=== PATIENT | female | born 1940 | race Caucasian/White ===

== ENCOUNTER → 2016-09-27 | Outpatient (CLI) | payer MEDICARE, OTHER ==
--- NOTE | 2016-09-27 15:42 | MAM ---
History: Well woman exam. Date of exam: 09/27/2016 Services provided: Bilateral full field digital screening mammography. CAD, the images were reviewed with R2 computer aided detection. FINDINGS: Glandular tissue is scattered glandular contour with nodularity and increased mammographic density. Comparison with 2014 study. Stable glandular distribution. No dominant mass, architectural distortion or clustered microcalcification. Vascular and benign-appearing calcifications bilaterally. IMPRESSION: Benign exam Recommendation: Routine annual mammography BIRAD CATEGORY: 2 BENIGN Electronically signed by: Mere Fountain MD 09/27/2016 3:42 PM CDT
== END | disposition home or self-care (01) ==
LOC: MAMMO 14:59
PROVIDERS: ATTEND Family Medicine
DX: Z12.31 Encounter for screening mammogram for malignant neoplasm of breast (principal)

== ENCOUNTER → 2016-10-26 | Outpatient (CLI) | payer MEDICARE, OTHER ==
--- NOTE | 2016-10-26 14:37 | RAD ---
EXAM DESCRIPTION: UGI CLINICAL HISTORY: OTHER DYSPHAGIA COMPARISON: None TECHNIQUE: Preliminary AP general ophthalmologist radiograph. The patient swallowed gas-producing granules, water, and heavy-density barium under fluoroscopic visualization. Patient also drank medium-density barium through a straw, prone position. The images were obtained with the patient upright and horizontal. 22 fluoroscopic images taken. Fluoroscopy time was 3.8 minutes. Cumulative dose: 173.55 mGy. 34.79 Gy-cm2. FINDINGS: On the preliminary general ophthalmologist film, a gas-filled structure is visible in the midline overlying the lower mediastinum above the diaphragms. No significant abnormalities in the pharyngeal phase of swallowing. No aspiration. Primary peristaltic wave is limited in the mid and distal esophagus. Secondary and tertiary contractions are noted. Large, gas-filled hiatal hernia containing almost 50% of the stomach volume. Moderate gastroesophageal reflux from the hernia above the level of the tracheal jessica, almost to the level of the thoracic inlet. Stomach was well distended with contrast material and gas. No significant intrinsic lesions. No mass effect. Duodenal bulb and sweep well-distended with contrast material and gas. Duodenal bulb grossly normal. Large diverticulum in the superior aspect of the third segment of the duodenum. Smaller diverticulum in the proximal jejunum. No Obstruction. IMPRESSION: 1. No aspiration at the larynx. No mass effect on the mid and distal esophagus. Diminished primary peristaltic wave with secondary and tertiary contractions. 2. Large hiatal hernia involving almost half of the stomach volume. Marked gastroesophageal reflux above the level of the tracheal jessica. 3. Large diverticulum in the third segment of the duodenum. Small diverticulum in the proximal jejunum. Electronically signed by: Fahad Farley MD 10/26/2016 2:36 PM CDT Workstation: [id number]
== END | disposition home or self-care (01) ==
LOC: RAD 09:55
PROVIDERS: ATTEND Family Medicine
DX: R13.19 Other dysphagia (principal); K44.9 Diaphragmatic hernia without obstruction or gangrene

== ENCOUNTER → 2017-01-04 | Outpatient (CLI) | payer MEDICARE, OTHER ==
--- NOTE | 2017-01-05 13:32 | US ---
EXAM DESCRIPTION: Thyroid CLINICAL HISTORY: 76 years Female, NODULE COMPARISON: None. FINDINGS: Both lobes of the thyroid are heterogeneous with multiple nodules. The right lobe is 4.6 x 1.9 x 2.1 cm and the left lobe is 4.7 x 2.0 x 2.1 cm with the isthmus 5 mm in thickness. Multiple nodules in each lobe in at least one nodule in the isthmus is identified. On the right, there is a wider than tall densely calcified 1.6 x 1.1 x 0.7 cm nodule in the upper pole within additional wider than tall hypoechoic slightly heterogeneous nodule 1.6 x 1.2 x 0.8 cm in the lower pole. A third small 0.9 x 0.7 x 0.8 cm nodule in the lower pole laterally is also noted. The isthmus demonstrates a hyperechoic wider than tall 1.4 x 1.2 x 0.9 cm nodule just to the right of midline. On the left a wider than tall upper pole mixed hypoechoic and hyperechoic 1.2 x 1.1 x 0.9 cm nodule is noted. An additional isoechoic nodule posteriorly in the mid left lobe that is wider than tall and measures 1.3 x 0.8 x 0.9 cm is present. In the lower pole, a heterogeneous wider than tall hypoechoic partially calcified nodule measures 1.6 x 1.7 x 1.3 cm. IMPRESSION: Mild thyromegaly with multinodular goiter with multiple nodules ranging from subcentimeter to approximately 1.7 cm in maximal diameter bilaterally. An additional thyroid isthmus 1.4 cm nodule is noted. Follow-up sonographic evaluation with repeat imaging in 6-9 months to reevaluate stability of these nodules is recommended. Electronically signed by: German Worthy MD 01/05/2017 1:31 PM CDT
== END ==
LOC: US 14:45
PROVIDERS: ATTEND Family Medicine
DX: E04.1 Nontoxic single thyroid nodule (principal)

== ENCOUNTER → 2017-02-08 | Outpatient (CLI) | payer MEDICARE, OTHER | END | disposition home or self-care (01) | LOC: GMAJ 16:35 | PROVIDERS: ATTEND Family Medicine | DX: I10 Essential (primary) hypertension (principal) ==

== ENCOUNTER 2017-03-30 16:02 | Emergency (ER) | payer MEDICARE, OTHER ==
[2017-03-30 16:21] VITALS: TEMP 98.4
--- NOTE | 2017-03-30 16:43 | RAD ---
EXAM DESCRIPTION: Chest,2 Views CLINICAL HISTORY: cough, sob COMPARISON: October 21, 2013 TECHNIQUE: PA/lateral FINDINGS: Mild cardiomegaly is present with vascularity within the limits of normal. I suspect the patient has a modest retrocardiac hiatal hernia. The lungs are adequately expanded and essentially clear with slightly coarsened basilar markings. Overt edema or dense consolidation or mass is not apparent. Kyphosis of the dorsal spine is noted. IMPRESSION: Cardiomegaly without congestive failure with tortuous calcified aorta and probable moderately large hiatal hernia. Electronically signed by: German Worthy MD 03/30/2017 4:42 PM CDT
[2017-03-30] MEDS ORDERED: SODIUM BICARBONATE VIAL 100 MEQ in SODIUM CHLORIDE 0.9% 1000ML 1,000 ML IVS PRN (16:44)
[2017-03-30] MEDS ORDERED: IPRATROPIUM/ALBUTEROL 3 ML VIAL NEB ONE ×2 (17:05→17:12)
[2017-03-30 17:20] VITALS: O2SAT 94
[2017-03-30] MEDS ORDERED: LEVALBUTEROL NEBS 1.25 MG/3 ML VIAL NEB ONE (18:40)
[2017-03-30] MEDS ORDERED: methylPREDNISolone SODIUM SUC 125 MG/2 ML VIAL IV ONE (18:40)
--- NOTE | 2017-03-30 18:52 | ED.PDOC ---
History of Present Illness - General Chief Complaint: Respiratory Problem Stated Complaint: cough,shortness of breath Time Seen by Provider: 03/30/17 18:33 Source: patient Exam Limitations: no limitations - History of Present Illness Initial Comments: Jenn Vera 76 y/o female stated that she had long standing history of bronchial asthma and had worsening cough and shortness of breath for the last 3 days.No fever ,no chest pains ,no nausea vomiting.Has home Oxygen. Timing/Duration: getting worse, other - 3-4 days ago forgot her LABA and Xopenex at home presently lives with daughter Possible Cause: allergen exposure Improving Factors: nothing Worsening Factors: nothing Associated Symptoms: other - see hpi Allergies/Adverse Reactions: Allergies NSAIDs Allergy (Verified 08/09/13 08:47) Home Medications: Ambulatory Orders Albuterol 2 mg/5 ml [Proventil] 1 unit INH QID 10/21/13 Anastrozole [Arimidex] 1 mg PO AM 10/21/13 Bifidobacterium Infantis [Align] 4 mg PO DAILY 10/21/13 Calcium Carbonate 600 mg PO BID 10/21/13 Fexofenadine HCl [Yvonne Allergy] 180 mg PO AM 10/21/13 Fluticasone/Salmeterol 250/50 [Advair 250/50 Diskus] 2 puff INH BID 10/21/13 Hyoscyamine Sulfate [Symax-Sl] 0.125 mg SL BID 10/21/13 Magnesium Oxide (mg Supplement [Magnesium Oxide] 400 mg PO BID 10/21/13 Pantoprazole Suspension [Protonix Suspension] 40 mg PO AM 10/21/13 Paroxetine HCl [Paxil] 20 mg PO AM 10/21/13 Prednisolone [Millipred] 5 mg PO DAILY 10/21/13 Simvastatin [Zocor] 40 mg PO HS 10/21/13 Benzonatate Perles [Tessalon Perles] 200 mg PO BID #30 cap 03/30/17 Methylprednisolone [Medrol Dose Leland] 1 pack PO BID #1 pack 03/30/17 Review of Systems - Review of Systems Constitutional: States: no symptoms reported EENTM: States: nose congestion Respiratory: States: see HPI Cardiology: States: no symptoms reported Gastrointestinal/Abdominal: States: no symptoms reported Genitourinary: States: no symptoms reported Past Medical History (General) - Patient Medical History Hx Seizures: No Hx Stroke: No Hx Asthma: Yes Hx of COPD: No Hx Cardiac Disorders: Yes Hx Congestive Heart Failure: Yes - diastolic Hx Pacemaker: No Hx Hypertension: Yes Hx Diabetes: No Hx Cancer: Yes - Breast Hx MRSA: No Hx Other PMH: Yes - crohns disease Surgical History: appendectomy, cholecystectomy, tonsillectomy, other - mastectomy left,hysterectomy,urinary bladder susp.,cataract bilateral - Vaccination History Hx Influenza Vaccination: No Hx Pneumococcal Vaccination: Yes - Social History Hx Tobacco Use: No Hx Alcohol Use: No Hx Substance Use: No Hx Physical Abuse: No Hx Emotional Abuse: No Hx Suspected Abuse: No - Activities of Daily Living Patient Lives Alone: No - daughter Grooming Ability: Independent Eating (Feeding) Ability: Independent Toileting Ability: Independent Family Medical History - Family History Mother Family History: Unknown Hx Family Asthma: Yes - parents Hx Family Cancer: Yes - breast-mom Physical Exam - Physical Exam General Appearance: Alert, No apparent distress Eye Exam: bilateral normal ENT Exam: normal ENT inspection, hearing grossly normal, pharynx normal, nasal congestion Neck: non-tender, supple, trachea midline Respiratory: no respiratory distress, decreased breath sounds, wheezing, other - speaks in full sentences Cardiovascular/Chest: normal peripheral pulses, regular rate, rhythm, no murmur Gastrointestinal/Abdominal: non tender, soft, no organomegaly Extremity: no pedal edema, no calf tenderness Neurologic: alert, normal mood/affect, oriented x 3 Skin Exam: normal color, warm/dry Lymphatic: no adenopathy Progress - Progress Progress: 03/30/17 18:57 Vital Signs - 8 hr 03/30/17 03/30/17 03/30/17 16:16 17:13 17:14 Temperature 98.4 F Pulse Rate 60 Pulse Rate [ 61 Right Brachial] Respiratory 20 24 18 Rate Blood Pressure 104/52 [Right Arm] O2 Sat by Pulse 93 L 96 Oximetry 03/30/17 03/30/17 17:20 18:54 Temperature Pulse Rate 87 Pulse Rate [ 58 L Right Brachial] Respiratory 20 18 Rate Blood Pressure 105/49 [Right Arm] O2 Sat by Pulse 94 L 94 L Oximetry 03/30/17 16:23 BLOOD CULTURE Stat 03/31/17 09:00 [facility] Daily Laboratory Results - last 24 hr 03/30/17 03/30/17 16:23 16:46 WBC 8.7 RBC 4.48 Hgb 13.3 Hct 39.4 MCV 88.1 MCH 29.8 MCHC 33.8 RDW 13.4 Plt Count 240 MPV 9.0 Absolute Neuts (auto) 7.00 H Absolute Lymphs (auto) 0.70 L Absolute Monos (auto) 0.60 Absolute Eos (auto) 0.40 Absolute Basos (auto) 0.10 Neutrophils % 80.2 H Lymphocytes % 7.8 L Monocytes % 6.5 Eosinophils % 4.7 Basophils % 0.8 Sodium 138 Potassium 3.9 Chloride 98 L Carbon Dioxide 28 Anion Gap 15.9 BUN 19 H Creatinine 1.10 BUN/Creatinine Ratio 17.3 Random Glucose 94 Serum Osmolality 277.7 Calcium 10.6 H Total Bilirubin 0.7 AST 18 ALT 12 Alkaline Phosphatase 65 Serum Total Protein 6.9 Albumin 4.0 Globulin 2.9 Albumin/Globulin Ratio 1.4 - EKG/XRAY/CT XRAY: chest - cardiomegaly no failure Departure - Departure Clinical Impression: Asthma with acute exacerbation in adult Qualifiers: Asthma severity: unspecified severity Qualified Code(s): J45.901 - Unspecified asthma with (acute) exacerbation Time of Disposition: 20:07 Disposition: Discharge to Home or Self Care Departure Forms: ED Discharge - Pt. Copy, Patient Portal Self Enrollment Instructions: Tips for Controlling Your Asthma, Asthma -- Adult, DI for Asthma -- Adult Referrals: Socrates Mclain MD [Primary Care Provider] - 1-2 Weeks Prescriptions: Benzonatate Perles [Tessalon Perles] 200 mg PO BID #30 cap Methylprednisolone [Medrol Dose Leland] 1 pack PO BID #1 pack Home Medications: Ambulatory Orders Albuterol 2 mg/5 ml [Proventil] 1 unit INH QID 10/21/13 Anastrozole [Arimidex] 1 mg PO AM 10/21/13 Bifidobacterium Infantis [Align] 4 mg PO DAILY 10/21/13 Calcium Carbonate 600 mg PO BID 10/21/13 Fexofenadine HCl [Yvonne Allergy] 180 mg PO AM 10/21/13 Fluticasone/Salmeterol 250/50 [Advair 250/50 Diskus] 2 puff INH BID 10/21/13 Hyoscyamine Sulfate [Symax-Sl] 0.125 mg SL BID 10/21/13 Magnesium Oxide (mg Supplement [Magnesium Oxide] 400 mg PO BID 10/21/13 Pantoprazole Suspension [Protonix Suspension] 40 mg PO AM 10/21/13 Paroxetine HCl [Paxil] 20 mg PO AM 10/21/13 Prednisolone [Millipred] 5 mg PO DAILY 10/21/13 Simvastatin [Zocor] 40 mg PO HS 10/21/13 Benzonatate Perles [Tessalon Perles] 200 mg PO BID #30 cap 03/30/17 Methylprednisolone [Medrol Dose Leland] 1 pack PO BID #1 pack 03/30/17 Additional Instructions: Continue with all home medications and home oxygen;Follow up with primary md call for appointment
[2017-03-30] MEDS ORDERED: BENZONATATE PERLES 100 MG CAP PO ONE (20:12)
[2017-03-30 20:29] VITALS: BP 130/57
== END 2017-03-30 20:29 | disposition home or self-care (01) ==
LOC: ER 16:02
DX: J45.901 Unspecified asthma with (acute) exacerbation (principal); I51.7 Cardiomegaly; I11.0 Hypertensive heart disease with heart failure; I50.30 Unspecified diastolic (congestive) heart failure; Z85.3 Personal history of malignant neoplasm of breast; Z87.891 Personal history of nicotine dependence; Z88.6 Allergy status to analgesic agent
CPT/HCPCS: 71020; 80053; 85025; 94640; J2930; J7614; J7620

== ENCOUNTER 2017-04-13 18:13 | Inpatient (IN) | payer MEDICARE, OTHER ==
[2017-04-13] MEDS ORDERED: ACETAMINOPHEN 325 MG TAB PO ONE (18:40)
[2017-04-13] MEDS ORDERED: IPRATROPIUM/ALBUTEROL 3 ML VIAL NEB ONE ×3 (18:50→18:51)
[2017-04-13] MEDS ORDERED: methylPREDNISolone SODIUM SUC 125 MG/2 ML VIAL IV ONE (19:10)
[2017-04-13] MEDS ORDERED: AZITHROMYCIN IV 500 MG in SODIUM CHLORIDE 0.9% 250ML 250 ML IVPB ONE (19:10)
[2017-04-13] MEDS ORDERED: cefTRIAXone SODIUM 1 GM in SODIUM CHL 0.9% 50ML MIN-BAG+ 50 ML IVPB ONE (19:10)
[2017-04-13] MEDS ORDERED: AZITHROMYCIN IV 500 MG VIAL IVPB ONE (19:23)
[2017-04-13] MEDS ORDERED: cefTRIAXone SODIUM 1 GM VIAL ONE (19:23)
[2017-04-13] MEDS ORDERED: SODIUM CHLORIDE 0.9% 250ML 250 ML ONE (19:24)
[2017-04-13] MEDS ORDERED: SODIUM CHL 0.9% 50ML MIN-BAG+ 50 ML IVPB ONE (19:24)
--- NOTE | 2017-04-13 20:08 | ED.PDOC ---
History of Present Illness - General Time Seen by Provider: 04/13/17 18:15 Source: patient Exam Limitations: no limitations - History of Present Illness Initial Comments: the patient's a 76-year-old female presenting to the emergency room secondary to a COPD exacerbation that apparently started several weeks ago, improved for a period of 5 or 6 days and then has become worse over the last 4- 5 days. The patient did undergo a steroid taper last week. The patient does have a fever here but she did not know that she was having any fevers. She is having a mildly productive cough. She has been doing her nebulizer treatments but only once a day. The patient is feeling weak and somewhat dizzy. Her oxygen saturations were in the high 80s on room air while sitting up. Today. She does get a little more short of breath with lying back. The patient has audible wheezes that can be heard across the room. She has a moderate increased work of breathing with nasal flaring and obvious accessory muscle use. Her oxygen saturations do improved with supplemental oxygen. no chest pains or palpitations. No syncope. The patient was sent over from clinic. Timing/Duration: unsure Severity: moderate Improving Factors: nothing Worsening Factors: nothing Associated Symptoms: cough, fever/chills, malaise, shortness of breath, weakness Allergies/Adverse Reactions: Allergies NSAIDs Allergy (Verified 08/09/13 08:47) Home Medications: Ambulatory Orders Calcium Carbonate 600 mg PO BID 10/21/13 Simvastatin [Zocor] 40 mg PO HS 10/21/13 Amlodipine Besylate 5 mg PO DAILY 04/13/17 Budesonide-Formoterol Fumarate [Symbicort] 1 aer IN BID 04/13/17 Cholecalciferol [Vitamin D] 1,000 unit PO DAILY 04/13/17 Cyanocobalamin Inj [Vitamin B-12 Inj] 1,000 mcg IM MONTHLY 04/13/17 Denosumab [Prolia] 60 mg SC PRN 04/13/17 Dexlansoprazole [Dexilant] 30 mg PO DAILY 04/13/17 Escitalopram Oxalate [Lexapro] 20 mg PO BEDTIME 04/13/17 Ferrous Gluconate [Fergon] 27 mg PO DAILY 04/13/17 Hydrochlorothiazide 12.5 mg PO DAILY 04/13/17 Hyoscyamine Sulfate [Levsin] 0.125 mg PO PRN 04/13/17 Isosorbide Mononitrate [Isosorbide Mononitrate ER] 30 mg PO DAILY 04/13/17 Letrozole 2.5 mg PO DAILY 04/13/17 Levalbuterol Inhaler [Xopenex Hfa 45 Mcg] 2 puff INH PRN 04/13/17 Magnesium 250 mg PO DAILY 04/13/17 Metoprolol Tartrate 25 mg PO BID 04/13/17 Mometasone Furoate Nasal [place] [Nasonex Nasal [place]] 50 mcg NA DAILY 04/13/17 Montelukast [Singulair] 10 mg PO DAILY 04/13/17 Multiple Vitamins W/ Minerals [Multi Complete/Iron] 1 tab PO DAILY 04/13/17 Prednisone 5 mg PO DAILY 04/13/17 Probiotic Product [Probiotic] 1 tab PO DAILY 04/13/17 Quinapril HCl 5 mg PO BID 04/13/17 Tramadol-Acetaminophen [Tramadol Hydrochloride/AC 37.5-325 mg] 1 tab PO BEDTIME 04/13/17 Zolpidem Tartrate [Ambien] 5 mg PO PRN 04/13/17 Review of Systems - Review of Systems Constitutional: States: fever, malaise, weakness EENTM: States: no symptoms reported Respiratory: States: cough, orthopnea, short of breath, wheezing Cardiology: States: no symptoms reported Gastrointestinal/Abdominal: States: no symptoms reported Genitourinary: States: no symptoms reported Musculoskeletal: States: no symptoms reported Skin: States: no symptoms reported Neurological: States: anxiety Endocrine: States: no symptoms reported All other Systems: No Change from Baseline Past Medical History (General) - Patient Medical History Hx Seizures: No Hx Stroke: No Hx Dementia: No Hx Asthma: Yes Hx of COPD: Yes Hx Cardiac Disorders: Yes Hx Congestive Heart Failure: Yes Hx Pacemaker: No Hx Hypertension: Yes Hx Thyroid Disease: Yes - surg 1960 Hx Diabetes: No Hx Gastroesophageal Reflux: Yes Hx Renal Disease: No Hx Cancer: Yes Hx of HIV: No Hx Hepatitis C: No Hx MRSA: No Surgical History: cancer surgery, cholecystectomy, Hysterectomy, other - Vaccination History Hx Tetanus, Diphtheria Vaccination: No Hx Influenza Vaccination: Yes - 2015 Hx Pneumococcal Vaccination: Yes - 2016 Immunizations Up to Date: No - Social History Hx Tobacco Use: No Hx Chewing Tobacco Use: No Hx Alcohol Use: No Hx Substance Use: No Hx Substance Use Treatment: No Hx Depression: Yes Feels Threatened In Home Enviroment: No Feels Threatened In a Relationship: No Hx Physical Abuse: No Hx Emotional Abuse: No Hx Suspected Abuse: No - Female History Patient is a Female of Child Bearing Age (10 -59 yrs old): No Patient : No - Triage Comment ED Triage Comment: HX Overactive Bladder, High Cholesterol, Post Polio Syndrome Family Medical History - Family History Mother Family History: Unknown Living Status: Hx Family Asthma: Yes - parents Hx Family Congestive Heart Failure: Yes Hx Family Hypertension: Yes Hx Family Stroke: Yes - Mother Age of Onset (years of age): 88 Hx Cardiac Disease: Yes - daddy [place] Age of Onset (years of age): 66 Hx Family Diabetes: No Hx Family Cancer: Yes - breast-mom Physical Exam - Physical Exam General Appearance: Alert, Anxious, Obvious distress Eye Exam: bilateral normal Ears, Nose, Throat: hearing grossly normal, normal ENT inspection, normal pharynx Neck: full range of motion, supple, normal inspection Respiratory: chest non-tender, respiratory distress, decreased breath sounds, accessory muscle use, crackles, rhonchi, wheezing Cardiovascular/Chest: normal peripheral pulses, regular rate, rhythm, no edema Peripheral Pulses: radial,right: 2+, radial,left: 2+, dorsalis pedis,right: 2+, dorsalis pedis,left: 2+ Gastrointestinal/Abdominal: non tender, soft Rectal Exam: deferred Back Exam: normal inspection, no CVA tenderness, no vertebral tenderness Extremity: normal range of motion, non-tender, normal inspection, no pedal edema , no calf tenderness, normal capillary refill Neurologic: shot hole shooter II-XII nml as tested, alert, normal mood/affect, oriented x 3 Skin Exam: normal color Comments: Vital Signs - 24 hr 04/13/17 04/13/17 04/13/17 18:16 18:30 19:00 Temperature 101.0 F H Pulse Rate 66 Pulse Rate [ 70 Right Apical] Respiratory 18 22 Rate Blood Pressure 117/52 [Right Arm] O2 Sat by Pulse 89 L 94 L 94 L Oximetry Progress - Progress Progress: 04/13/17 20:11 the patient's a 76-year-old female presenting to the emergency room secondary to what appears to be an acute on chronic COPD exacerbation with probable underlying infection given the fever. She may be having a mild CHF component to this as well. The patient is on supplemental oxygen and has received several breathing treatments. The patient has had a blood culture taken and is receiving a dose of Rocephin and azithromycin. She is also receiving a dose of Solu-Medrol. She has not received any diuretics for the CHF component as it is at this point clinically less an aspect of fluid overload and more probably an aspect of pulmonary hypertension related to his COPD exacerbation. she may yet still require a dose of a diuretic. The patient will be admitted for further management. - Results/Orders Results/Orders: Laboratory Tests 04/13/17 04/13/17 04/13/17 18:55 18:55 18:55 WBC 15.4 H RBC 4.34 Hgb 13.0 Hct 38.7 MCV 89.2 MCH 29.9 MCHC 33.5 RDW 13.6 Plt Count 192 MPV 8.9 Absolute Neuts (auto) 13.60 H Absolute Lymphs (auto) 0.50 L Absolute Monos (auto) 0.90 H Absolute Eos (auto) 0.40 Absolute Basos (auto) 0.10 Neutrophils % 88.2 H Lymphocytes % 2.9 L Monocytes % 6.0 Eosinophils % 2.4 Basophils % 0.5 PT 12.2 INR 1.080 PTT (SP) 29.3 D-Dimer, Quantitative 347 H* Sodium 136 Potassium 4.0 Chloride 98 L Carbon Dioxide 30 Anion Gap 12.0 BUN 18 Creatinine 1.15 BUN/Creatinine Ratio 15.7 Random Glucose 111 H Serum Osmolality 274.6 L Calcium 10.1 Magnesium 1.9 Total Bilirubin 0.7 AST 19 ALT 14 Alkaline Phosphatase 62 Creatine Kinase 38 CK-MB (CK-2) 1.2 CK-MB (CK-2) % Not Reportable Troponin I 0.03 B-Natriuretic Peptide 666.0 H* Serum Total Protein 6.8 Albumin 3.4 Globulin 3.4 Albumin/Globulin Ratio 1.0 L TSH 1.44 chest x-ray does show some mild cardiomegaly. There is possibly a small left lower lobe infiltrate. She does have some air trapping. EKG shows a normal sinus rhythm at 66 bpm. Normal axis. Normal R-wave progression. No acute T-wave changes or ST segment changes concerning for ischemia. Normal corrected QT interval. Departure - Departure Clinical Impression: COPD with acute exacerbation Disposition: Admit Patient Referrals: Socrates Mclain MD [Primary Care Provider] - 1-2 Weeks Home Medications: Ambulatory Orders Calcium Carbonate 600 mg PO BID 10/21/13 Simvastatin [Zocor] 40 mg PO HS 10/21/13 Amlodipine Besylate 5 mg PO DAILY 04/13/17 Budesonide-Formoterol Fumarate [Symbicort] 1 aer IN BID 04/13/17 Cholecalciferol [Vitamin D] 1,000 unit PO DAILY 04/13/17 Cyanocobalamin Inj [Vitamin B-12 Inj] 1,000 mcg IM MONTHLY 04/13/17 Denosumab [Prolia] 60 mg SC PRN 04/13/17 Dexlansoprazole [Dexilant] 30 mg PO DAILY 04/13/17 Escitalopram Oxalate [Lexapro] 20 mg PO BEDTIME 04/13/17 Ferrous Gluconate [Fergon] 27 mg PO DAILY 04/13/17 Hydrochlorothiazide 12.5 mg PO DAILY 04/13/17 Hyoscyamine Sulfate [Levsin] 0.125 mg PO PRN 04/13/17 Isosorbide Mononitrate [Isosorbide Mononitrate ER] 30 mg PO DAILY 04/13/17 Letrozole 2.5 mg PO DAILY 04/13/17 Levalbuterol Inhaler [Xopenex Hfa 45 Mcg] 2 puff INH PRN 04/13/17 Magnesium 250 mg PO DAILY 04/13/17 Metoprolol Tartrate 25 mg PO BID 04/13/17 Mometasone Furoate Nasal [place] [Nasonex Nasal [place]] 50 mcg NA DAILY 04/13/17 Montelukast [Singulair] 10 mg PO DAILY 04/13/17 Multiple Vitamins W/ Minerals [Multi Complete/Iron] 1 tab PO DAILY 04/13/17 Prednisone 5 mg PO DAILY 04/13/17 Probiotic Product [Probiotic] 1 tab PO DAILY 04/13/17 Quinapril HCl 5 mg PO BID 04/13/17 Tramadol-Acetaminophen [Tramadol Hydrochloride/AC 37.5-325 mg] 1 tab PO BEDTIME 04/13/17 Zolpidem Tartrate [Ambien] 5 mg PO PRN 04/13/17 Decision To Admit - Decistion To Admit Decision to Admit Reason: Medical Nature Decision to Admit Date: 04/13/17 Decision to Admit Time: 20:14
--- NOTE | 2017-04-13 20:18 | RAD ---
EXAM: Chest,2 Views CLINICAL INDICATION: 76-year-old female with shortness of breath and cough. TECHNIQUE: Two-view, PA and lateral projections of the chest were obtained. COMPARISON: 03/30/2017. FINDINGS: Stable cardiac and mediastinal silhouette. Heart size is normal. Large hiatal hernia. Lingular opacification of the RIGHT heart border raises the concern for RIGHT middle lobe atelectasis versus patient positioning for which postobstructive atelectasis may be considered in the differential. Lungs are otherwise clear without focal opacity, pneumothorax or pleural effusions. The visualized bones are within normal limits. IMPRESSION: 1. Angular opacification of the RIGHT heart border raises the concern for RIGHT middle lobe atelectasis versus patient positioning for which postobstructive atelectasis or atelectasis secondary to large hiatal hernia may be considered in the differential. Further evaluation with CT may be considered. 2. Large hiatal hernia. Electronically signed by: Jesusita Johnson MD 04/13/2017 8:17 PM [employer] Workstation: [id number]
--- NOTE | 2017-04-13 20:35 | HP ---
SUPERVISING PHYSICIAN: German Marquez MD CHIEF COMPLAINT: Chronic cough and shortness of breath. HISTORY OF PRESENT ILLNESS: This is a 76-year-old female patient who was diagnosed with pneumonia approximately one month ago. She was treated at that time and said although she got better, she has continued to have a chronic cough that has lasted since before she was treated. She does have a history of asthma and chronic obstructive pulmonary and she does take Symbicort, but she rarely takes her short-acting bronchodilators. She saw Fanta Saldaña NP, in clinic a couple of weeks ago and I am uncertain as to what she was treated at that time. She had been treated by Lacie Elias PA-C, at [facility] and was sent to the Emergency Room. She was wheezing at that time although they said her chest x-ray was clear and she was given some breathing treatments at that time and sent home. She was negative for pneumonia at that time. Today, she went to the Urgent Care Clinic at [facility] and saw Fanta Saldaña NP. She was sent to the Emergency Room. In the Emergency Room, her chest x-ray showed a small left lower lobe pneumonia and her O2 sats were in the upper 80s. She was quite tachypneic with her respiratory rate at 22. She received multiple breathing treatments as well as some Solu-Medrol. She was started on Rocephin and azithromycin and I was called for admission for chronic obstructive pulmonary disease exacerbation as well as left lower lobe pneumonia with failed outpatient therapy. PAST MEDICAL HISTORY: 1. Coronary artery disease. 2. Hyperlipidemia. 3. Hypertension. 4. Mild mitral and tricuspid regurgitation as noted on her echocardiogram in August of 2015. 5. Asthma. 6. Crohn's disease on chronic steroids. 7. Peptic ulcer disease. 8. Osteoporosis. 9. Iron deficiency anemia. 10. History of breast cancer in 2014 status post surgical resection. 11. Gastroesophageal reflux disease. PAST SURGICAL HISTORY: 1. Breast surgery. 2. Appendectomy. 3. Tonsillectomy and adenoidectomy. 4. Tubal ligation. 5. Bladder suspension. 6. Cholecystectomy. 7. Hysterectomy. 8. Thyroidectomy. 9. Bilateral cataract removal. 10. Colonoscopy. 11. EGD. OUTPATIENT MEDICATIONS: Per the EMR and awaiting verification. ALLERGIES: NSAIDS WHICH CAUSE BLOODY DIARRHEA. FAMILY HISTORY: Her father of heart disease. Her mother of heart disease, but she also had breast cancer. SOCIAL HISTORY: She denies ever smoking, but she was subjected to secondary smoke for most of her life. She denies any ETOH or illicit drug use. REVIEW OF SYSTEMS: GENERAL: Positive for fatigue. Negative for fever or weight changes. HEENT: Negative for sinus symptoms, ear pain, vision changes or sore throat. RESPIRATORY: As per history of present illness. CARDIAC: Negative for chest pain, wheezing or tachycardia. GASTROINTESTINAL: Negative for nausea, vomiting, diarrhea, constipation or abdominal pain. GENITOURINARY: Negative for hematuria, dysuria or nocturia. MUSCULOSKELETAL: Negative for back pain, arthralgias, myalgias. SKIN: Negative for lesions or rashes. NEUROLOGIC: Negative for headache, weakness or seizures. PHYSICAL EXAMINATION: VITAL SIGNS: Temperature 101. Heart rate 78. Blood pressure 115/51. Respiratory rate 22. O2 saturation 89% on 2 liters nasal cannula, now up to 92% . GENERAL: This is a 76-year-old, obese female who is lying in her hospital bed. She is in no acute distress. HEENT: Normocephalic, atraumatic. Pupils are equal and reactive. Oropharynx is clear. Oral mucous membranes are moist. NECK: Supple without mass. No discernible jugular venous distention. RESPIRATORY: Bilateral rhonchi throughout all lung smith with a few expiratory wheezes in the left mid and lower lung field. She is somewhat diminished at the bases. CARDIOVASCULAR: Regular rate and rhythm. ABDOMEN: Soft, nondistended, nontender. Bowel sounds are positive. EXTREMITIES: No cyanosis, clubbing or edema. NEUROLOGIC: Awake, alert and oriented times three. LABORATORY: White count 15,400 with hemoglobin 13, hematocrit 38.7. Platelet count 192, neutrophils 88.2%. Electrolytes are basically within normal limits with the exception of chloride slightly low at 98. Glucose is slightly high at 111. Serum osmolality is low at 274.6. BNP 656. Cardiac enzymes are negative. TSH is normal at 1.44. All other labs and films have been reviewed via the EMR. ASSESSMENT: 1. Chronic obstructive pulmonary disease with acute exacerbation on Symbicort with a significant history of asthma. 2. Left lower lobe pneumonia with failed outpatient therapy, most likely community acquired. 3. Chronic cough of greater than one month, most likely secondary to #1 and #2. 4. Poor medical compliance with her asthma/chronic obstructive pulmonary disease medications, especially her short-acting beta agonist. 5. History of asthma. 6. Hypertension. 7. Hyperlipidemia. 8. Moderate mitral and tricuspid regurgitation per echocardiogram of August of 2015. 9. Gastroesophageal reflux disease. 10. Coronary artery disease. 11. History of Crohn's on chronic steroids. 12. Osteoporosis. PLAN: We will admit the patient to the hospital. I have started pneumonia protocol and she will continue on azithromycin as well as Rocephin. We will monitor cultures as they become available. I have ordered aggressive pulmonary hygiene including percussion and IPPB as well as scheduled and p.r.n. breathing treatments. I have also ordered her IV steroids and we will taper those down as her condition improves. She will have a chest x-ray in the morning. I have also ordered a urine culture as well as a sputum culture. Blood cultures have been previously ordered. I ordered Protonix for ulcer prophylaxis and Lovenox for DVT prophylaxis. At this point, I will hold off on giving her any extra fluids as there may be a congestive heart failure component involved due to her elevated BNP. Her echocardiogram shows an ejection fraction of 59% from her echocardiogram in 2016. We will continue to monitor the patient closely and follow as needed. Dr. Marquez is the collaborating physician and available for consultation. #[id number] [facility]
[2017-04-13] MEDS ORDERED: ACETAMINOPHEN 325 MG TAB PO PRN (23:00)
[2017-04-13] MEDS ORDERED: LEVALBUTEROL NEBS 1.25 MG/3 ML VIAL INH PRN (23:00)
[2017-04-13] MEDS ORDERED: IV SET AND CAP CHANGE INJ INJ SCH (23:00)
[2017-04-13] MEDS ORDERED: traMADol HCL 50 MG TAB PO PRN (23:09)
--- NOTE | 2017-04-13 23:11 | PCM.CORE ---
Physician DVT/VTE - Prophylaxis Currently: Patient already on anticoagulation therapy - Nurse DVT Assessment & Total Each Risk Factor Represents 3 Points: Age over 75 years, Medical PT with Hx of CT, CHF, Severe infection/sepsis Each Risk Factor Represents 1 Point: Medical PT at Bed Rest Each Risk Factor is 1 Point: Varicose Veins/Edema Legs, Obesity (BMI >25), Serious Lung disease (pnemonia <1month, COPD, emphysema,etc) DVT Assessment Score: 10 - 5 or more Very High Risk Treatments: Early Ambulation *, Sequential Compression Device
[2017-04-13] MEDS: LEVALBUTEROL NEBS 1.25 MG/3 ML VIAL INH SCH (23:19)
[2017-04-13] MEDS ORDERED: HYOSCYAMINE SULFATE 0.125 MG TAB PO PRN (23:30)
[2017-04-13] MEDS ORDERED: ENOXAPARIN SODIUM 40 MG/0.4 ML SYG SUBCU SCH (23:30)
[2017-04-13] MEDS ORDERED: PANTOPRAZOLE SODIUM IV 40 MG VIAL IV SCH (23:30)
[2017-04-13] MEDS ORDERED: methylPREDNISolone SODIUM SUC 125 MG/2 ML VIAL ONE (23:32)
[2017-04-13] MEDS: methylPREDNISolone SODIUM SUC 125 MG/2 ML VIAL IV SCH (23:36)
[2017-04-13] MEDS: guaiFENesin ER TAB 600 MG TAB PO SCH (23:40)
[2017-04-14] MEDS ORDERED: SODIUM CHL 0.9% 50ML MIN-BAG+ 50 ML IVPB ONE ×2 (04:16→14:51)
[2017-04-14] MEDS ORDERED: cefTRIAXone SODIUM 1 GM VIAL ONE ×2 (04:16→14:52)
[2017-04-14] MEDS ORDERED: methylPREDNISolone SODIUM SUC 125 MG/2 ML VIAL ONE (04:16)
[2017-04-14] MEDS: cefTRIAXone SODIUM 1 GM in SODIUM CHL 0.9% 50ML MIN-BAG+ 50 ML IVPB SCH ×2 (04:35→17:11)
[2017-04-14] MEDS: methylPREDNISolone SODIUM SUC 125 MG/2 ML VIAL IV SCH ×3 (05:09→20:22)
--- NOTE | 2017-04-14 07:06 | RAD ---
Procedure: XR CHEST 2 VIEWS Exam Date: 04/14/2017 Ordering Provider: CHRISTIE GE Clinical Indication: Pneumonia Comparison: 04/13/2017 Findings: Cardiomediastinal silhouette is stable. Aortic calcification. Focal lung consolidation: No focal lung consolidation. Pleural effusion: None Pneumothorax: None Bones and soft tissues: No acute osseous abnormalities. Hiatal hernia. Impression: 1. No acute abnormalities in the chest. Electronically signed by: Nico Quiroz MD 04/14/2017 7:05 AM [employer]
[2017-04-14] MEDS: LEVALBUTEROL NEBS 1.25 MG/3 ML VIAL INH SCH ×4 (08:37→20:52)
[2017-04-14] MEDS ORDERED: QUINAPRIL HCL 5 MG PO SCH (09:00)
[2017-04-14] MEDS ORDERED: MOMETASONE FUROATE SCH (09:00)
[2017-04-14] MEDS: hydroCHLOROthiazide 12.5 MG CAP PO SCH (09:55)
[2017-04-14] MEDS: amLODIPine BESYLATE 5 MG TAB PO SCH (09:55)
[2017-04-14] MEDS: predniSONE 5 MG TAB PO SCH (09:55)
[2017-04-14] MEDS: guaiFENesin ER TAB 600 MG TAB PO SCH ×2 (09:55→21:26)
[2017-04-14] MEDS: MONTELUKAST 10 MG TAB PO SCH (09:55)
[2017-04-14] MEDS: FERROUS GLUCONATE 325 MG TAB PO SCH (09:57)
[2017-04-14] MEDS: METOPROLOL TARTRATE 25 MG TAB PO SCH ×2 (09:57→17:10)
[2017-04-14] MEDS: SODIUM CHLORIDE 0.9% (FLUSH) 10 ML SYG IV SCH ×2 (09:58→20:23)
[2017-04-14] MEDS ORDERED: methylPREDNISolone SODIUM SUC 40 MG/ML VIAL IV SCH (10:00)
[2017-04-14] MEDS: ISOSORBIDE MONONITRATE (IMDUR) 30 MG TAB PO SCH (10:01)
[2017-04-14] MEDS: NON-FORMULARY MEDICATION 1 EA MIS (Letrozole [Letrozole] 2.5 MG) PO SCH (10:02)
[2017-04-14] MEDS: BUDESONIDE/FORMOTEROL 160/4.5 60 PUFF/6 GM INH INH SCH ×2 (10:08→20:52)
[2017-04-14] MEDS ORDERED: methylPREDNISolone SODIUM SUC 125 MG/2 ML VIAL IV SCH (14:00)
[2017-04-14] MEDS ORDERED: DEXAMETHASONE INJ 1 MG, SODIUM CHLORIDE 0.9% NEB 3 ML NEB ONE ×2 (14:12)
[2017-04-14] MEDS ORDERED: SODIUM CHLORIDE 0.9% NEB 3 ML VIAL ONE (14:40)
[2017-04-14] MEDS ORDERED: DEXAMETHASONE INJ 4 MG/ML VIAL ONE (14:40)
[2017-04-14] MEDS ORDERED: PANTOPRAZOLE SODIUM TAB 40 MG PO ONE (14:51)
[2017-04-14] MEDS: PANTOPRAZOLE SODIUM TAB 40 MG PO SCH (16:57)
[2017-04-14] MEDS ORDERED: LISINOPRIL 5 MG TAB ONE (19:48)
[2017-04-14] MEDS ORDERED: SODIUM CHLORIDE 0.9% 250ML 250 ML ONE (19:48)
[2017-04-14] MEDS ORDERED: SIMVASTATIN 20 MG TAB ONE (19:48)
[2017-04-14] MEDS ORDERED: ENOXAPARIN SODIUM 40 MG/0.4 ML SYG SUBCU ONE (19:49)
[2017-04-14] MEDS ORDERED: AZITHROMYCIN IV 500 MG VIAL IVPB ONE (19:49)
[2017-04-14] MEDS ORDERED: AZITHROMYCIN IV 500 MG in SODIUM CHLORIDE 0.9% 250ML 250 ML IVPB SCH (20:00)
--- NOTE | 2017-04-14 20:04 | PN ---
DATE: 04/14/17 SUPERVISING PHYSICIAN: German Marquez M.D. SUBJECTIVE: The patient is resting in bed. She does show some mild distress with increased respiratory effort and audible wheezing. She has been afebrile, has not yet produced a good sputum. I discussed with her that we will increase her steroids today as well as try some steroid breathing treatments to see how this will hopefully assist in decreasing her respiratory effort. She does wear oxygen at home and shows low O2 sats when off O2. OBJECTIVE: VITAL SIGNS: Temperature 97.6, pulse 79, blood pressure 103/60, respirations 20, satting 88% on room air and showing 93% on 2 liters nasal cannula at rest. I's and O's were not well monitored as she is voiding. Weight is 98.2 kg which is actually down from admission of 98.4. CHEST: Continues with rhonchi heard throughout with expiratory wheezing which are audible without a stethoscope, severely diminished toward the bases with an extended expiratory phase. HEART: Regular rate and rhythm. ABDOMEN: Soft, obese with positive bowel sounds. EXTREMITIES: No clubbing, cyanosis or edema. NEUROLOGIC: She is alert and oriented times three. LABORATORY: CBC shows white count down to 12,600, hemoglobin 13.4, hematocrit 41.1, platelet count 185,000. Differential continues to show a left shift. Chemistries show normal electrolytes with BUN 23, creatinine is up to 1.45. Liver functions show to be within normal limits. MICROBIOLOGY: Sputum culture is pending. Gram stain is pending. Blood cultures show no growth preliminary. RADIOLOGY: Repeat chest x-ray two view chest per radiology interpretation showed no acute abnormalities in the chest. ASSESSMENT: 1. Chronic obstructive pulmonary disease with acute exacerbation on Symbicort with a significant history of asthma continuing to show persistent wheezing despite aggressive pulmonary hygiene and corticosteroids. 2. Left lower lobe pneumonia having failed outpatient treatment plan, community acquired with sputum cultures pending. 3. Chronic cough for greater than a month most likely secondary to #1 and #2. 4. Poor medical compliance with asthma and chronic obstructive pulmonary disease medications, especially her long acting beta agonist. 5. History of asthma. 6. History of hypertension. 7. Hyperlipidemia. 8. Moderate mitral valve and tricuspid valve regurgitation per echocardiogram on August 2015 with an ejection fraction not available at time of review with the patient having an elevated BNP on admission. Her last echocardiogram showed to be 59%. 9. Gastroesophageal reflux disease. 10. Coronary artery disease. 11. History of Crohn's on chronic steroids. 12. Osteoporosis. PLAN: Will continue with antibiotic therapy today to include Azithromycin and Rocephin. Given that she continues to show exacerbations and distress, will try a Decadron 1 mg nebulizer treatment as well as increase her steroids to 80 mg every 6 hours for 3 doses to reevaluate in the morning. Will await her sputum cultures to further target antibiotic therapy and plan to repeat her laboratory studies and x-ray in the morning. Given that she continues to have some rhonchi given the ejection fraction and steroids, will try some Lasix concerning the steroids may make her fluid status a little excessive. Review of her medication shows that she is only on Hydrochlorothiazide at 12.5. Will continue to monitor closely and again repeat laboratory studies in the morning. Until then, will continue to monitor and treat appropriately. #[id number] [facility]
[2017-04-14] MEDS: ENOXAPARIN SODIUM 40 MG/0.4 ML SYG SUBCU SCH (21:26)
[2017-04-14] MEDS: SIMVASTATIN 20 MG TAB PO SCH (21:26)
[2017-04-14] MEDS: LISINOPRIL 5 MG TAB PO SCH (21:26)
[2017-04-15] MEDS: SODIUM CHLORIDE 0.9% (FLUSH) 10 ML SYG IV PRN ×2 (02:24→05:29)
[2017-04-15] MEDS: methylPREDNISolone SODIUM SUC 125 MG/2 ML VIAL IV SCH ×3 (02:24→21:16)
[2017-04-15] MEDS: ZOLPIDEM TARTRATE 5 MG TAB PO PRN (02:36)
[2017-04-15] MEDS ORDERED: cefTRIAXone SODIUM 1 GM VIAL ONE ×3 (05:22→20:33)
[2017-04-15] MEDS ORDERED: SODIUM CHL 0.9% 50ML MIN-BAG+ 50 ML IVPB ONE ×3 (05:22→20:33)
[2017-04-15] MEDS: cefTRIAXone SODIUM 1 GM in SODIUM CHL 0.9% 50ML MIN-BAG+ 50 ML IVPB SCH ×2 (05:28→17:24)
[2017-04-15] MEDS ORDERED: methylPREDNISolone SODIUM SUC 40 MG/ML VIAL IV SCH (06:00)
[2017-04-15] MEDS: PANTOPRAZOLE SODIUM TAB 40 MG PO SCH (06:11)
[2017-04-15] MEDS: FERROUS GLUCONATE 325 MG TAB PO SCH (08:37)
[2017-04-15] MEDS: METOPROLOL TARTRATE 25 MG TAB PO SCH ×2 (08:37→17:24)
[2017-04-15] MEDS: BUDESONIDE/FORMOTEROL 160/4.5 60 PUFF/6 GM INH INH SCH ×2 (08:56→20:30)
[2017-04-15] MEDS: LEVALBUTEROL NEBS 1.25 MG/3 ML VIAL INH SCH ×4 (08:56→20:30)
[2017-04-15] MEDS: hydroCHLOROthiazide 12.5 MG CAP PO SCH (09:18)
[2017-04-15] MEDS: predniSONE 5 MG TAB PO SCH (09:18)
[2017-04-15] MEDS: amLODIPine BESYLATE 5 MG TAB PO SCH (09:18)
[2017-04-15] MEDS: MONTELUKAST 10 MG TAB PO SCH (09:18)
[2017-04-15] MEDS: SODIUM CHLORIDE 0.9% (FLUSH) 10 ML SYG IV SCH ×2 (09:19→21:15)
[2017-04-15] MEDS: LISINOPRIL 5 MG TAB PO SCH ×2 (09:19→21:15)
[2017-04-15] MEDS: FLUTICASONE PROP 0.05% NASAL 16 GM BTTL BNAS SCH (09:19)
[2017-04-15] MEDS: NON-FORMULARY MEDICATION 1 EA MIS (Letrozole [Letrozole] 2.5 MG) PO SCH (09:19)
[2017-04-15] MEDS: guaiFENesin ER TAB 600 MG TAB PO SCH ×2 (09:19→21:15)
[2017-04-15] MEDS: ISOSORBIDE MONONITRATE (IMDUR) 30 MG TAB PO SCH (09:19)
[2017-04-15] MEDS ORDERED: FUROSEMIDE INJ 40 MG/4 ML VIAL IV ONE (09:23)
[2017-04-15] MEDS ORDERED: SODIUM CHLORIDE 0.9% 500ML 500 ML IVS ONE (09:28)
[2017-04-15] MEDS ORDERED: GLUCAGON INJ 1 MG VIAL SUBCU PRN (10:20)
[2017-04-15] MEDS ORDERED: DEXTROSE 50% 25 GM/50 ML SYG IV PRN (10:20)
[2017-04-15] MEDS ORDERED: FUROSEMIDE INJ 40 MG/4 ML VIAL ONE (10:28)
--- NOTE | 2017-04-15 10:57 | PN ---
SUPERVISING PHYSICIAN: German Marquez MD DATE: 04/15/17 SUBJECTIVE: The patient was sitting on the side of the bed in no apparent distress with an increased respiratory effort. No audible wheezing was heard. The patient is afebrile. We discussed the elevated D-dimer and elevated BNP. We talked about increasing her activity level, adding Lasix for the heart failure and 500 mL of IV fluid, normal saline, to assist with her kidney function. She is wearing oxygen at present and is able to converse freely, however, with ambulation, she does get short of breath. She was a little bit worried about going to the bathroom with the Lasix, but she will wearing her oxygen during that. She will also be supplemented during transportation to and from x-ray for the CT and lab work for tomorrow. OBJECTIVE: VITAL SIGNS: Temperature 97.8. Pulse 75. Blood pressure 131/77. Respiratory rate 16. Oxygen saturation 96% with oxygen today. Her intakes and outputs were approximately equal with 40 cc more in than out. Her weight did increase from 98.29 kg to 98.79 kg overnight. LUNGS: Her respiratory effort was even and unlabored. Breath sounds were clear to auscultation bilaterally, anterior and posterior. CARDIAC: She did have a 2+ systolic murmur that radiated into the carotid arteries. ABDOMEN: Soft. She is obese. Bowel sounds are active in all 4 quadrants. No tenderness to palpation. EXTREMITIES: No clubbing to nails. No cyanosis or edema. NEUROLOGIC: She is alert and oriented times 3. LABORATORY: CBC shows a white blood count of 12,000, hemoglobin 12.7, hematocrit 37.9, platelet count 210. Metabolic panel shows sodium 138, potassium 3.6, chloride 100, CO2 28, BUN 29, creatinine 0.94 which was improved. Glucose 244, increased from yesterday. Her liver functions were normal. Albumin is normal. D-dimer on 04/13/17 was 347, BNP on 04/13/17 was 666. MICROBIOLOGY: Sputum is still pending. RADIOLOGY: No new orders obtained. ASSESSMENT: 1. Chronic obstructive pulmonary disease with acute exacerbation on Symbicort with a significant history of asthma continuing to show persistent wheezing despite aggressive pulmonary hygiene and corticosteroids. 2. Left lower lobe pneumonia having failed outpatient treatment plan, community acquired with sputum cultures pending. 3. Chronic cough for greater than a month most likely secondary to #1 and #2. 4. Poor medical compliance with asthma and chronic obstructive pulmonary disease medications, especially her long acting beta agonist. 5. History of asthma. 6. History of hypertension. 7. Hyperlipidemia. 8. Moderate mitral valve and tricuspid valve regurgitation per echocardiogram on August 2015 with an ejection fraction not available at time of review with the patient having an elevated BNP on admission. Her last echocardiogram showed to be 59%. 9. Gastroesophageal reflux disease. 10. Coronary artery disease. 11. History of Crohn's on chronic steroids. 12. Osteoporosis. PLAN: We will continue with antibiotic therapy including azithromycin and Rocephin. She has improved with the increased steroid from yesterday. However , with her elevated BNP and D-dimer, we will also add some Lasix to improve her fluid overload. We will also obtain a CBC, CMP, BNP in the morning. CTA will be obtained today. She will be placed on sliding scale insulin due to her elevated blood sugars. She does not have a history of diabetes, however, with the steroids and the increased blood sugars, we will add the insulin. She will be given 40 mg of Lasix IV push today and normal saline 500 cc at 75 cc an hour today times one dose of each. She will be reevaluated tomorrow. #[id number] [facility]
--- NOTE | 2017-04-15 11:42 | RAD ---
EXAM DESCRIPTION: Chest,2 Views CLINICAL HISTORY: 76 years Female, COPD COMPARISON: 14 April 2017 TECHNIQUE: PA/lateral FINDINGS: Minimal interstitial infiltrate is observed at the left lung base in the retrocardiac position. The right chest is clear. Mild cardiomegaly is evident. No pleural fluid is seen. Degenerative changes are seen in the thoracic spine. IMPRESSION: Minimal left basilar infiltrate is observed. Electronically signed by: Shai Shea MD 04/15/2017 11:41 AM EDITORIAL MANAGER
--- NOTE | 2017-04-15 11:59 | CT ---
EXAM DESCRIPTION: CTA Chest CLINICAL HISTORY: 76 years Female, elevated DDimer and SOB COMPARISON: Chest x-ray dated 14 April 2017 TECHNIQUE: Transaxial images were obtained during injector administrated intravenous contrast media. Sagittal coronal and multiplanar MPI reconstruction was performed.This exam was performed according to our departmental dose-optimization program, which includes automated exposure control, adjustment of the mA and/or kV according to patient size and/or use of iterative reconstruction technique. FINDINGS: The thyroid is unremarkable. No pathologic axillary adenopathy is observed. No hilar or mediastinal adenopathy is seen. Some coronary artery calcification is noted. A large hiatus hernia is observed. No pleural fluid is seen. No adrenal masses are detected. Minimal basilar subsegmental atelectasis is observed. Mild bullous changes are observed in the right lung apex. Calcific atherosclerotic changes observed in the vascular aorta. No evidence of a pulmonary embolus is seen. Mild degenerative changes are seen in the thoracic spine. IMPRESSION: 1. No evidence of pulmonary most is seen. 2. Minimal bilateral atelectatic type parenchymal changes are observed. Electronically signed by: Shai Shea MD 04/15/2017 11:58 AM MANAGER PIPELINE
[2017-04-15] MEDS: INSULIN LISPRO 100 UNITS/ML PEN SUBCU SCH ×3 (12:06→21:10)
[2017-04-15] MEDS ORDERED: AZITHROMYCIN 250 MG TAB PO SCH (21:00)
[2017-04-15] MEDS: ENOXAPARIN SODIUM 40 MG/0.4 ML SYG SUBCU SCH (21:13)
[2017-04-15] MEDS: SIMVASTATIN 20 MG TAB PO SCH (21:16)
[2017-04-16] MEDS: ZOLPIDEM TARTRATE 5 MG TAB PO PRN (00:06)
[2017-04-16] MEDS ORDERED: METOPROLOL TARTRATE INJ 5 MG/5 ML VIAL IV ONE (04:24)
[2017-04-16] MEDS: cefTRIAXone SODIUM 1 GM in SODIUM CHL 0.9% 50ML MIN-BAG+ 50 ML IVPB SCH (05:27)
[2017-04-16] MEDS: methylPREDNISolone SODIUM SUC 125 MG/2 ML VIAL IV SCH (05:40)
[2017-04-16] MEDS: PANTOPRAZOLE SODIUM TAB 40 MG PO SCH (05:56)
[2017-04-16] MEDS: INSULIN LISPRO 100 UNITS/ML PEN SUBCU SCH ×2 (07:54→11:57)
[2017-04-16] MEDS: METOPROLOL TARTRATE 25 MG TAB PO SCH (07:57)
[2017-04-16] MEDS: FERROUS GLUCONATE 325 MG TAB PO SCH (07:57)
[2017-04-16] MEDS ORDERED: FUROSEMIDE INJ 40 MG/4 ML VIAL IV ONE (08:43)
[2017-04-16] MEDS: LEVALBUTEROL NEBS 1.25 MG/3 ML VIAL INH SCH ×2 (08:44→11:50)
[2017-04-16] MEDS: BUDESONIDE/FORMOTEROL 160/4.5 60 PUFF/6 GM INH INH SCH (08:45)
[2017-04-16] MEDS: predniSONE 5 MG TAB PO SCH (09:38)
[2017-04-16] MEDS: LISINOPRIL 5 MG TAB PO SCH (09:38)
[2017-04-16] MEDS: MONTELUKAST 10 MG TAB PO SCH (09:38)
[2017-04-16] MEDS: ISOSORBIDE MONONITRATE (IMDUR) 30 MG TAB PO SCH (09:38)
[2017-04-16] MEDS: FLUTICASONE PROP 0.05% NASAL 16 GM BTTL BNAS SCH (09:38)
[2017-04-16] MEDS: amLODIPine BESYLATE 5 MG TAB PO SCH (09:38)
[2017-04-16] MEDS: guaiFENesin ER TAB 600 MG TAB PO SCH (09:38)
[2017-04-16] MEDS: hydroCHLOROthiazide 12.5 MG CAP PO SCH (09:38)
[2017-04-16] MEDS: SODIUM CHLORIDE 0.9% (FLUSH) 10 ML SYG IV SCH (09:39)
[2017-04-16 09:44] VITALS: O2SAT 96
[2017-04-16] MEDS: NON-FORMULARY MEDICATION 1 EA MIS (Letrozole [Letrozole] 2.5 MG) PO SCH (09:50)
[2017-04-16 12:09] VITALS: BP 121/69; TEMP 98.8
--- NOTE | 2017-04-16 20:00 | DS ---
SUPERVISING PHYSICIAN: German Marquez M.D. DISCHARGE DIAGNOSIS: 1. Atrial fibrillation with rapid ventricular response and elevated troponin. 2. Congestive heart failure. 3. Chronic obstructive pulmonary disease with acute exacerbation on Symbicort with a significant history of asthma. 4. Left lower lobe pneumonia with failed outpatient therapy, most likely community acquired. 5. Chronic cough of greater than one month, most likely secondary to #1 and #2. 6. Poor medical compliance with her asthma/chronic obstructive pulmonary disease medications, especially her short-acting beta agonist. 7. History of asthma. 8. Hypertension. 9. Hyperlipidemia. 10. Moderate mitral and tricuspid regurgitation per echocardiogram of August of 2015. 11. Gastroesophageal reflux disease. 12. Coronary artery disease. 13. History of Crohn's on chronic steroids. 14. Osteoporosis. HISTORY OF PRESENT ILLNESS: Ms. Castillo is a 76 year-old white female patient who was diagnosed with pneumonia approximately 1 month prior to admission. She was treated at the time and got somewhat better. She continued to have a chronic cough and some shortness of breath due to her history of asthma and chronic obstructive pulmonary disease. She presented to the [facility] and was sent to the Emergency Room for evaluation. She was admitted to the hospital for exacerbation of chronic obstructive pulmonary disease and left lower lobe pneumonia with failed outpatient treatment. HOSPITAL COURSE: After admission, she was placed on a declining dose of steroids, antibiotics and updraft treatments. She continued to improve somewhat from day 1 to day 2. Day 3, it was noted that she had an elevated D- dimer and BNP. She was given 40 of Lasix IV push. A CTA was ordered due to the elevated D-dimer and she was given 500 mL of IV fluids at Radiology request due to kidney function. The CTA was negative and she continued to improve throughout the day, however on the blade operator of 04/16/17, she became short of breath and had some chest pressure and discomfort. Her telemetry indicated she was in atrial fibrillation with a rapid ventricular response. She was given 5 mg of Metoprolol IV push with little improvement of her symptomatology. Cardizem 10 mg was given times 2. Her symptoms improved. By 8:00 AM she was in sinus rhythm with a rate of 70 to 80. She was still somewhat short of breath with ambulation and activity due to the heart failure. She was given another 40 mg of IV Lasix. Her tab builder was called and consulted, Dr. Mathis. The tab builder motor vehicle or caravan salesperson returned the call and was concerned about her atrial fibrillation and slightly elevated troponin, and she was transferred to [facility] for cardiac evaluation and close followup for congestive heart failure and atrial fibrillation with rapid ventricular response and an echocardiogram. Dr. Caal, the hospitalist, accepted this transfer. DISCHARGE PLAN: The patient was transferred to [facility] in stable condition for close cardiac followup and evaluation due to atrial fibrillation with rapid ventricular response and elevated troponin level, and congestive heart failure. She will followup with Dr. Mclain in 2 weeks after discharge from [place]. Her discharge medications are as follows: 1. Simvastatin 40 mg p.o. every h.s. 2. Calcium carbonate 600 mg p.o. b.i.d. 3. Vitamin D3 1,000 units p.o. daily. 4. Symbicort 1 inhalation b.i.d. 5. Quinapril 5 mg 1 p.o. b.i.d. 6. Prednisone 5 mg p.o. daily. 7. Nasonex nasal spray 1 spray to each nare daily. 8. Singulair 10 mg 1 p.o. daily. 9. Metoprolol tartrate 25 mg 1 p.o. b.i.d. 10. Magnesium 250 mg 1 p.o. daily. 11. Escitalopram 20 mg 1 p.o. at h.s. 12. Letrozole 2.5 mg 1 p.o. daily. 13. Isosorbide mononitrate 30 mg p.o. daily. 14. Hyoscyamine sulfate 0.125 mg p.o. as needed. 15. Hydrochlorothiazide 12.5 mg p.o. daily. 16. Ferrous gluconate 27 mg p.o. daily. 17. Dexilant 30 mg p.o. daily. 18. Cyanocobalamin 1,000 mcg per mL injections 1 mL IM monthly. 19. Multivitamin with minerals 1 tab p.o. daily. 20. Probiotic product 1 tab p.o. daily. 21. Amlodipine 5 mg 1 tablet p.o. daily. 22. Tramadol Acetaminophen 37.5/325 on tablet p.o. at bedtime. 23. Zolpidem tartrate 5 mg 1 p.o. p.r.n. at night. 24. Prolia 60 mg per mL. She gets 60 mg 1 mL subcue p.r.n. 25. Xopenex HFA 45 mcg per actuation, 2 puffs every 4 to 6 hours p.r.n. 26. Nitroglycerin Nitrostat 0.4 mg 1 tablet sublingually every 5 minutes p.r.n. chest pain, maximum of 3 doses, then go to the Emergency Room. Dr. Marquez is the collaborating physician available for consultation. #[id number] [facility]
== END 2017-04-16 12:05 | disposition short-term general hospital (02) | DRG 190 ==
LOC: ER 18:13 → MS 20:34 → OBSVTOIN 20:34
PROVIDERS: ADMIT Nurse Practitioner Acute Care; ATTEND Nurse Practitioner Family
PROC: B32TYZZ Computerized Tomography (CT Scan) of Left Pulmonary Artery using Other Contrast (ICD-10-PCS; principal; 2017-04-15)
PROC: B32SYZZ Computerized Tomography (CT Scan) of Right Pulmonary Artery using Other Contrast (ICD-10-PCS; 2017-04-15)
DX: J44.0 Chronic obstructive pulmonary disease with (acute) lower respiratory infection (principal); J18.9 Pneumonia, unspecified organism; K50.90 Crohn's disease, unspecified, without complications; J45.909 Unspecified asthma, uncomplicated; E78.5 Hyperlipidemia, unspecified; K21.9 Gastro-esophageal reflux disease without esophagitis; I25.10 Atherosclerotic heart disease of native coronary artery without angina pectoris; I08.1 Rheumatic disorders of both mitral and tricuspid valves; T50.996A Underdosing of other drugs, medicaments and biological substances, initial encounter; E66.9 Obesity, unspecified; I48.91 Unspecified atrial fibrillation; I11.0 Hypertensive heart disease with heart failure; I50.9 Heart failure, unspecified; M81.0 Age-related osteoporosis without current pathological fracture; Z91.128 Patient's intentional underdosing of medication regimen for other reason; Z79.899 Other long term (current) drug therapy; Y92.009 Unspecified place in unspecified non-institutional (private) residence as the place of occurrence of the external cause; Z79.51 Long term (current) use of inhaled steroids; R79.1 Abnormal coagulation profile; D50.9 Iron deficiency anemia, unspecified

== ENCOUNTER → 2017-07-25 | Outpatient (CLI) | payer MEDICARE, OTHER | LOC: LAB.O 14:13 | PROVIDERS: ATTEND Internal Medicine Gastroenterology | DX: R10.13 Epigastric pain (principal); R11.0 Nausea; K44.9 Diaphragmatic hernia without obstruction or gangrene; K25.0 Acute gastric ulcer with hemorrhage; Z86.010 Personal history of colon polyps ==

== ENCOUNTER → 2017-08-08 | Outpatient (CLI) | payer MEDICARE, OTHER ==
--- NOTE | 2017-08-08 14:40 | US ---
EXAM DESCRIPTION: Bilateral lower extremity arterial Doppler ultrasound CLINICAL HISTORY: Claudication due to peripheral vascular disease COMPARISON: None TECHNIQUE: Grayscale and color Doppler sonographic evaluations of major arteries in both lower extremities. FINDINGS: Major arterial segments of both lower extremities are patent, with triphasic flow waveforms. Peak systolic flow velocities (in cm/sec) as follows: Right lower extremity, Common femoral artery, 118 Superficial femoral artery proximal, 113 Superficial femoral artery mid, 111 Superficial femoral artery distal, 94 Popliteal artery, 55 Posterior tibial artery, 111 Peroneal artery, 86 Dorsalis pedis artery, 46 Left lower extremity, Common femoral artery, 104 Superficial femoral artery proximal, 99 Superficial femoral artery mid, 108 Superficial femoral artery distal, 110 Popliteal artery, 84 Posterior tibial artery, 107 Peroneal artery, 81 Dorsalis pedis artery, 82 IMPRESSION: Major arterial segments in both lower extremities are patent, without flow limiting stenosis based on velocity criteria Electronically signed by: Kenny Baldwin MD 08/08/2017 2:39 PM [employer]
== END ==
LOC: US 14:30
PROVIDERS: ATTEND Family Medicine
DX: I70.213 Atherosclerosis of native arteries of extremities with intermittent claudication, bilateral legs (principal)

== ENCOUNTER 2017-09-05 17:35 | Inpatient (IN) | payer MEDICARE, OTHER ==
--- NOTE | 2017-09-05 17:37 | HP ---
SUPERVISING PHYSICIAN: German Marquez M.D. CHIEF COMPLAINT: Shortness of breath. HISTORY OF PRESENT ILLNESS: Ms. Castillo is a 77 year-old female patient that has had some ongoing shortness of breath that has worsened over the last 5 days. She does have a history of asthma and chronic obstructive pulmonary disease, and was seen by Dr. Mclain in the clinic today. The patient noted that this past Tuesday she started having a little wheezing that progressively worsened. Today in the clinic, it was noted that on room air she was satting in the mid 80s with significant exertional dyspnea. She is on medical therapy for treatment of her underlying asthma and has been utilizing nebulizer treatments with no significant improvement over the last 5 days anywhere from 4 to 6 hours. Given the degree of desaturation an failure of improvement of symptoms over the last 5 days, the patient is now going to be admitted to the Medical/Surgical floor for ongoing treatment of exacerbation of chronic obstructive pulmonary disease and acute bronchitis with further treatment and evaluation. The patient is admitted in stable condition. PAST MEDICAL HISTORY: 1. Coronary artery disease. 2. Hyperlipidemia. 3. Hypertension. 4. Asthma. 5. Chronic obstructive pulmonary disease. 6. Mild mitral and tricuspid regurgitation with last echocardiogram in August 2015. 7. Crohn's disease on chronic steroids. 8. Peptic ulcer disease. 9. Osteoporosis. 10. Iron deficiency anemia. 11. History of breast cancer in 2013 with post surgical resection. 12. Gastroesophageal reflux disease. PAST SURGICAL HISTORY: 1. Breast surgery. 2. Appendectomy. 3. Tonsillectomy and adenoidectomy. 4. Tubal ligation. 5. Bladder suspension. 6. Cholecystectomy. 7. Hysterectomy. 8. Thyroidectomy. 9. Bilateral cataract removal. 10. Colonoscopy. CURRENT MEDICATIONS: 1. Incruse Ellipta 1 inhaled daily. 2. Prolia 60 mg subcue as needed. 3. Vitamin D 1,000 units daily. 4. Vitamin B12 injection 1,000 mcg monthly. 5. Singulair 10 mg daily. 6. Letrozole 2.5 mg daily. 7. Fergon 27 mg daily. 8. Lexapro 20 mg at bedtime. 9. Ambien 1 or 2 at bedtime. 10. Tramadol 1 tablet every 4 hours as needed. 11. Zocor 20 mg h.s. 12. Zofran 4 mg as needed every 8 hours. 13. Nasonex nasal spray 50 mcg each nostril twice daily. 14. Toprol XL 25 mg b.i.d. 15. Namzaric 28-10 mg 1 capsule at bedtime. 16. Magnesium oxide 400 mg b.i.d. 17. Levsin 0.125 mg daily. 18. Hydrochlorothiazide 25 mg daily. 19. Vitamin D3 2,000 units daily. 20. Calcium carbonate 600 mg daily. 21. Symbicort 160-4.5 mcg per actuation, 2 actuators inhaled b.i.d. ALLERGIES: NSAIDs. FAMILY HISTORY: Father from heart disease. Mother had breast cancer and heart disease. SOCIAL HISTORY: The patient has never smoked tobacco but was exposed to secondary smoke from most of her life. She denies any illicit drugs or alcohol usage. She live in [place], [place] and is . REVIEW OF SYSTEMS: CONSTITUTIONAL: She denied any fevers, fatigue or chills. HEENT: No nasal congestion, sore throat, ear aches. RESPIRATORY: As noted in History of Present Illness, worsening shortness of breath with expiratory wheezing. CARDIOVASCULAR: Denies any chest pains, orthopnea, palpitations or pedal edema. GASTROINTESTINAL: Denies any diarrhea, constipation, abdominal pains, nausea or vomiting. GENITOURINARY: Denies any dysuria, hematuria or other urinary symptoms. NEUROLOGIC: Denies any ataxia, dizziness, headaches or seizures. PHYSICAL EXAMINATION: VITAL SIGNS: Temperature on admission was 98.2, pulse 73, blood pressure 165/77 , respirations 20 to 22 with 91% on room air after breathing treatment. At rest prior to admission from the clinic, the patient was showing desaturation into the mid 80s at rest with minimal improvement after breathing treatments. Admission weight 97.2 kg. GENERAL: The patient on admission to the Medical/Surgical floor appeared to be comfortable in no acute distress and alert. HEENT: Tympanic membranes are clear bilaterally. Oropharynx was pink and moist without any lesions. NECK: Supple, non-tender with full range of motion. No jugular venous distention. CHEST: Breath sounds were diminished throughout with inspiratory and expiratory wheezing with a prolonged expiratory phase. No rales or rhonchi were noted. CARDIOVASCULAR: Regular rate and rhythm without appreciable murmurs, gallops, or rubs. ABDOMEN: Obese but soft, non-tender. Positive bowel sounds. EXTREMITIES: There is no clubbing, cyanosis or edema. There was notable petechial rash from her foot up to above the knees that seems to be primarily over the left leg than the right and is more of a pruritic type rash. No ecchymotic areas are noted. NEUROLOGIC: She is alert and oriented times three. LABORATORY: CBC on admission showed white count 7,200, hemoglobin 13.6, hematocrit 40.8, platelet count 180,000. Differential did show to be without a left shift. Chemistry showed normal electrolytes with potassium 3.7, carbon dioxide was elevated at 35 with BUN 12, creatinine 0.88, blood sugar 100, calcium 10.5, magnesium 2.0, lactic acid 1.0. Liver functions all showed to be within normal limits. Troponin was 0.03 with BNP of 517. Urinalysis showed to be within normal limits. MICROBIOLOGY: Blood cultures were pending. RADIOLOGY: Two view chest x-ray per radiology interpretation showed COPD but no lobar consolidations. ASSESSMENT: 1. Acute exacerbation of chronic obstructive pulmonary disease with bronchial asthma failing to respond to outpatient treatment with the patient being on chronic O2 but showing significant desaturations. 2. History of asthma. 3. Hypertension. 4. Hyperlipidemia. 5. History of moderate mitral and tricuspid regurgitation with last echocardiogram noted in charts to be August 2015 awaiting review of report. 6. Gastroesophageal reflux disease. 7. Coronary artery disease. 8. History of Crohn's having previously been on chronic steroids. 9. Osteoporosis. 10. Alzheimer's dementia. 11. Obesity as noted with a body mass index of 31.7. PLAN: The patient is going to be admitted to the Medical/Surgical floor for further treatment and evaluation of exacerbation of her asthma and chronic obstructive pulmonary disease. She will be started on aggressive pulmonary hygiene with q.i.d. DuoNeb treatments and initiation of corticosteroids with Solu-Medrol 125 mg to taper initially to 60 mg every 6 hours for 4 doses. Will start her on parenteral antibiotics to include Rocephin and azithromycin given her degree of COPD and current exacerbation, and await a sputum culture. She will be on DVT prophylaxis as per protocol. Will resume her home medications once they have been updated and verified. Will anticipate length of stay to be at least 2 to 3 days until clinically stable. Once stable, will continue with outpatient therapy treatment in the outpatient setting and close followup with Dr. Mclain. #[id number] [facility]
[2017-09-05] MEDS ORDERED: ACETAMINOPHEN 325 MG TAB PO PRN (17:44)
[2017-09-05] MEDS ORDERED: SODIUM CHLORIDE 0.9% (FLUSH) 10 ML SYG IV PRN (17:44)
[2017-09-05] MEDS ORDERED: ALBUTEROL SULFATE 2.5 MG/3 ML VIAL NEB PRN (17:44)
[2017-09-05] MEDS ORDERED: methylPREDNISolone SODIUM SUC 125 MG/2 ML VIAL IV ONE (17:52)
[2017-09-05] MEDS ORDERED: MAGNESIUM SULFATE PREMIX 2GM 2 GM in PREMIX BAG 1 BAG IVPB ONE ×2 (17:53→19:30)
[2017-09-05] MEDS: IPRATROPIUM/ALBUTEROL 3 ML VIAL INH SCH ×2 (17:57→19:35)
--- NOTE | 2017-09-05 17:58 | PCM.CORE ---
Physician DVT/VTE - Nurse DVT Assessment & Total Each Risk Factor Represents 3 Points: Age over 75 years, Medical PT with Hx of ME, CHF, Severe infection/sepsis Each Risk Factor is 1 Point: Serious Lung disease (pnemonia <1month, COPD, emphysema,etc) DVT Assessment Score: 7 - 5 or more Very High Risk Treatments: Early Ambulation *, Sequential Compression Device Pharmacological: Enoxaparin 40mg SQ Daily
[2017-09-05] MEDS ORDERED: AZITHROMYCIN IV 500 MG in SODIUM CHLORIDE 0.9% 250ML 250 ML IVPB SCH (18:00)
[2017-09-05] MEDS ORDERED: SODIUM CHL 0.9% 50ML MIN-BAG+ 50 ML IVPB ONE ×2 (18:15→19:16)
[2017-09-05] MEDS ORDERED: cefTRIAXone SODIUM 1 GM VIAL ONE ×2 (18:15→19:16)
--- NOTE | 2017-09-05 18:22 | RAD ---
Procedure: XR CHEST 2 VIEWS Exam Date: 09/05/2017 5:49 PM CDT Ordering Provider: Miguel Britt Clinical Indication: copd exacerbation Comparison: April 15, 2017 Findings: The lungs are clear and well-aerated. Lungs are hyperexpanded. No pleural effusion or pneumothorax. Heart size is enlarged. Impression: Cardiomegaly. COPD. No lobar consolidation. Electronically signed by: Eryn Trotter MD 09/05/2017 6:20 PM CDT
[2017-09-05] MEDS: IV SET AND CAP CHANGE INJ INJ SCH (18:25)
[2017-09-05] MEDS: cefTRIAXone SODIUM 1 GM in SODIUM CHL 0.9% 50ML MIN-BAG+ 50 ML IVPB SCH (18:25)
[2017-09-05] MEDS ORDERED: MAGNESIUM SULFATE PREMIX 2GM 50 ML IVPB ONE (19:16)
[2017-09-05] MEDS ORDERED: SODIUM CHLORIDE 0.9% 250ML 250 ML ONE (19:16)
[2017-09-05] MEDS ORDERED: AZITHROMYCIN IV 500 MG VIAL IVPB ONE (19:17)
[2017-09-05] MEDS ORDERED: NON-FORMULARY MEDICATION 1 EA MIS (Denosumab [Prolia] 60 MG) SC SCH (20:30)
[2017-09-05] MEDS: NON-FORMULARY MEDICATION 1 EA MIS (Memantine Hcl-Donepezil Hcl [Namzaric 28-10 Mg] 1 CAP) PO SCH (20:51)
[2017-09-05] MEDS ORDERED: ESCITALOPRAM 10 MG TAB ONE (20:53)
[2017-09-05] MEDS ORDERED: SIMVASTATIN 20 MG TAB ONE (20:53)
[2017-09-05] MEDS: METOPROLOL SUCCINATE XL 25 MG TAB PO SCH (20:54)
[2017-09-05] MEDS: AZITHROMYCIN IV 500 MG in SODIUM CHLORIDE 0.9% 250ML 250 ML IVPB SCH (20:55)
[2017-09-05] MEDS: ENOXAPARIN SODIUM 40 MG/0.4 ML SYG SUBCU SCH (20:55)
[2017-09-05] MEDS: SODIUM CHLORIDE 0.9% (FLUSH) 10 ML SYG IV SCH (20:56)
[2017-09-05] MEDS ORDERED: SIMVASTATIN 20 MG PO SCH (21:00)
[2017-09-05] MEDS ORDERED: NON-FORMULARY MEDICATION 1 EA MIS (Escitalopram Oxalate [Lexapro] 20 MG) PO SCH (21:00)
[2017-09-05] MEDS ORDERED: NON-FORMULARY MEDICATION 1 EA MIS (Budesonide-Formoterol Fumarate [Symbicort 160-4.5 Mcg/A IN SCH (21:00)
[2017-09-05] MEDS ORDERED: PANTOPRAZOLE SODIUM IV 40 MG VIAL IV SCH (21:00)
[2017-09-05] MEDS: methylPREDNISolone SODIUM SUC 125 MG/2 ML VIAL IV SCH (23:39)
[2017-09-06] MEDS: TEMAZEPAM 15 MG CAP PO PRN (00:34)
[2017-09-06] MEDS: methylPREDNISolone SODIUM SUC 125 MG/2 ML VIAL IV SCH ×3 (06:11→17:42)
[2017-09-06] MEDS: cefTRIAXone SODIUM 1 GM in SODIUM CHL 0.9% 50ML MIN-BAG+ 50 ML IVPB SCH ×2 (06:11→17:42)
--- NOTE | 2017-09-06 07:30 | RAD ---
EXAM DESCRIPTION: Chest,2 Views CLINICAL HISTORY: Pneumonia COMPARISON: September 05, 2017 TECHNIQUE: PA/lateral FINDINGS: Two views of the chest demonstrate osteopenia and kyphosis of the dorsal spine with aortic arch calcification and modest stable cardiomegaly. Slightly coarsened markings in the right infrahilar region are now apparent with stranding in the medial left lung base. Bronchitis or minimal atelectasis or minimal developing basilar bronchopneumonia should be considered. The mid and upper lung smith are clear. Vascularity is upper limits of normal without overt failure. IMPRESSION: Slight deterioration of the chest with coarse right infrahilar markings and stranding in the medial left lung base suggesting early basilar bronchopneumonia. Cardiomegaly with upper normal vascularity. Electronically signed by: German Worthy MD 09/06/2017 7:29 AM CDT
[2017-09-06] MEDS: SODIUM CHLORIDE 0.9% (FLUSH) 10 ML SYG IV SCH ×2 (08:21→20:36)
[2017-09-06] MEDS: MONTELUKAST 10 MG TAB PO SCH (08:26)
[2017-09-06] MEDS: hydroCHLOROthiazide 25 MG TAB PO SCH (08:26)
[2017-09-06] MEDS: METOPROLOL SUCCINATE XL 25 MG TAB PO SCH ×2 (08:26→20:36)
[2017-09-06] MEDS: UMECLIDINIUM BROMIDE INH SCH (08:50)
[2017-09-06] MEDS: BUDESONIDE/FORMOTEROL 160/4.5 60 PUFF/6 GM INH INH SCH ×2 (08:51→20:40)
[2017-09-06] MEDS: IPRATROPIUM/ALBUTEROL 3 ML VIAL INH SCH ×4 (08:51→20:39)
[2017-09-06] MEDS: NON-FORMULARY MEDICATION 1 EA MIS (Letrozole [Letrozole] 2.5 MG) PO SCH (08:53)
[2017-09-06] MEDS ORDERED: BUDESONIDE/FORMOTEROL 160/4.5 60 PUFF/6 GM INH INH ONE (09:00)
[2017-09-06] MEDS: guaiFENesin ER TAB 600 MG TAB PO SCH ×2 (09:33→20:35)
--- NOTE | 2017-09-06 15:34 | PN ---
SUPERVISING PHYSICIAN: German Marquez MD DATE: 09/06/17 SUBJECTIVE: The patient sitting on the edge of the bed. She has been afebrile. She notes that her breathing is a little bit easier than when she was admitted , but continues to feel short of breath with any exertional effort. She has had no nausea, vomiting, diarrhea or chest pains. OBJECTIVE: VITAL SIGNS: Temperature 98.1. Pulse 83. Blood pressure 150/28. Respirations 17. Saturation 85% on room air and 95% on nasal cannula at 2 liters at rest. I&Os show negative balance of 135 with 440 in, 575 out. Weight 97.8 kg. CHEST: Lungs are much more aerated throughout the all lung smith, but diminished towards the bases with no prominent wheeze, rhonchi or rales noted today. HEART: Regular rate and rhythm. ABDOMEN: Obese, but soft and nontender. Positive bowel sounds. EXTREMITIES: No cyanosis, clubbing or edema. There still continues to be a petechial looking rash on bilateral lower extremities, not significantly changed since admission. NEUROLOGIC: Alert and oriented times three. LABORATORY: White count down to 3,600, hemoglobin 14.1, hematocrit 42.7, platelet count 178,000. Differential does today show a left shift. Chemistries show normal electrolytes with potassium 4.4, persistent carbon dioxide elevation, but it is to 34 compared to 35 on admission. BUN 14, creatinine 0.2, glucose 166, calcium 10.4. MICROBIOLOGY: Group A strep screen was negative. Blood cultures remain negative. Strep culture is pending. RADIOLOGY: Repeat chest x-ray today per radiologic interpretation of two view chest shows slight deterioration of the chest with coarse right infrahilar markings and stranding in the medial left lung base suggesting an early basilar bronchial pneumonia, cardiomegaly with upper limits of normal vascularity. ASSESSMENT: 1. Acute exacerbation of chronic obstructive pulmonary disease with worsening bronchial asthma and concerns for developing bibasilar bronchial pneumonia , community acquired, with the patient showing persistent hypercapnia and low O2 saturations with slow improvement despite treatment with continued parenteral antibiotics to include Rocephin and azithromycin. 2. History of asthma, with maximized medical management, with exacerbation as noted in #1. 3. Hypertension, stable. 4. Hyperlipidemia. 5. History of moderate mitral and tricuspid regurgitation with last echocardiogram noted to be in August 2015 without current report for review. 6. Gastroesophageal reflux disease. 7. Coronary artery disease. 8. History of Crohn's having previously been on chronic steroids, having stopped within the last 30 days. 9. Osteoporosis. 10. Alzheimer's dementia. 11. Obesity as noted with a body mass index of 31.7. PLAN: Given the patient is showing some changes on x-ray concerning for bronchial pneumonia, we will continue with antibiotic coverage with Rocephin and azithromycin parenterally and continue with aggressive pulmonary hygiene. We will continue with DuoNeb treatments q.i.d. and Solu-Medrol for an additional 24 hours with slow taper. We will await sputum cultures to further target antibiotic therapy as appropriate. Her home medications have been resumed. She continues on DVT prophylaxis. We will plan to repeat laboratory studies in the morning including CBC and BMP. Repeat chest x-ray. We will anticipate at least another 24 to 48 hours of aggressive management. Until clinically stable and able to discharge, we will continue to monitor and treat appropriately. #[id number] [facility]
[2017-09-06] MEDS ORDERED: SODIUM CHL 0.9% 50ML MIN-BAG+ 50 ML IVPB ONE ×2 (16:14→19:07)
[2017-09-06] MEDS ORDERED: cefTRIAXone SODIUM 1 GM VIAL ONE ×2 (16:15→19:08)
[2017-09-06] MEDS: PANTOPRAZOLE SODIUM TAB 40 MG PO SCH (16:37)
[2017-09-06] MEDS ORDERED: SODIUM CHLORIDE 0.9% 250ML 250 ML ONE (19:07)
[2017-09-06] MEDS ORDERED: AZITHROMYCIN IV 500 MG VIAL IVPB ONE (19:08)
[2017-09-06] MEDS ORDERED: METOPROLOL SUCCINATE XL 25 MG TAB PO ONE (19:08)
[2017-09-06] MEDS: ESCITALOPRAM 10 MG TAB PO SCH (20:35)
[2017-09-06] MEDS: ENOXAPARIN SODIUM 40 MG/0.4 ML SYG SUBCU SCH (20:36)
[2017-09-06] MEDS: AZITHROMYCIN IV 500 MG in SODIUM CHLORIDE 0.9% 250ML 250 ML IVPB SCH (20:36)
[2017-09-06] MEDS: NON-FORMULARY MEDICATION 1 EA MIS (Memantine Hcl-Donepezil Hcl [Namzaric 28-10 Mg] 1 CAP) PO SCH (20:37)
[2017-09-06] MEDS: SIMVASTATIN 20 MG TAB PO SCH (20:38)
[2017-09-07] MEDS: TEMAZEPAM 15 MG CAP PO PRN (00:32)
[2017-09-07] MEDS: cefTRIAXone SODIUM 1 GM in SODIUM CHL 0.9% 50ML MIN-BAG+ 50 ML IVPB SCH ×2 (06:02→17:41)
[2017-09-07] MEDS: PANTOPRAZOLE SODIUM TAB 40 MG PO SCH (06:02)
[2017-09-07] MEDS: IPRATROPIUM/ALBUTEROL 3 ML VIAL INH SCH ×4 (07:10→20:11)
[2017-09-07] MEDS: BUDESONIDE/FORMOTEROL 160/4.5 60 PUFF/6 GM INH INH SCH ×2 (07:10→20:11)
[2017-09-07] MEDS: UMECLIDINIUM BROMIDE INH SCH (07:11)
--- NOTE | 2017-09-07 07:28 | RAD ---
EXAM: PA and LATERAL CHEST RADIOGRAPHS CLINICAL INDICATION: Pneumonia. COMPARISON: Yesterday's chest radiographs. FINDINGS: Cardiac size and pulmonary vasculature are normal. Increased right basilar consolidation in the hyperexpanded lungs. No pleural effusions. No pleural effusions or pneumothorax. No free peritoneal gas layering under the hemidiaphragms. No suspicious hilar or mediastinal lymphadenopathy. Unchanged multilevel degenerative disease with upper thoracic kyphosis. Bones appear intact. IMPRESSION: Increasing right lower lobe consolidation suspicious for pneumonia since yesterday's chest radiographs. Electronically signed by: Calin Lopez MD 09/07/2017 7:27 AM CDT
[2017-09-07] MEDS: NON-FORMULARY MEDICATION 1 EA MIS (Letrozole [Letrozole] 2.5 MG) PO SCH (08:49)
[2017-09-07] MEDS: SODIUM CHLORIDE 0.9% (FLUSH) 10 ML SYG IV SCH ×2 (08:59→20:31)
[2017-09-07] MEDS: hydroCHLOROthiazide 25 MG TAB PO SCH (09:01)
[2017-09-07] MEDS: guaiFENesin ER TAB 600 MG TAB PO SCH ×2 (09:01→20:32)
[2017-09-07] MEDS: MONTELUKAST 10 MG TAB PO SCH (09:01)
[2017-09-07] MEDS: METOPROLOL TARTRATE 25 MG TAB PO SCH ×2 (09:01→17:41)
[2017-09-07] MEDS ORDERED: methylPREDNISolone SODIUM SUC 40 MG/ML VIAL IV SCH (09:30)
[2017-09-07] MEDS ORDERED: methylPREDNISolone SODIUM SUC 125 MG/2 ML VIAL IV SCH (11:00)
--- NOTE | 2017-09-07 11:24 | PN ---
SUPERVISING PHYSICIAN: German Marquez MD DATE: 09/07/17 SUBJECTIVE: The patient is lying in bed. He has continued complaints of shortness of breath, coughing and generalized weakness. She does feel some better, but only marginally. OBJECTIVE: VITAL SIGNS: Temperature 98.2. Pulse 76. Blood pressure 137/62. Respiratory rate 20. O2 saturation 92% on 2 liters nasal cannula. RESPIRATORY: Expiratory wheezes throughout all lung smith. There are some scattered rhonchi as well. She does only speak in short sentences as she becomes noticeably short of breath. CARDIAC: Regular rate and rhythm. GASTROINTESTINAL: Abdomen is soft, nondistended, nontender. Bowel sounds are positive. EXTREMITIES: No cyanosis, clubbing or edema. NEUROLOGIC: Awake, alert and oriented times three. LABORATORY: WBCs 8.9, hemoglobin 13.3, hematocrit 40.5, neutrophils 92.4%. Sodium 141, potassium 4.1, chloride 100, carbon dioxide 32, BUN 22, creatinine 0.87, glucose 1.45. Preliminary blood culture show no growth after 24 hours. Preliminary blood cultures show no strep after 24 hours. Chest x-ray shows increasing right lower lobe consolidation suspicious for pneumonia since yesterday's chest radiograph. All other labs and films have been reviewed via the EMR. ASSESSMENT: 1. Acute exacerbation of chronic obstructive pulmonary disease with worsening bronchial asthma and concerns for developing bibasilar bronchial pneumonia , community acquired, with the patient showing persistent hypercapnia and low O2 saturations with slow improvement despite treatment and continued parenteral antibiotics to include Rocephin and azithromycin. 2. History of asthma, with maximized medical management, with exacerbation as noted in #1. 3. Hypertension, stable. 4. Hyperlipidemia. 5. History of moderate mitral and tricuspid regurgitation with last echocardiogram noted to be in August 2015 without current report for review. 6. Gastroesophageal reflux disease. 7. Coronary artery disease. 8. History of Crohn's having previously been on chronic steroids. 9. Osteoporosis. 10. Alzheimer's dementia. 11. Obesity as noted with a body mass index of 31.7. PLAN: We will continue present supportive care. I will hold on ordering any labs or films in the morning and watch how the patient responds clinically. Her steroids have been tapered down very slightly as she continues with expiratory wheezing. I have added some Mucinex. We will also do an ambulation study for safety as well as a physical therapy consult. I encouraged her to get up and move around and continue with good pulmonary hygiene. We will continue to monitor the patient closely and follow as needed. Dr. Marquez is the collaborating physician and available for consultation. #[id number] [facility]
[2017-09-07] MEDS: methylPREDNISolone SODIUM SUC 125 MG/2 ML VIAL IV SCH ×2 (14:43→21:51)
[2017-09-07] MEDS ORDERED: SODIUM CHL 0.9% 50ML MIN-BAG+ 50 ML IVPB ONE ×2 (17:32→19:11)
[2017-09-07] MEDS ORDERED: cefTRIAXone SODIUM 1 GM VIAL ONE ×2 (17:32→19:12)
[2017-09-07] MEDS ORDERED: SODIUM CHLORIDE 0.9% 250ML 250 ML ONE (19:11)
[2017-09-07] MEDS ORDERED: AZITHROMYCIN IV 500 MG VIAL IVPB ONE (19:12)
[2017-09-07] MEDS: NON-FORMULARY MEDICATION 1 EA MIS (Memantine Hcl-Donepezil Hcl [Namzaric 28-10 Mg] 1 CAP) PO SCH (20:31)
[2017-09-07] MEDS: ESCITALOPRAM 10 MG TAB PO SCH (20:31)
[2017-09-07] MEDS: AZITHROMYCIN IV 500 MG in SODIUM CHLORIDE 0.9% 250ML 250 ML IVPB SCH (20:31)
[2017-09-07] MEDS: ENOXAPARIN SODIUM 40 MG/0.4 ML SYG SUBCU SCH (20:32)
[2017-09-07] MEDS: SIMVASTATIN 20 MG TAB PO SCH (20:32)
[2017-09-08] MEDS: methylPREDNISolone SODIUM SUC 125 MG/2 ML VIAL IV SCH ×2 (06:07→17:44)
[2017-09-08] MEDS: cefTRIAXone SODIUM 1 GM in SODIUM CHL 0.9% 50ML MIN-BAG+ 50 ML IVPB SCH ×2 (06:08→17:48)
[2017-09-08] MEDS: PANTOPRAZOLE SODIUM TAB 40 MG PO SCH (06:08)
[2017-09-08] MEDS: METOPROLOL TARTRATE 25 MG TAB PO SCH ×2 (06:31→17:30)
[2017-09-08] MEDS: IPRATROPIUM/ALBUTEROL 3 ML VIAL INH SCH ×4 (07:13→20:38)
[2017-09-08] MEDS: BUDESONIDE/FORMOTEROL 160/4.5 60 PUFF/6 GM INH INH SCH ×2 (07:13→20:38)
[2017-09-08] MEDS: UMECLIDINIUM BROMIDE INH SCH (07:14)
[2017-09-08] MEDS: MONTELUKAST 10 MG TAB PO SCH (08:33)
[2017-09-08] MEDS: hydroCHLOROthiazide 25 MG TAB PO SCH (08:33)
[2017-09-08] MEDS: guaiFENesin ER TAB 600 MG TAB PO SCH ×2 (08:33→21:02)
[2017-09-08] MEDS: SODIUM CHLORIDE 0.9% (FLUSH) 10 ML SYG IV SCH ×2 (08:42→21:02)
[2017-09-08] MEDS: NON-FORMULARY MEDICATION 1 EA MIS (Letrozole [Letrozole] 2.5 MG) PO SCH (09:29)
[2017-09-08] MEDS ORDERED: BENZONATATE PERLES 100 MG CAP PO PRN (10:54)
[2017-09-08] MEDS ORDERED: methylPREDNISolone SODIUM SUC 125 MG/2 ML VIAL IV ONE (13:00)
--- NOTE | 2017-09-08 13:46 | PN ---
SUPERVISING PHYSICIAN: German Marquez MD DATE: 09/08/17 SUBJECTIVE: The patient is sitting up on the side of her bed eating her lunch. She continues complaints of shortness of breath and weakness, but feels like it is improved since yesterday. She said she does not feel as "fuzzy headed." She is having a difficult time sleeping at night and does take Ambien at home. Otherwise, no complaints of chest pain, nausea, vomiting, diarrhea or constipation. OBJECTIVE: VITAL SIGNS: Afebrile. Heart rate 64. Blood pressure 167/81. Respiratory rate 24. O2 saturation 94% on 2 liters nasal cannula. RESPIRATORY: Expiratory wheezes noted throughout all lung smith, but no rhonchi or rales. Lung sounds are improved since yesterday. CARDIAC: Regular rate and rhythm. GASTROINTESTINAL: Abdomen is soft, nondistended, nontender. Bowel sounds are positive. EXTREMITIES: No cyanosis, clubbing or edema. NEUROLOGIC: Awake, alert and oriented times three. LABORATORY: There are no labs or films to report at this time. ASSESSMENT: 1. Acute exacerbation of chronic obstructive pulmonary disease with worsening bronchial asthma and concerns for developing bibasilar bronchial pneumonia , community acquired, with the patient showing persistent hypercapnia and low O2 saturations with slow improvement despite treatment and continued parenteral antibiotics to include Rocephin and azithromycin. 2. History of asthma, with maximized medical management, with exacerbation as noted in #1. 3. Hypertension, stable. 4. Hyperlipidemia. 5. History of moderate mitral and tricuspid regurgitation with last echocardiogram noted to be in August 2015 without current report for review. 6. Gastroesophageal reflux disease. 7. Coronary artery disease. 8. History of Crohn's having previously been on chronic steroids. 9. Osteoporosis. 10. Alzheimer's dementia. 11. Obesity as noted with a body mass index of 31.7. PLAN: We will continue present supportive care. I have encouraged good pulmonary hygiene. Her lung sounds are improved today, but she continues to have quite a bit of expiratory wheezing, so I will continue her IV steroids, taper them off tomorrow and hopefully we can change to p.o. steroids. She may need to be on a very low dose of chronic steroids after discharge. I have given her Tessalon Perles for her cough. I started her Ambien as needed for sleep. We will repeat her labs and chest x-ray tomorrow. We will hopefully plan for discharge in the next one to two days. Dr. Marquez is the collaborating physician and available for consultation. #[id number] [facility]
[2017-09-08] MEDS ORDERED: SODIUM CHL 0.9% 50ML MIN-BAG+ 50 ML IVPB ONE (16:58)
[2017-09-08] MEDS ORDERED: cefTRIAXone SODIUM 1 GM VIAL ONE (16:58)
[2017-09-08] MEDS: IV SET AND CAP CHANGE INJ INJ SCH (18:35)
[2017-09-08] MEDS: ENOXAPARIN SODIUM 40 MG/0.4 ML SYG SUBCU SCH (21:01)
[2017-09-08] MEDS: NON-FORMULARY MEDICATION 1 EA MIS (Memantine Hcl-Donepezil Hcl [Namzaric 28-10 Mg] 1 CAP) PO SCH (21:01)
[2017-09-08] MEDS: ESCITALOPRAM 10 MG TAB PO SCH (21:01)
[2017-09-08] MEDS: AZITHROMYCIN 250 MG TAB PO SCH (21:02)
[2017-09-08] MEDS: SIMVASTATIN 20 MG TAB PO SCH (21:03)
[2017-09-09] MEDS: methylPREDNISolone SODIUM SUC 125 MG/2 ML VIAL IV SCH ×2 (00:14→05:37)
[2017-09-09] MEDS: ZOLPIDEM TARTRATE 5 MG TAB PO PRN ×2 (00:14→22:26)
[2017-09-09] MEDS ORDERED: SODIUM CHL 0.9% 50ML MIN-BAG+ 50 ML IVPB ONE ×2 (05:24→17:56)
[2017-09-09] MEDS ORDERED: cefTRIAXone SODIUM 1 GM VIAL ONE ×2 (05:25→17:57)
[2017-09-09] MEDS: cefTRIAXone SODIUM 1 GM in SODIUM CHL 0.9% 50ML MIN-BAG+ 50 ML IVPB SCH ×2 (05:40→18:02)
[2017-09-09] MEDS: PANTOPRAZOLE SODIUM TAB 40 MG PO SCH (05:45)
--- NOTE | 2017-09-09 06:53 | RAD ---
EXAM: PA and LATERAL CHEST RADIOGRAPHS CLINICAL INDICATION: Pneumonia. COMPARISON: Chest radiographs of September 07, 2017. FINDINGS: Improving right basilar consolidation. Small bilateral pleural effusions. Suspect COPD with biapical emphysematous damage. No pneumothorax. IMPRESSION: Improving chest radiograph. Electronically signed by: Calin Lopez MD 09/09/2017 6:52 AM CDT
[2017-09-09] MEDS: METOPROLOL TARTRATE 25 MG TAB PO SCH (07:45)
[2017-09-09] MEDS: IPRATROPIUM/ALBUTEROL 3 ML VIAL INH SCH ×4 (08:37→20:32)
[2017-09-09] MEDS: UMECLIDINIUM BROMIDE INH SCH (08:38)
[2017-09-09] MEDS: BUDESONIDE/FORMOTEROL 160/4.5 60 PUFF/6 GM INH INH SCH ×2 (08:38→20:40)
[2017-09-09] MEDS: NON-FORMULARY MEDICATION 1 EA MIS (Letrozole [Letrozole] 2.5 MG) PO SCH (08:58)
[2017-09-09] MEDS: hydroCHLOROthiazide 25 MG TAB PO SCH (08:58)
[2017-09-09] MEDS: MONTELUKAST 10 MG TAB PO SCH (08:59)
[2017-09-09] MEDS: guaiFENesin ER TAB 600 MG TAB PO SCH ×2 (08:59→21:01)
[2017-09-09] MEDS: SODIUM CHLORIDE 0.9% (FLUSH) 10 ML SYG IV SCH (08:59)
[2017-09-09] MEDS ORDERED: METOPROLOL TARTRATE 25 MG TAB PO ONE (09:27)
[2017-09-09] MEDS: predniSONE 20 MG TAB PO SCH (14:34)
--- NOTE | 2017-09-09 15:12 | PN ---
DATE: 09/09/17 SUPERVISING PHYSICIAN: German Marquez M.D. SUBJECTIVE: The patient is sleeping in her hospital bed. She awakens easily. She has no complaints of nausea, vomiting, diarrhea or chest pain. Complains of some shortness of breath but again she has improved greatly since yesterday. She has ambulated several times in the hallway but her shortness of breath is most prominent when she is getting up out of bed. OBJECTIVE: VITAL SIGNS: Temperature 98.3, heart rate 67, blood pressure 175/80 , respiratory rate 22, O2 sat is 93% on 2 liters nasal cannula. RESPIRATORY: Diminished breath sounds throughout but no wheezing noted. CARDIAC: Regular rate and rhythm. GASTROINTESTINAL: Abdomen is soft, nondistended, non-tender. Bowel sounds are positive. NEUROLOGIC: She is awake, alert and oriented times three. LABORATORY: Sodium 140, potassium 3.8, chloride 100, carbon dioxide 32, BUN 25 , creatinine 0.72, glucose 154. WBCs 5.3, hemoglobin 13.1, hematocrit 40.1, platelets 163, neutrophils 91.3. Preliminary blood cultures show no growth after 3 days. RADIOLOGY: Chest x-ray shows improving chest radiograph. All other labs and films have been reviewed via the EMR. ASSESSMENT: 1. Acute exacerbation of chronic obstructive pulmonary disease with worsening bronchial asthma and concerns for developing bibasilar bronchial pneumonia , community acquired, with the patient showing persistent hypercapnia and low O2 saturations with slow improvement despite treatment and continued parenteral antibiotics to include Rocephin and azithromycin. 2. History of asthma, with maximized medical management, with exacerbation as noted in #1. 3. Hypertension, stable. 4. Hyperlipidemia. 5. History of moderate mitral and tricuspid regurgitation with last echocardiogram noted to be in August 2015 without current report for review. 6. Gastroesophageal reflux disease. 7. Coronary artery disease. 8. History of Crohn's having previously been on chronic steroids. 9. Osteoporosis. 10. Alzheimer's dementia. 11. Obesity as noted with a body mass index of 31.7. PLAN: We will continue present supportive care. Will continue to encourage good pulmonary hygiene. Her lung sounds continue to improve daily. There is no wheezing today, so I will change her to p.o. steroids. Encourage walking in the hallways. I have also increased her metoprolol due to her blood pressure being somewhat high. She will now get 50 mg of metoprolol tartrate b.i.d. I will also do some basic lab in the morning and hopefully she can be discharged tomorrow on antibiotics and a steroid taper. Dr. Marquez is the collaborating physician available for consultation. #[id number] [facility]
[2017-09-09] MEDS: METOPROLOL TARTRATE 50 MG TAB PO SCH (18:10)
[2017-09-09] MEDS: ESCITALOPRAM 10 MG TAB PO SCH (21:00)
[2017-09-09] MEDS: ENOXAPARIN SODIUM 40 MG/0.4 ML SYG SUBCU SCH (21:00)
[2017-09-09] MEDS: CEFDINIR 300 MG CAP PO SCH (21:01)
[2017-09-09] MEDS: AZITHROMYCIN 250 MG TAB PO SCH (21:01)
[2017-09-09] MEDS: SIMVASTATIN 20 MG TAB PO SCH (21:01)
[2017-09-09] MEDS: NYSTATIN SUSPENSION 5 ML UD MT SCH (21:01)
[2017-09-09] MEDS: NON-FORMULARY MEDICATION 1 EA MIS (Memantine Hcl-Donepezil Hcl [Namzaric 28-10 Mg] 1 CAP) PO SCH (21:04)
[2017-09-10] MEDS: PANTOPRAZOLE SODIUM TAB 40 MG PO SCH (06:11)
[2017-09-10] MEDS: BUDESONIDE/FORMOTEROL 160/4.5 60 PUFF/6 GM INH INH SCH (08:14)
[2017-09-10] MEDS: IPRATROPIUM/ALBUTEROL 3 ML VIAL INH SCH ×2 (08:14→12:33)
[2017-09-10] MEDS: UMECLIDINIUM BROMIDE INH SCH (08:15)
[2017-09-10] MEDS: NYSTATIN SUSPENSION 5 ML UD MT SCH (09:09)
[2017-09-10] MEDS: predniSONE 20 MG TAB PO SCH (09:10)
[2017-09-10] MEDS: CEFDINIR 300 MG CAP PO SCH (09:10)
[2017-09-10] MEDS: hydroCHLOROthiazide 25 MG TAB PO SCH (09:10)
[2017-09-10] MEDS: METOPROLOL TARTRATE 50 MG TAB PO SCH (09:10)
[2017-09-10] MEDS: guaiFENesin ER TAB 600 MG TAB PO SCH (09:10)
[2017-09-10] MEDS: NON-FORMULARY MEDICATION 1 EA MIS (Letrozole [Letrozole] 2.5 MG) PO SCH (09:10)
[2017-09-10] MEDS: MONTELUKAST 10 MG TAB PO SCH (09:11)
[2017-09-10 10:13] VITALS: BP 156/82; TEMP 98.6
[2017-09-10 14:17] VITALS: O2SAT 96
--- NOTE | 2017-09-10 19:57 | DS ---
SUPERVISING PHYSICIAN: Abebe Fam M.D. DISCHARGE DIAGNOSIS: 1. Acute exacerbation of chronic obstructive pulmonary disease with worsening bronchial asthma and concerns for developing bibasilar bronchial pneumonia , community acquired, with the patient showing persistent hypercapnia and low O2 saturations. The patient was treated with Rocephin, azithromycin and IV steroids. 2. History of asthma, with maximized medical management, with exacerbation as noted in #1. 3. Hypertension. 4. Hyperlipidemia. 5. History of moderate mitral and tricuspid regurgitation with last echocardiogram noted in August 2015 without current report for review. 6. Gastroesophageal reflux disease. 7. Coronary artery disease. 8. Crohn's disease, previously she had been on chronic steroids. 9. Osteoporosis. 10. Alzheimer's dementia. 11. Obesity as noted with a body mass index of 31.7. HISTORY OF PRESENT ILLNESS: This is a 77 year-old female patient that had some ongoing shortness of breath that had worsened over 5 days prior to her admission to the hospital. She was seen by Dr. Mclain in the clinic on the day of admission. She has a history of asthma and chronic obstructive pulmonary disease. The Tuesday prior to admission she started having some wheezing that progressively worsened. During her appointment with Dr. Mclain it was noted she was satting in the mid 80s on room air and she had significant exertional dyspnea. She is on medical therapy for treatment of her underlying asthma and had been utilizing her nebulizer treatments with no significant improvement. She was directly admitted to the Medical/Surgical floor from Dr. Mclain' office. HOSPITAL COURSE: The patient was placed on azithromycin and Rocephin. She was also treated with IV steroids and aggressive pulmonary hygiene. Although she improved daily, her progress was very slow and required a very slow titration of her IV steroids. Her WBC remained stable for the most part during her stay as well as her hemoglobin and hematocrit at 14.2 and 42.8. Neutrophils were slightly elevated up to 92.4%. Initially her BNP was 517. Electrolytes were basically within normal limits with the exception of her carbon dioxide was slightly high at 34 and her BUN was 25. Initial chest x-ray showed a left lower lobe pneumonia that persisted. Yesterday, her chest x-ray showed an improving chest radiograph. The patient's blood pressure had been as high as 180/89 and her metoprolol was increased from 25 mg b.i.d. to 50 mg b.i.d. She has tolerated that well and her blood pressure today is 156/82. She has ambulated in the hallways and will be discharged home today. DISCHARGE PLAN: The patient will be discharged home in stable condition. She will have [facility]. She has a followup appointment with Dr. Mclain on the at 3:45 PM. She will be discharged on an oral prednisone taper as well as a week of Cefdinir antibiotics. I have also sent her home on Mucinex. She is to continue her present medications, including her asthma medications and use her nebulizers as previously ordered. She is to increase her activity as tolerated. At some point in the recent past, she had been on chronic steroids for Crohn's disease and had recently been taken off of the daily dosing, and I am not quite sure when those chronic steroids were discontinued. She will also be sent home on an increased dosage of metoprolol and is encouraged to monitor her blood pressures and pulse rate closely. Otherwise she is to call Dr. Mclain' office or return to the hospital for any further problems or complications. DISCHARGE MEDICATIONS: 1. Simvastatin. 2. Calcium carbonate. 3. Vitamin D. 4. Symbicort. 5. Nasonex. 6. Singulair. 7. Lexapro. 8. Letrozole. 9. Hydrochlorothiazide. 10. Ferrous gluconate. 11. Cyanocobalamin. 12. Tramadol Acetaminophen. 13. Magnesium oxide. 14. Levsin. 15. Zolpidem. 16. Zofran. 17. Namzaric. 18. Incruse ellipta. 19. Cefdinir. 20. Guaifenesin. 21. Nystatin. 22. Prednisone taper. 23. Metoprolol. Dr. Fam is the collaborating physician available for consultation. #[id number] [facility] SERVICESIsabelle
== END 2017-09-10 13:50 | disposition home health service (06) | DRG 190 ==
LOC: MS 17:35
PROVIDERS: ADMIT Nurse Practitioner Family; ATTEND Nurse Practitioner Acute Care
DX: J44.1 Chronic obstructive pulmonary disease with (acute) exacerbation (principal); J18.9 Pneumonia, unspecified organism; K50.90 Crohn's disease, unspecified, without complications; J45.901 Unspecified asthma with (acute) exacerbation; E78.5 Hyperlipidemia, unspecified; I08.1 Rheumatic disorders of both mitral and tricuspid valves; K21.9 Gastro-esophageal reflux disease without esophagitis; I25.10 Atherosclerotic heart disease of native coronary artery without angina pectoris; M81.0 Age-related osteoporosis without current pathological fracture; G30.9 Alzheimer's disease, unspecified; F02.80 Dementia in other diseases classified elsewhere, unspecified severity, without behavioral disturbance, psychotic disturbance, mood disturbance, and anxiety; E66.9 Obesity, unspecified; R06.89 Other abnormalities of breathing; J44.0 Chronic obstructive pulmonary disease with (acute) lower respiratory infection; D50.9 Iron deficiency anemia, unspecified; Z77.22 Contact with and (suspected) exposure to environmental tobacco smoke (acute) (chronic); I11.0 Hypertensive heart disease with heart failure; I50.9 Heart failure, unspecified; Z87.11 Personal history of peptic ulcer disease; Z85.3 Personal history of malignant neoplasm of breast; Z68.31 Body mass index [BMI] 31.0-31.9, adult; I25.2 Old myocardial infarction

== ENCOUNTER → 2017-09-21 | Outpatient (CLI) | payer MEDICARE, OTHER | LOC: YCHH 13:13 | PROVIDERS: ATTEND Family Medicine | DX: D64.9 Anemia, unspecified (principal); I10 Essential (primary) hypertension ==

== ENCOUNTER → 2017-10-06 | Outpatient (CLI) | payer MEDICARE, OTHER | LOC: GMAJS 16:14 | PROVIDERS: ATTEND Physician Assistant | DX: I95.9 Hypotension, unspecified (principal); R06.02 Shortness of breath ==

== ENCOUNTER 2017-10-28 12:46 | Inpatient (IN) | payer MEDICARE, OTHER ==
[2017-10-28] MEDS ORDERED: LEVALBUTEROL NEBS 1.25 MG/3 ML VIAL NEB ONE ×2 (13:11→13:46)
[2017-10-28] MEDS ORDERED: methylPREDNISolone SODIUM SUC 125 MG/2 ML VIAL IV ONE (13:11)
[2017-10-28] MEDS ORDERED: IPRATROPIUM BROMIDE NEBS 0.5 MG/2.5 ML VIAL NEB ONE ×2 (13:11→15:51)
--- NOTE | 2017-10-28 13:19 | ED.PDOC ---
History of Present Illness - General Chief Complaint: Respiratory Problem Stated Complaint: shortness of breath Time Seen by Provider: 10/28/17 13:10 Source: patient, family Exam Limitations: no limitations - History of Present Illness Initial Comments: patient comes in today with several day history of worsening shortness of breath , wheezing, increased worker breathing. Patient has chronic COPD. Her daughter states that she has been using Xopenex every several hours with only minimal improvement. However, she does not like how breathing treatments make her feel and she has been refusing nebulizers. Patient denies any fever, chills , cough, congestion, or sore throat. She has not felt ill recently. She has no swelling or chest pain. She's had no nausea or vomiting. She is on O2 24 hours a day and has never smoked but her and co-workers all smoked for her entire life. She has no CAD. Timing/Duration: days - 2-3 Severity: severe Activities at Onset: none Possible Cause: occasional episodes Improving Factors: medication Worsening Factors: movement Associated Symptoms: denies symptoms Allergies/Adverse Reactions: Allergies NSAIDs Allergy (Verified 10/28/17 13:10) Home Medications: Ambulatory Orders Calcium Carbonate 600 mg PO DAILY 10/21/13 Simvastatin [Zocor] 20 mg PO HS 10/21/13 Budesonide-Formoterol Fumarate [Symbicort 160-4.5 Mcg/Act] 2 aer IN BID Cholecalciferol [Vitamin D] 1,000 unit PO DAILY 04/13/17 Cyanocobalamin Inj [Vitamin B-12 Inj] 1,000 mcg IM MONTHLY 04/13/17 Denosumab [Prolia] 60 mg SC PRN 04/13/17 Escitalopram Oxalate [Lexapro] 20 mg PO BEDTIME 04/13/17 Ferrous Gluconate [Fergon] 27 mg PO DAILY 04/13/17 Hydrochlorothiazide 25 mg PO DAILY 04/13/17 Letrozole 2.5 mg PO DAILY 04/13/17 Mometasone Furoate Nasal [place] [Nasonex Nasal [place]] 50 mcg NA BID 04/13/17 Montelukast [Singulair] 10 mg PO DAILY 04/13/17 Tramadol-Acetaminophen [Tramadol Hydrochloride/AC 37.5-325 mg] 1 tab PO Q4H PRN 04/13/17 Cholecalciferol [Vitamin D-3] 2,000 unit PO DAILY 09/05/17 Hyoscyamine Sulfate [Levsin] 0.125 mg PO DAILY PRN 09/05/17 Magnesium Oxide 400 mg PO BID 09/05/17 Memantine HCl-Donepezil HCl [Namzaric 28-10 mg] 1 cap PO BEDTIME 09/05/17 Ondansetron [Zofran Odt] 4 mg PO Q8H PRN 09/05/17 Umeclidinium [place] [Incruse Ellipta] 1 inh INH DAILY 09/05/17 Zolpidem Tartrate [Ambien] 1 - 2 tablet PO BEDTIME PRN 09/05/17 Cefdinir [Omnicef] 300 mg PO BID #14 cap 09/10/17 Metoprolol Tartrate [Lopressor] 50 mg PO BIDFD #60 tab 09/10/17 Nystatin Suspension 10 ml MT QID #28 ud 09/10/17 Prednisone See Taper PO DAILY #30 mariia 09/10/17 Zolpidem Tartrate [Ambien] 5 mg PO BEDTIME PRN #30 tab 09/10/17 guaiFENesin ER TAB [Mucinex Tab] 1,200 mg PO BID #100 tab 09/10/17 Review of Systems - Review of Systems Constitutional: States: no symptoms reported. Denies: chills, fever EENTM: Denies: eye pain, ear pain, nose pain, throat pain Respiratory: States: short of breath, wheezing. Denies: cough Cardiology: Denies: chest pain, edema, palpitations Gastrointestinal/Abdominal: Denies: abdominal pain, nausea, vomiting Genitourinary: Denies: no symptoms reported Past Medical History (General) - Patient Medical History Hx Seizures: No Hx Stroke: No Hx Dementia: No Hx Asthma: Yes Hx of COPD: Yes Hx Cardiac Disorders: - A-fib Hx Congestive Heart Failure: Yes Hx Pacemaker: No Hx Hypertension: Yes Hx Thyroid Disease: Yes Hx Diabetes: No Hx Gastroesophageal Reflux: Yes Hx Renal Disease: No Hx Cancer: Yes Hx of HIV: No Hx Hepatitis C: No Hx MRSA: No Surgical History: cholecystectomy, tonsillectomy, Hysterectomy, other - Vaccination History Hx Tetanus, Diphtheria Vaccination: No Hx Influenza Vaccination: Yes Hx Pneumococcal Vaccination: Yes - 2015 - Social History Hx Tobacco Use: No Hx Chewing Tobacco Use: No Hx Alcohol Use: No Hx Substance Use: No Hx Substance Use Treatment: No Hx Depression: Yes Hx Physical Abuse: No Hx Emotional Abuse: No Hx Suspected Abuse: No - Female History Patient is a Female of Child Bearing Age (10 -59 yrs old): No Patient : No Family Medical History - Family History Mother Family History: Unknown Living Status: Hx Family Asthma: Yes - parents Hx Family Congestive Heart Failure: Yes Hx Family Hypertension: Yes Hx Family Stroke: Yes - Mother Age of Onset (years of age): 88 Hx Cardiac Disease: Yes - daddy [place] Age of Onset (years of age): 66 Hx Family Diabetes: No Hx Family Cancer: Yes - breast-mom Physical Exam - Physical Exam General Appearance: Obvious distress Eyes, Ears, Nose, Throat Exam: PERRL/EOMI, normal ENT inspection, TMs normal, pharynx normal Neck: non-tender, full range of motion, supple, normal inspection, carotid bruit Respiratory: other - breath sounds in all lung smith with wheezes and no crackles inspiratory effort Cardiovascular/Chest: normal peripheral pulses, regular rate, rhythm, no edema, no gallop, no JVD, no murmur Peripheral Pulses: radial,right: 2+ Gastrointestinal/Abdominal: normal bowel sounds, non tender, soft, no organomegaly, no pulsatile mass Skin Exam: normal color Progress - Progress Progress: 10/28/17 14:18 10/28/17 13:15 EKG STAT 10/28/17 13:24 B-TYPE NATRIURETIC PEPTIDE/BNP Stat CARDIAC ENZYME GROUP Stat COMPLETE METABOLIC PROFILE Stat Laboratory Results WBC 6.6 K/mm3 (4.8-10.8) 10/28/17 13:24 RBC 4.61 M/mm3 (4.20-5.40) 10/28/17 13:24 Hgb 13.3 gm/dL (12.0-16.0) 10/28/17 13:24 Hct 40.3 % (36.0-47.0) 10/28/17 13:24 MCV 87.3 fl (81.0-99.0) 10/28/17 13:24 MCH 28.8 pg (27.0-31.0) 10/28/17 13:24 MCHC 33.0 g/dL (33.0-37.0) 10/28/17 13:24 RDW 15.1 % (11.5-14.5) H 10/28/17 13:24 Plt Count 192 K/mm3 (130-400) 10/28/17 13:24 MPV 8.8 fl (7.40-10.4) 10/28/17 13:24 Absolute Neuts (auto) 5.00 K/uL (1.8-6.8) 10/28/17 13:24 Absolute Lymphs (auto) 0.60 K/uL (1.0-3.4) L 10/28/17 13:24 Absolute Monos (auto) 0.40 K/uL (0.2-0.8) 10/28/17 13:24 Absolute Eos (auto) 0.60 K/uL (0.0-0.4) H 10/28/17 13:24 Absolute Basos (auto) 0.00 K/uL (0.0-0.1) 10/28/17 13:24 Neutrophils % 75.5 % (42.0-78.0) 10/28/17 13:24 Lymphocytes % 9.5 % (20.0-50.0) L 10/28/17 13:24 Monocytes % 5.8 % (2.0-9.0) 10/28/17 13:24 Eosinophils % 8.6 % (1.0-5.0) H 10/28/17 13:24 Basophils % 0.6 % (0.0-2.0) 10/28/17 13:24 Sodium 141 mmol/L (135-145) 10/28/17 13:24 Potassium 4.0 mmol/L (3.6-5.0) 10/28/17 13:24 Chloride 101 mmol/L (101-111) 10/28/17 13:24 Carbon Dioxide 35 mmol/L (21-31) H 10/28/17 13:24 Anion Gap 9.0 (12-18) L 10/28/17 13:24 BUN 18 mg/dL (7-18) 10/28/17 13:24 Creatinine 1.15 mg/dL (0.6-1.3) 10/28/17 13:24 BUN/Creatinine Ratio 15.7 (10-20) 10/28/17 13:24 Random Glucose 102 mg/dL (70-105) 10/28/17 13:24 Serum Osmolality 283.4 mOsm/L (275-295) 10/28/17 13:24 Calcium 10.1 mg/dL (8.4-10.2) 10/28/17 13:24 Total Bilirubin 0.6 mg/dL (0.2-1.0) 10/28/17 13:24 AST 17 IU/L (10-42) 10/28/17 13:24 ALT 11 IU/L (10-60) 10/28/17 13:24 Alkaline Phosphatase 87 IU/L (42-121) 10/28/17 13:24 Creatine Kinase 39 IU/L (26-140) 10/28/17 13:24 CK-MB (CK-2) 1.7 ng/mL (0.0-4.4) 10/28/17 13:24 Troponin I 0.02 ng/mL (0.01-0.05) 10/28/17 13:24 B-Natriuretic Peptide 468.0 pg/ml (0-100) H* 10/28/17 13:24 Serum Total Protein 6.4 gm/dL (6.4-8.2) 10/28/17 13:24 Albumin 3.6 g/dl (3.2-5.5) 10/28/17 13:24 Globulin 2.8 gm/dL (2.3-3.5) 10/28/17 13:24 Albumin/Globulin Ratio 1.3 (1.1-1.9) 10/28/17 13:24 10/28/17 14:18 discussed with patient and her daughter that she would benefit from admission for COPD exacerbation. At that time they can also try to arrange for her to have Xopenex at home and she does agree to take it if they can get that form of treatment for her nebulizer. At this time though she still has wheezes diffusely throughout although she is improved is not sufficient enough to allow discharge home. We've called agricultural consultant PA in [place] and he agrees to admission - EKG/XRAY/CT EKG: Sinus, Tachy XRAY: chest Xray Comments: no acute congestion or infiltrate Departure - Departure Clinical Impression: COPD with acute exacerbation Disposition: Admit Patient Condition: Fair Departure Forms: ED Discharge - Pt. Copy, Patient Portal Self Enrollment Referrals: Mclain,Socrates K, MD [Primary Care Provider] - 1-2 Weeks Home Medications: Ambulatory Orders Calcium Carbonate 600 mg PO DAILY 10/21/13 Simvastatin [Zocor] 20 mg PO HS 10/21/13 Budesonide-Formoterol Fumarate [Symbicort 160-4.5 Mcg/Act] 2 aer IN BID Cholecalciferol [Vitamin D] 1,000 unit PO DAILY 04/13/17 Cyanocobalamin Inj [Vitamin B-12 Inj] 1,000 mcg IM MONTHLY 04/13/17 Denosumab [Prolia] 60 mg SC PRN 04/13/17 Escitalopram Oxalate [Lexapro] 20 mg PO BEDTIME 04/13/17 Ferrous Gluconate [Fergon] 27 mg PO DAILY 04/13/17 Hydrochlorothiazide 25 mg PO DAILY 04/13/17 Letrozole 2.5 mg PO DAILY 04/13/17 Mometasone Furoate Nasal [place] [Nasonex Nasal [place]] 50 mcg NA BID 04/13/17 Montelukast [Singulair] 10 mg PO DAILY 04/13/17 Tramadol-Acetaminophen [Tramadol Hydrochloride/AC 37.5-325 mg] 1 tab PO Q4H PRN 04/13/17 Cholecalciferol [Vitamin D-3] 2,000 unit PO DAILY 09/05/17 Hyoscyamine Sulfate [Levsin] 0.125 mg PO DAILY PRN 09/05/17 Magnesium Oxide 400 mg PO BID 09/05/17 Memantine HCl-Donepezil HCl [Namzaric 28-10 mg] 1 cap PO BEDTIME 09/05/17 Ondansetron [Zofran Odt] 4 mg PO Q8H PRN 09/05/17 Umeclidinium [place] [Incruse Ellipta] 1 inh INH DAILY 09/05/17 Zolpidem Tartrate [Ambien] 1 - 2 tablet PO BEDTIME PRN 09/05/17 Cefdinir [Omnicef] 300 mg PO BID #14 cap 09/10/17 Metoprolol Tartrate [Lopressor] 50 mg PO BIDFD #60 tab 09/10/17 Nystatin Suspension 10 ml MT QID #28 ud 09/10/17 Prednisone See Taper PO DAILY #30 mariia 09/10/17 Zolpidem Tartrate [Ambien] 5 mg PO BEDTIME PRN #30 tab 09/10/17 guaiFENesin ER TAB [Mucinex Tab] 1,200 mg PO BID #100 tab 09/10/17
--- NOTE | 2017-10-28 13:34 | RAD ---
EXAM DESCRIPTION: Chest,1 View CLINICAL HISTORY: SOB/COPD COMPARISON: September 09, 2017 IMPRESSION: Single AP portable upright view of the chest shows enlargement of the cardiac silhouette without pulmonary vascular congestion. Lungs are hyperinflated without acute infiltrate or consolidation. Large retrocardiac hiatal hernia is again seen.. No obvious pleural effusion or pneumothorax is seen. Electronically signed by: Zachary Wright MD 10/28/2017 1:33 PM CDT
--- NOTE | 2017-10-28 14:42 | HP ---
SUPERVISING PHYSICIAN: Socrates Mclain M.D. CHIEF COMPLAINT: Worsening shortness of breath. HISTORY OF PRESENT ILLNESS: Ms. Castillo is a 77 year-old female patient that presented to the Emergency Room today due to significant worsening shortness of breath. She does have a longstanding history of chronic obstructive pulmonary disease with asthma and bronchial pneumonia in the past. Her daughter noted that she had been using her Xopenex treatment every couple of hours with no improvement over the last 24 hours. She notes initially her symptoms started developing this past week and just slowly progressed. She was denying any fevers, cough, congestion or sore throat but was unable to fully speak in a complete sentence initially on admission to the Emergency Department. She is dependent on O2 chronically 27/12. Initially in the Emergency Room she was significant with respirations 26 labored with audible inspiratory and expiratory wheezing. She was given some Solu-Medrol and several breathing treatments which did help somewhat in relieving her symptoms, but she continues to have significant wheezing and shortness of breath with any exertional effort. Given the past history of recent hospitalization in September and her severe respiratory distress currently, the patient now is going to be admitted for continuation of treatment of her acute exacerbation of chronic obstructive pulmonary disease and asthma. Her initial laboratory studies showed she had a normal white count as well as chemistries were all within normal limits except for an elevated CO2 of 35 and a slightly elevated BNP of 468. The patient was stable prior to admission and now will be continued on treatment and further evaluation. PAST MEDICAL HISTORY: 1. Coronary artery disease. 2. Hyperlipidemia. 3. Hypertension. 4. Asthma. 5. Chronic obstructive pulmonary disease. 6. Mild mitral and tricuspid regurgitation with last echocardiogram in August 2015 with those results not currently available. 7. Crohn's disease having been on chronic steroids. 8. Peptic ulcer disease. 9. Osteoporosis. 10. Iron deficiency anemia. 11. History of breast cancer in 2013 with post surgical resection. 12. Gastroesophageal reflux disease. PAST SURGICAL HISTORY: 1. Breast surgery. 2. Appendectomy. 3. Tonsillectomy and adenoidectomy. 4. Tubal ligation. 5. Bladder suspension. 6. Cholecystectomy. 7. Hysterectomy. 8. Thyroidectomy. 9. Bilateral cataract removal. CURRENT MEDICATIONS: Listed but awaiting final verification. Admission showed she was on: 1. Magnesium oxide 400 mg b.i.d. 2. Lamotrigine 25 mg at bedtime. 3. Ranitidine 150 mg daily. 4. Slow-K 8 mg daily. 5. Dexilant 60 mg daily. 6. Symbicort 160/4.5 mg 2 actuators inhaled b.i.d. 7. Vitamin B12 injection 1,000 mcg monthly. 8. Vitamin D3 2,000 units daily. 9. Calcium carbonate 600 mg daily. 10. Fergon 27 mg daily. 11. Lexapro 20 mg at bedtime. 12. Prolia 60 mg every 6 months. 13. Letrozole 2.5 mg daily. 14. Levsin 0.125 mg daily p.r.n. 15. Namzaric 28-10 mg 1 capsule at bedtime. 16. Singulair 10 mg at bedtime. 17. Ambien 5 mg at bedtime. 18. Incruse Ellipta 1 inhaled daily. 19. Tramadol/Acetaminophen 37.5-325 one tablet every 4 hours as needed. 20. Zocor 20 mg at bedtime. ALLERGIES: NSAIDs. FAMILY HISTORY: Father from heart disease. Mother had a history of breast cancer and heart disease. SOCIAL HISTORY: The patient has never smoked. She was exposed to many years of secondary smoke by her . She denies any illicit drug or alcohol use. She lives in [place], [place] and is . REVIEW OF SYSTEMS: CONSTITUTIONAL: Denies any chills or fever. HEENT: Denies any headache, sore throat, nasal congestion or ear aches. RESPIRATORY: As noted in History of Present Illness, severe shortness of breath , wheezing. Unable to fully talk in complete sentences without any cough. CARDIOVASCULAR: Denies any chest pains, edema, palpitations. GASTROINTESTINAL: Denies any abdominal pains, nausea, vomiting or diarrhea. GENITOURINARY: Denies any dysuria, hematuria or other urinary symptoms. NEUROLOGIC: Denies any ataxia, dizziness, headaches or seizures. PHYSICAL EXAMINATION: VITAL SIGNS: Temperature 98.7, pulse 66, blood pressure 121/76, respirations 24 with obvious labored shortness of breath utilizing accessory muscles. Admission weight 100.8 kg. GENERAL: On admission to the Medical/Surgical floor, the patient appears to be in some mild distress. Continued respiratory distress but is able to talk in full sentences, but is utilizing pursed lip breathing. HEENT: Tympanic membranes are clear bilaterally. Oropharynx is pink and moist without any lesions. NECK: Supple, non-tender with full range of motion. No jugular venous distention. CHEST: Breath sounds are significantly decreased throughout with very prominent inspiratory and expiratory wheezing but no obvious rhonchi or rales. CARDIOVASCULAR: Heart was regular rate and rhythm without appreciable murmurs, gallops, or rubs. No appreciable murmurs. GASTROINTESTINAL: Obese but soft, non-tender with bowel sounds present. No rebound tenderness. EXTREMITIES: No clubbing, cyanosis or edema. NEUROLOGIC: She was alert and oriented times three with facial features symmetrical. Extraocular movements are within normal limits. There was no notable nystagmus. Cranial nerves II-XII are grossly intact. LABORATORY: CBC showed a normal white count at 6,600 with hemoglobin 13.3, hematocrit 40.3, platelet count 192,000. Differential showed to be without a left shift. Chemistries showed normal electrolytes with potassium 4.0 but carbon dioxide was elevated at 35, BUN 18, creatinine 1.15, glucose 102, magnesium 2.1. Liver functions all were within normal limits. Troponin was 0.02 with BNP elevated at 468. Urinalysis was pending. RADIOLOGY: Chest x-ray single view per radiology interpretation in the E. R. showed no obvious pleural effusions or pneumothoraxes or consolidative processes or infiltrates. There was note of a large cardiac silhouette but no pulmonary vascular congestion was noted. ASSESSMENT: 1. Acute exacerbation of chronic obstructive pulmonary disease with bronchial asthma having failed to respond to any significant treatments in the outpatient setting and in the Emergency Room with the patient being dependent chronically on O2 and showing some obvious respiratory distress with hypercapnia noted on laboratory studies. 2. History of asthma with multiple exacerbations in the past year. 3. Hypertension. 4. Hyperlipidemia. 5. History of moderate mitral and tricuspid regurgitation with last echocardiogram noted to be in August 2015 with no results currently available at time of admission. There was some elevation of her BNP. 6. Gastroesophageal reflux disease. 7. Coronary artery disease. 8. History of Crohn's disease with a history of being previously on chronic steroids but currently not on any regimen. 9. Osteoporosis. 10. Alzheimer's disease. 11. Obesity with a body mass index of 32.8. 12. Depression. PLAN: The patient is going to be admitted to the Medical/Surgical floor for continuation, treatment and evaluation of her exacerbation of her chronic obstructive pulmonary disease with severe asthma in moderate respiratory distress. She was given breathing treatments initially in the Emergency Department and this will be followed-up with Xopenex as she has a problem with Albuterol at times resulting in paroxysmal tachycardia. Will give her aggressive pulmonary hygiene with p.r.n. Xopenex, b.i.d. Atrovent and scheduled Xopenex every 4 hours. I will go ahead and give her a 2 mg Decadron nebulizer treatment along with 2 grams of magnesium parenterally. She will be started on Guaifenesin and chest percussive therapy as tolerated. Will continue with steroids initially loading dose of 125 mg in the E. R., continue with 80 mg every 6 hours for at least 4 doses. Will go ahead and start her on antibiotic coverage with Rocephin and azithromycin with concerns for possible early pneumonia as a trigger for exacerbation. Will continue all other medications as appropriate once they have been updated and verified. She will be started on DVT prophylaxis as per protocol. Will also start her on some Protonix for GI prophylaxis given the high dose of steroids and past history of gastroesophageal reflux disease. Will anticipate her length of stay to be at least 2 to 3 days with reevaluation of labs and radiographic chest x-rays in the morning. Until clinically stable, continue with current plan until discharge. Until then, will continue to monitor and treat appropriately. #[id number] [facility]
[2017-10-28] MEDS ORDERED: LEVALBUTEROL NEBS 1.25 MG/3 ML VIAL INH PRN (14:48)
[2017-10-28] MEDS ORDERED: DEXAMETHASONE INJ 2 MG, SODIUM CHLORIDE 0.9% NEB 3 ML NEB ONE ×2 (15:52)
[2017-10-28] MEDS ORDERED: LEVALBUTEROL NEBS 1.25 MG/3 ML VIAL NEB PRN (15:52)
[2017-10-28] MEDS ORDERED: LEVALBUTEROL NEBS 1.25 MG/3 ML VIAL INH SCH (16:00)
[2017-10-28] MEDS ORDERED: AZITHROMYCIN IV 500 MG in SODIUM CHLORIDE 0.9% 250ML 250 ML IVPB ONE (16:01)
[2017-10-28] MEDS ORDERED: cefTRIAXone SODIUM 1 GM VIAL ONE (16:11)
[2017-10-28] MEDS ORDERED: SODIUM CHL 0.9% 50ML MIN-BAG+ 50 ML IVPB ONE (16:11)
[2017-10-28] MEDS: cefTRIAXone SODIUM 1 GM in SODIUM CHL 0.9% 50ML MIN-BAG+ 50 ML IVPB SCH (16:14)
[2017-10-28] MEDS: IV SET AND CAP CHANGE INJ INJ SCH (16:19)
[2017-10-28] MEDS ORDERED: MAGNESIUM SULFATE PREMIX 2GM 2 GM in PREMIX BAG 1 BAG IVPB ONE (16:38)
--- NOTE | 2017-10-28 16:42 | PCM.CORE ---
Physician DVT/VTE - Nurse DVT Assessment & Total Each Risk Factor Represents 3 Points: Age over 75 years, Medical PT with Hx of MA, CHF, Severe infection/sepsis Each Risk Factor is 1 Point: Obesity (BMI >25), Serious Lung disease (pnemonia < 1month, COPD, emphysema,etc) DVT Assessment Score: 8 - 5 or more Very High Risk Treatments: Early Ambulation *, Sequential Compression Device Pharmacological: Enoxaparin 40mg SQ Daily
[2017-10-28] MEDS ORDERED: MAGNESIUM SULFATE PREMIX 2GM 50 ML IVPB ONE (16:48)
[2017-10-28] MEDS: ENOXAPARIN SODIUM 40 MG/0.4 ML SYG SUBCU SCH (16:54)
[2017-10-28] MEDS: LEVALBUTEROL NEBS 1.25 MG/3 ML VIAL INH SCH ×3 (17:26→23:45)
[2017-10-28] MEDS ORDERED: SODIUM CHLORIDE 0.9% NEB 3 ML VIAL ONE (17:31)
[2017-10-28] MEDS ORDERED: DEXAMETHASONE INJ 4 MG/ML VIAL ONE (17:31)
[2017-10-28] MEDS ORDERED: AZITHROMYCIN IV 500 MG VIAL IVPB ONE (17:34)
[2017-10-28] MEDS ORDERED: SODIUM CHLORIDE 0.9% 250ML 250 ML ONE (17:35)
[2017-10-28] MEDS ORDERED: ESCITALOPRAM 10 MG TAB ONE (20:07)
[2017-10-28] MEDS ORDERED: methylPREDNISolone SODIUM SUC 125 MG/2 ML VIAL ONE (20:08)
[2017-10-28] MEDS ORDERED: SIMVASTATIN 20 MG TAB ONE (20:08)
[2017-10-28] MEDS: IPRATROPIUM BROMIDE NEBS 0.5 MG/2.5 ML VIAL NEB PRN (20:15)
[2017-10-28] MEDS ORDERED: NON-FORMULARY MEDICATION 1 EA MIS (Escitalopram Oxalate [Lexapro] 20 MG) PO SCH (21:00)
[2017-10-28] MEDS ORDERED: SIMVASTATIN 20 MG PO SCH (21:00)
[2017-10-28] MEDS: NON-FORMULARY MEDICATION 1 EA MIS (Memantine Hcl-Donepezil Hcl [Namzaric 28-10 Mg] 1 CAP) PO SCH (21:13)
[2017-10-28] MEDS: lamoTRIgine 25 MG TAB PO SCH (21:13)
[2017-10-28] MEDS: guaiFENesin ER TAB 600 MG TAB PO SCH (21:14)
[2017-10-28] MEDS: MONTELUKAST 10 MG TAB PO SCH (21:14)
[2017-10-28] MEDS: methylPREDNISolone SODIUM SUC 125 MG/2 ML VIAL IV SCH (21:16)
[2017-10-29] MEDS ORDERED: methylPREDNISolone SODIUM SUC 125 MG/2 ML VIAL ONE (00:33)
[2017-10-29] MEDS: methylPREDNISolone SODIUM SUC 125 MG/2 ML VIAL IV SCH ×6 (01:22→20:21)
[2017-10-29] MEDS: ZOLPIDEM TARTRATE 5 MG TAB PO PRN (01:30)
[2017-10-29] MEDS: LEVALBUTEROL NEBS 1.25 MG/3 ML VIAL INH SCH (04:08)
[2017-10-29] MEDS: PANTOPRAZOLE SODIUM IV 40 MG VIAL IV SCH (06:21)
--- NOTE | 2017-10-29 07:44 | RAD ---
Procedure: XR CHEST 2 VIEWS Exam Date: 10/29/2017 Ordering Provider: Miguel Britt NP Clinical Indication: Pneumonia, shortness of breath, COPD Comparison: 10/28/2017 Findings: Cardiomediastinal silhouette: Cardiomegaly. Pulmonary vasculature : Mild vascular congestion. Aortic calcification. Focal lung consolidation: Lungs are hyperinflated. No focal lung consolidation. Pleural effusion: None Pneumothorax: None Bones and soft tissues: Nonacute Hiatal hernia. Impression: 1. No acute abnormalities in the chest. Electronically signed by: Nico Quiroz MD 10/29/2017 7:43 AM CDT
[2017-10-29] MEDS: UMECLIDINIUM BROMIDE INH SCH (08:25)
[2017-10-29] MEDS: LEVALBUTEROL NEBS 1.25 MG/3 ML VIAL NEB SCH ×4 (08:25→19:57)
[2017-10-29] MEDS: guaiFENesin ER TAB 600 MG TAB PO SCH ×2 (08:57→20:30)
[2017-10-29] MEDS: AZITHROMYCIN 250 MG TAB PO SCH (08:57)
[2017-10-29] MEDS: POTASSIUM CHLORIDE 8 MEQ TAB PO SCH (08:57)
[2017-10-29] MEDS: FERROUS GLUCONATE 325 MG TAB PO SCH (08:57)
[2017-10-29] MEDS: NON-FORMULARY MEDICATION 1 EA MIS (Letrozole [Letrozole] 2.5 MG) PO SCH (11:37)
[2017-10-29] MEDS ORDERED: FUROSEMIDE INJ 20 MG/2 ML VIAL IV ONE (12:41)
[2017-10-29] MEDS ORDERED: POTASSIUM CHLORIDE 20 MEQ TAB PO ONE (12:42)
[2017-10-29] MEDS: ALPRAZolam 0.25 MG TAB PO PRN ×2 (13:29→20:34)
--- NOTE | 2017-10-29 14:13 | PN ---
DATE: 10/29/17 SUPERVISING PHYSICIAN: Socrates Mclain M.D. SUBJECTIVE: The patient continues to have a significant amount of shortness of breath. This seems to be worse when she is anxious. I noticed that when she was sleeping she seemed to be breathing without any difficulty. She has remained afebrile and remains on steroids. OBJECTIVE: VITAL SIGNS: temperature 97.3, pulse 79, blood pressure 147/73, respirations 16, satting 95% on 3.5 nasal cannula at rest. I's and O's show a positive balance of 960 with 1060 in, 100 out. Weight is 101.3. CHEST: Lung sounds throughout are coarse with some expiratory wheezing with an extended expiratory phase and lung sounds are diminished bilaterally towards the bases. HEART: Regular rate and rhythm. ABDOMEN: Obese but soft, non-tender. Positive bowel sounds. EXTREMITIES: No clubbing, cyanosis or edema. NEUROLOGIC: She is alert and oriented times three. LABORATORY: White count today today shows a white count of 5,400, hemoglobin 12.7, hematocrit 38.4, platelet count 165,000. Differential shows a developing left shift. Chemistries show just a mildly low potassium at 3.5, creatinine 1.09, calcium 9.9. MICROBIOLOGY: No microbiology specimens are pending. RADIOLOGY: Per radiology interpretation there was no acute abnormalities in the chest. It was noted that there was some cardiomegaly with mild vascular congestion. ASSESSMENT: 1. Acute exacerbation of chronic obstructive pulmonary disease with bronchial asthma having failed to respond to treatments in the outpatient setting in the Emergency Room with the patient being chronically O2 dependent and with some respiratory distress and hypercapnia on initial admission with slow clinical response with corticosteroids and aggressive bronchial therapy. 2. History of asthma with multiple exacerbations in the past year. 3. Hypertension. 4. Hyperlipidemia. 5. History of moderate mitral and tricuspid regurgitation with last echocardiogram noted to be in August 2015 with no results currently available at time of admission. 6. Gastroesophageal reflux disease. 7. Coronary artery disease. 8. History of Crohn's disease with a history of being previously on chronic steroids but currently not on any regimen. 9. Osteoporosis. 10. Alzheimer's disease. 11. Obesity with a body mass index of 32.8 on admission. 12. Depression and anxiety. PLAN: The patient continues to show some mild distress and wheezing, therefore will continue with aggressive therapy with steroid administration at 80 mg every 6 hours along with chest percussive therapy and aggressive pulmonary hygiene. I noticed again that the patient seems to be much more at ease when she is sleeping with no obvious distress, but more in an anxiety state when awake. I have offered low dose Xanax at this point, but the patient refuses. Given that she continues to have significant slow clinical response, I will go ahead and check an ABG and see if maybe she could possibly benefit from noninvasive ventilatory support via BiPAP. She continues on antibiotics with Rocephin and azithromycin. Given that she has some mild vascular congestion, will put her on a fluid restriction as well as look at maybe giving a low dose Lasix to decrease some of the congestion. Will anticipate at least another 48 hours of hospitalization until clinically stable. Continue to monitor and treat appropriately. [facility][id number] [facility]
[2017-10-29] MEDS: cefTRIAXone SODIUM 1 GM in SODIUM CHL 0.9% 50ML MIN-BAG+ 50 ML IVPB SCH (16:50)
[2017-10-29] MEDS ORDERED: SODIUM CHL 0.9% 50ML MIN-BAG+ 50 ML IVPB ONE (17:12)
[2017-10-29] MEDS ORDERED: cefTRIAXone SODIUM 1 GM VIAL ONE (17:13)
[2017-10-29] MEDS: ENOXAPARIN SODIUM 40 MG/0.4 ML SYG SUBCU SCH (17:24)
[2017-10-29] MEDS: NON-FORMULARY MEDICATION 1 EA MIS (Memantine Hcl-Donepezil Hcl [Namzaric 28-10 Mg] 1 CAP) PO SCH (20:28)
[2017-10-29] MEDS: MONTELUKAST 10 MG TAB PO SCH (20:29)
[2017-10-29] MEDS: SIMVASTATIN 20 MG TAB PO SCH (20:29)
[2017-10-29] MEDS: lamoTRIgine 25 MG TAB PO SCH (20:30)
[2017-10-29] MEDS: ESCITALOPRAM 10 MG TAB PO SCH (20:31)
[2017-10-30] MEDS: LEVALBUTEROL NEBS 1.25 MG/3 ML VIAL NEB SCH ×6 (00:35→20:10)
[2017-10-30] MEDS: methylPREDNISolone SODIUM SUC 125 MG/2 ML VIAL IV SCH ×4 (02:21→23:38)
[2017-10-30] MEDS: PANTOPRAZOLE SODIUM IV 40 MG VIAL IV SCH (06:15)
--- NOTE | 2017-10-30 06:31 | RAD ---
Chest 2 view on 10/30/2017 CLINICAL INDICATION: Asthma exacerbation, CHF COMPARISON: 10/29/2017 FINDINGS: There is a moderate-sized hiatal hernia. Vascular calcification is noted in the aorta. There has been mild worsening of interstitial opacities suggesting mild edema. Lungs are otherwise clear. IMPRESSION: Mild worsening interstitial opacities suggesting mild edema. Electronically signed by: Doc Micntyre 10/30/2017 6:29 AM CDT
[2017-10-30] MEDS: UMECLIDINIUM BROMIDE INH SCH (07:55)
[2017-10-30] MEDS: POTASSIUM CHLORIDE 8 MEQ TAB PO SCH (08:09)
[2017-10-30] MEDS: FERROUS GLUCONATE 325 MG TAB PO SCH (08:09)
[2017-10-30] MEDS ORDERED: predniSONE 20 MG TAB PO SCH (09:00)
[2017-10-30] MEDS: ALPRAZolam 0.25 MG TAB PO PRN ×2 (09:27→20:51)
[2017-10-30] MEDS: AZITHROMYCIN 250 MG TAB PO SCH (09:27)
[2017-10-30] MEDS: guaiFENesin ER TAB 600 MG TAB PO SCH ×2 (09:27→20:51)
[2017-10-30] MEDS: NON-FORMULARY MEDICATION 1 EA MIS (Letrozole [Letrozole] 2.5 MG) PO SCH (09:35)
[2017-10-30] MEDS ORDERED: FUROSEMIDE INJ 40 MG/4 ML VIAL IV ONE (10:00)
--- NOTE | 2017-10-30 12:33 | PN ---
SUPERVISING PHYSICIAN: Socrates Mclain MD DATE: 10/30/17 SUBJECTIVE: The patient is sitting on the side of her bed. She complains of shortness of breath when she lies flat or with exertion, it is not worse than it was yesterday but it does not seem to be better. Otherwise, she denies chest pain, nausea or vomiting, constipation or diarrhea. OBJECTIVE: VITAL SIGNS: She is afebrile. Heart rate 91, blood pressure 124/79, respiratory rate 22, 02 saturation 96% on 4 liters nasal cannula. RESPIRATORY: She is tachypneic with some labored breathing. She does have to speak in short phrases due to her shortness of breath. She has expiratory wheezes throughout all lung smith and somewhat diminished at the bases. CARDIAC: Regular rate and rhythm. GI: Abdomen is soft, nondistended, non-tender. Bowel sounds are positive. EXTREMITIES: No cyanosis, clubbing, or edema. NEURO: She is awake, alert, and oriented x3. LABORATORY: Sodium 140, potassium 4.2, chloride 104, carbon dioxide 28, BUN 26 , creatinine 0.84. Chest x-ray showed a mild worsening in interstitial opacities suggesting mild edema. All other labs and films have been reviewed via the EMR. ASSESSMENT: 1. Acute exacerbation of chronic obstructive pulmonary disease with bronchial asthma having failed to respond to treatments in the outpatient setting. The patient is chronically O2 dependent. She has respiratory distress and hypercapnia on initial admission. At this point, she is having a slow clinical response with corticosteroids and aggressive bronchial therapy but she is slightly improving. 2. History of asthma with multiple exacerbations in the past year. 3. Hypertension. 4. Hyperlipidemia. 5. History of moderate mitral and tricuspid regurgitation with last echocardiogram noted to be in August 2015 with no results currently available at time of admission. 6. Gastroesophageal reflux disease. 7. Coronary artery disease. 8. History of Crohn's disease with a history of being previously on chronic steroids but currently not on any regimen. 9. Osteoporosis. 10. Alzheimer's disease. 11. Obesity with a body mass index of 32.8 on admission. 12. Depression and anxiety. PLAN: We will continue present supportive care. She continues with respiratory distress and some wheezing. We will continue with good pulmonary hygiene and I will do a very slow taper of her IV steroids. I am also going to give her one dose of Lasix and will repeat her labs and chest x-ray in the morning. She has a significant history of multiple hospitalizations with developing pneumonia so we will watch her very closely. At this point, she is having a slow clinical response. Will continue on her Rocephin and azithromycin as well as her fluid restriction.. If she improves over the next several days, we can anticipate discharge in the next 48 to 72 hours. We will continue to monitor and treat appropriately. #[id number] [facility]
[2017-10-30] MEDS ORDERED: cefTRIAXone SODIUM 1 GM VIAL ONE (15:56)
[2017-10-30] MEDS ORDERED: SODIUM CHL 0.9% 50ML MIN-BAG+ 50 ML IVPB ONE (15:56)
[2017-10-30] MEDS: cefTRIAXone SODIUM 1 GM in SODIUM CHL 0.9% 50ML MIN-BAG+ 50 ML IVPB SCH (15:57)
[2017-10-30] MEDS: ENOXAPARIN SODIUM 40 MG/0.4 ML SYG SUBCU SCH (17:49)
[2017-10-30] MEDS: lamoTRIgine 25 MG TAB PO SCH (20:51)
[2017-10-30] MEDS: ESCITALOPRAM 10 MG TAB PO SCH (20:51)
[2017-10-30] MEDS: MONTELUKAST 10 MG TAB PO SCH (20:51)
[2017-10-30] MEDS: SIMVASTATIN 20 MG TAB PO SCH (20:51)
[2017-10-30] MEDS: NON-FORMULARY MEDICATION 1 EA MIS (Memantine Hcl-Donepezil Hcl [Namzaric 28-10 Mg] 1 CAP) PO SCH (20:52)
[2017-10-30] MEDS: SODIUM CHLORIDE 0.9% (FLUSH) 10 ML SYG IV SCH (20:52)
[2017-10-30] MEDS: ACETAMINOPHEN 325 MG TAB PO PRN (21:52)
[2017-10-31] MEDS: LEVALBUTEROL NEBS 1.25 MG/3 ML VIAL NEB SCH ×6 (00:30→19:53)
[2017-10-31] MEDS: methylPREDNISolone SODIUM SUC 125 MG/2 ML VIAL IV SCH (05:44)
[2017-10-31] MEDS: PANTOPRAZOLE SODIUM IV 40 MG VIAL IV SCH (06:01)
--- NOTE | 2017-10-31 08:12 | RAD ---
EXAM DESCRIPTION: Chest,2 Views CLINICAL HISTORY: pulm edema COMPARISON: 10/30/2017 FINDINGS: Single view of the chest is submitted. Cardiac silhouette is normal. Consolidation is improving at the right lung base. There is decreased pulmonary vascular engorgement. IMPRESSION: Improving pulmonary edema. Improving right lung base consolidation. Electronically signed by: Fahad Coyne 10/31/2017 8:11 AM CDT
[2017-10-31] MEDS: POTASSIUM CHLORIDE 8 MEQ TAB PO SCH (08:17)
[2017-10-31] MEDS: FERROUS GLUCONATE 325 MG TAB PO SCH (08:17)
[2017-10-31] MEDS: ALPRAZolam 0.25 MG TAB PO PRN (08:22)
[2017-10-31] MEDS: guaiFENesin ER TAB 600 MG TAB PO SCH ×2 (08:22→20:41)
[2017-10-31] MEDS: AZITHROMYCIN 250 MG TAB PO SCH (08:22)
[2017-10-31] MEDS: UMECLIDINIUM BROMIDE INH SCH (08:44)
[2017-10-31] MEDS: SODIUM CHLORIDE 0.9% (FLUSH) 10 ML SYG IV SCH ×2 (09:00→20:42)
[2017-10-31] MEDS: NON-FORMULARY MEDICATION 1 EA MIS (Letrozole [Letrozole] 2.5 MG) PO SCH (09:00)
[2017-10-31] MEDS: methylPREDNISolone SODIUM SUC 40 MG/ML VIAL IV SCH ×3 (12:32→23:33)
--- NOTE | 2017-10-31 15:01 | PN ---
SUPERVISING PHYSICIAN: German Marquez MD DATE: 10/31/17 SUBJECTIVE: The patient is lying in her bed. She is asleep. She awakens easily. She continues with complaints of shortness of breath and weakness. She says it has improved slightly. She is also coughing up some thick phlegm. Otherwise, she denies chest pain, nausea or vomiting or constipation. . OBJECTIVE: VITAL SIGNS: She is afebrile. Heart rate 75, blood pressure 155/91, respiratory rate 22, has been as high as 24. 02 saturation is 94% on 2 liters nasal cannula. RESPIRATORY: Diminished at the bases but some expiratory wheezes, especially in the apices. Slightly improved from yesterday. She is tachypneic. She does have to speak in short phrases due to her dyspnea. . CARDIAC: Regular rate, slightly irregular rhythm. . GI: Abdomen is soft, nondistended, non-tender. Bowel sounds are positive. NEURO: She is awake, alert, and oriented x3. LABORATORY: WBC normal with a left shift. Neutrophils at 95.6. Hemoglobin 12.5, hematocrit 37.3. Electrolytes are basically within normal limits. Chest x-ray shows improving pulmonary edema, improving right lung base consolidation. All other labs and films have been reviewed via the EMR. ASSESSMENT: 1. Acute exacerbation of chronic obstructive pulmonary disease with bronchial asthma having failed to respond to treatments in the outpatient setting. The patient is chronically O2 dependent. She has respiratory distress and hypercapnia on initial admission. At this point, she is having a slow clinical response with antibiotics, corticosteroids and aggressive bronchial therapy but she is slightly improving. 2. History of asthma with multiple exacerbations in the past year. 3. Hypertension. 4. Hyperlipidemia. 5. History of moderate mitral and tricuspid regurgitation with last echocardiogram noted to be in August 2015 with no results currently available at time of admission. 6. Gastroesophageal reflux disease. 7. Coronary artery disease. 8. History of Crohn's disease with a history of being previously on chronic steroids but currently not on any regimen. 9. Osteoporosis. 10. Alzheimer's disease. 11. Obesity with a body mass index of 32.8 on admission. 12. Depression and anxiety. PLAN: We will continue present supportive care with slowly weaning her steroids and continuing her Rocephin and azithromycin. I have ordered physical therapy and also ordered some Mucinex. 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 Otherwise, I will hold off on any labs or films tomorrow. Will watch her clinically. We will continue to monitor her closely and follow as needed. Dr. Marquez is the collaborating physician and available for consultation. . [facility][id number] [facility]
[2017-10-31] MEDS ORDERED: cefTRIAXone SODIUM 1 GM VIAL ONE (16:46)
[2017-10-31] MEDS ORDERED: SODIUM CHL 0.9% 50ML MIN-BAG+ 50 ML IVPB ONE (16:46)
[2017-10-31] MEDS: IV SET AND CAP CHANGE INJ INJ SCH (17:01)
[2017-10-31] MEDS: cefTRIAXone SODIUM 1 GM in SODIUM CHL 0.9% 50ML MIN-BAG+ 50 ML IVPB SCH (17:02)
[2017-10-31] MEDS: ENOXAPARIN SODIUM 40 MG/0.4 ML SYG SUBCU SCH (17:36)
[2017-10-31] MEDS: lamoTRIgine 25 MG TAB PO SCH (20:40)
[2017-10-31] MEDS: NON-FORMULARY MEDICATION 1 EA MIS (Memantine Hcl-Donepezil Hcl [Namzaric 28-10 Mg] 1 CAP) PO SCH (20:40)
[2017-10-31] MEDS: ESCITALOPRAM 10 MG TAB PO SCH (20:40)
[2017-10-31] MEDS: NYSTATIN SUSPENSION 5 ML UD MT SCH (20:41)
[2017-10-31] MEDS: SIMVASTATIN 20 MG TAB PO SCH (20:42)
[2017-10-31] MEDS: MONTELUKAST 10 MG TAB PO SCH (20:42)
[2017-10-31] MEDS: ACETAMINOPHEN 325 MG TAB PO PRN (20:49)
[2017-10-31] MEDS: ZOLPIDEM TARTRATE 5 MG TAB PO PRN (22:36)
[2017-11-01] MEDS: LEVALBUTEROL NEBS 1.25 MG/3 ML VIAL NEB SCH ×6 (00:07→20:28)
[2017-11-01] MEDS: PANTOPRAZOLE SODIUM IV 40 MG VIAL IV SCH (06:19)
[2017-11-01] MEDS: methylPREDNISolone SODIUM SUC 40 MG/ML VIAL IV SCH (06:20)
[2017-11-01] MEDS: NYSTATIN SUSPENSION 5 ML UD MT SCH ×4 (06:42→21:02)
[2017-11-01] MEDS: UMECLIDINIUM BROMIDE INH SCH (07:30)
[2017-11-01] MEDS ORDERED: SODIUM CHL 0.9% 50ML MIN-BAG+ 50 ML IVPB ONE (08:16)
[2017-11-01] MEDS ORDERED: cefTRIAXone SODIUM 1 GM VIAL ONE (08:16)
[2017-11-01] MEDS: POTASSIUM CHLORIDE 8 MEQ TAB PO SCH (08:27)
[2017-11-01] MEDS: FERROUS GLUCONATE 325 MG TAB PO SCH (08:27)
[2017-11-01] MEDS: guaiFENesin ER TAB 600 MG TAB PO SCH ×2 (08:43→21:02)
[2017-11-01] MEDS: ALPRAZolam 0.25 MG TAB PO PRN (08:43)
[2017-11-01] MEDS: AZITHROMYCIN 250 MG TAB PO SCH (08:44)
[2017-11-01] MEDS: SODIUM CHLORIDE 0.9% (FLUSH) 10 ML SYG IV SCH ×2 (08:44→21:02)
[2017-11-01] MEDS: NON-FORMULARY MEDICATION 1 EA MIS (Letrozole [Letrozole] 2.5 MG) PO SCH (08:44)
[2017-11-01] MEDS: cefTRIAXone SODIUM 1 GM in SODIUM CHL 0.9% 50ML MIN-BAG+ 50 ML IVPB SCH (17:06)
[2017-11-01] MEDS ORDERED: methylPREDNISolone SODIUM SUC 40 MG/ML VIAL IV ONE (18:00)
[2017-11-01] MEDS ORDERED: traMADol HCL 50 MG TAB PO PRN (18:11)
[2017-11-01] MEDS: lamoTRIgine 25 MG TAB PO SCH (21:00)
[2017-11-01] MEDS: NON-FORMULARY MEDICATION 1 EA MIS (Memantine Hcl-Donepezil Hcl [Namzaric 28-10 Mg] 1 CAP) PO SCH (21:01)
[2017-11-01] MEDS: ESCITALOPRAM 10 MG TAB PO SCH (21:01)
[2017-11-01] MEDS: ENOXAPARIN SODIUM 40 MG/0.4 ML SYG SUBCU SCH (21:01)
[2017-11-01] MEDS: MONTELUKAST 10 MG TAB PO SCH (21:03)
[2017-11-01] MEDS: SIMVASTATIN 20 MG TAB PO SCH (21:03)
--- NOTE | 2017-11-01 21:04 | PN ---
DATE: 11/01/17 SUPERVISING PHYSICIAN: German Marquez M.D. SUBJECTIVE: The patient is sitting up on the side of her bed. She is eating her meal. Her shortness of breath is much improved. She actually "feels like a new woman." She continues to have some shortness of breath but it is with exertion, but she felt like that when she ambulated in the halls it had improved. She is having some neck pain which is chronic, but otherwise denies chest pain, nausea, vomiting or constipation. OBJECTIVE: VITAL SIGNS: She is afebrile, heart rate 72, blood pressure 143/76, respiratory rate 24, O2 sat is 98% on 2 liters nasal cannula. RESPIRATORY: Essentially clear to auscultation bilaterally except expiratory wheeze in the right lower lung field. She is slightly tachypneic. CARDIAC: Regular rate and rhythm. GASTROINTESTINAL: Abdomen is soft, nondistended, non-tender. Bowel sounds are positive. EXTREMITIES: No cyanosis, clubbing or edema. NEUROLOGIC: She is awake, alert and oriented times three. LABORATORY: There are no labs or films to report at this time. ASSESSMENT: 1. Acute exacerbation of chronic obstructive pulmonary disease with bronchial asthma having failed to respond to treatments in the outpatient setting. She is chronically O2 dependent. She had respiratory distress and hypercapnia on initial admission. During her hospitalization she had a very slow clinical response with corticosteroids but it is now improved over the last 24 hours. She is still on IV corticosteroids and we are continuing with aggressive pulmonary hygiene as well as antibiotics of Rocephin and azithromycin. 2. History of asthma with multiple exacerbations in the past year. 3. Hypertension. 4. Hyperlipidemia. 5. History of moderate mitral and tricuspid regurgitation with last echocardiogram noted to be in August 2015 with no results currently available at time of admission. 6. Gastroesophageal reflux disease. 7. Coronary artery disease. 8. History of Crohn's disease with a history of being previously on chronic steroids but currently not on any regimen. 9. Osteoporosis. 10. Alzheimer's disease. 11. Obesity with a body mass index of 32.8 on admission. 12. Depression and anxiety. PLAN: We will continue present supportive care. She will receive one additional dose of IV steroids tonight and tomorrow she will start on her p.o. prednisone. Will continue with her azithromycin and Rocephin. I have encouraged her to continue with good pulmonary hygiene and increase her ambulation. I will do labs and a chest x-ray in the morning. She has had a very slow clinical response. In fact, she had a hospitalization about a month ago. Will monitor her closely and hope to discharge on probably . Otherwise will follow the patient as needed. #[id number] [facility]
[2017-11-02] MEDS: LEVALBUTEROL NEBS 1.25 MG/3 ML VIAL NEB SCH ×6 (00:07→21:04)
[2017-11-02] MEDS: ZOLPIDEM TARTRATE 5 MG TAB PO PRN ×2 (00:38→23:56)
[2017-11-02] MEDS: PANTOPRAZOLE SODIUM TAB 40 MG PO SCH (06:27)
[2017-11-02] MEDS: NYSTATIN SUSPENSION 5 ML UD MT SCH ×4 (06:32→21:31)
--- NOTE | 2017-11-02 07:00 | RAD ---
EXAM: PA and LATERAL CHEST RADIOGRAPHS CLINICAL INDICATION: Pneumonia. COMPARISON: Chest radiographs of October 31, 2017 at 0653 hours. FINDINGS: Cardiac size and pulmonary vasculature are normal. Unchanged subtle right basilar consolidation. No pleural effusions or pneumothorax. No free peritoneal gas layering under the hemidiaphragms. No suspicious hilar or mediastinal lymphadenopathy. Bones are intact on these two views. IMPRESSION: Unchanged chest radiographs. Electronically signed by: Calin Lopez MD 11/02/2017 6:59 AM CDT
[2017-11-02] MEDS: POTASSIUM CHLORIDE 8 MEQ TAB PO SCH (07:26)
[2017-11-02] MEDS: FERROUS GLUCONATE 325 MG TAB PO SCH (07:27)
[2017-11-02] MEDS: guaiFENesin ER TAB 600 MG TAB PO SCH ×2 (08:47→21:30)
[2017-11-02] MEDS: NON-FORMULARY MEDICATION 1 EA MIS (Letrozole [Letrozole] 2.5 MG) PO SCH (08:50)
[2017-11-02] MEDS: SODIUM CHLORIDE 0.9% (FLUSH) 10 ML SYG IV SCH ×2 (08:51→21:30)
[2017-11-02] MEDS ORDERED: predniSONE 20 MG TAB PO SCH (09:00)
[2017-11-02] MEDS: UMECLIDINIUM BROMIDE INH SCH (09:08)
[2017-11-02] MEDS ORDERED: cefTRIAXone SODIUM 1 GM VIAL ONE (15:14)
[2017-11-02] MEDS ORDERED: SODIUM CHL 0.9% 50ML MIN-BAG+ 50 ML IVPB ONE (15:14)
[2017-11-02] MEDS: cefTRIAXone SODIUM 1 GM in SODIUM CHL 0.9% 50ML MIN-BAG+ 50 ML IVPB SCH (15:51)
[2017-11-02] MEDS: SODIUM CHLORIDE 0.9% (FLUSH) 10 ML SYG IV PRN ×2 (15:51→19:34)
[2017-11-02] MEDS ORDERED: predniSONE 20 MG TAB PO ONE (17:35)
[2017-11-02] MEDS ORDERED: methylPREDNISolone SODIUM SUC 125 MG/2 ML VIAL IV ONE (17:36)
[2017-11-02] MEDS: ESCITALOPRAM 10 MG TAB PO SCH (21:29)
[2017-11-02] MEDS: lamoTRIgine 25 MG TAB PO SCH (21:29)
[2017-11-02] MEDS: SIMVASTATIN 20 MG TAB PO SCH (21:30)
[2017-11-02] MEDS: ENOXAPARIN SODIUM 40 MG/0.4 ML SYG SUBCU SCH (21:30)
[2017-11-02] MEDS: MONTELUKAST 10 MG TAB PO SCH (21:30)
[2017-11-02] MEDS: NON-FORMULARY MEDICATION 1 EA MIS (Memantine Hcl-Donepezil Hcl [Namzaric 28-10 Mg] 1 CAP) PO SCH (21:30)
[2017-11-02] MEDS: methylPREDNISolone SODIUM SUC 40 MG/ML VIAL IV SCH (23:56)
[2017-11-03] MEDS: LEVALBUTEROL NEBS 1.25 MG/3 ML VIAL NEB SCH ×6 (00:25→20:45)
--- NOTE | 2017-11-03 00:41 | PN ---
DATE: 11/02/17 SUPERVISING PHYSICIAN: German Marquez M.D. SUBJECTIVE: The patient is lying in bed. She is asleep. She awakens easily. Feels much worse today than she did yesterday. Having some shortness of breath and wheezing. No complaints of chest pain, nausea, vomiting, diarrhea or constipation. OBJECTIVE: VITAL SIGNS: She is afebrile, heart rate 72, blood pressure 148/69, respiratory rate 22, O2 sat is 95% on 2 liters nasal cannula. RESPIRATORY: Scattered expiratory wheezes throughout all lung smith. CARDIAC: Regular rate and rhythm. NEUROLOGIC: She is awake, alert and oriented times three. LABORATORY: There are no labs to report today. CHEST X-RAY: Unchanged chest radiographs. All other labs and films have been reviewed via the EMR. ASSESSMENT: 1. Acute exacerbation of chronic obstructive pulmonary disease with bronchial asthma having failed to respond to treatments in the outpatient setting. She is chronically O2 dependent. She had respiratory distress and hypercapnia on initial admission. During her hospitalization she had a very slow clinical response with corticosteroids. She has improved. She was switched from IV steroids to p.o. steroids and has not tolerated the change. She is also on Rocephin and azithromycin. 2. History of asthma with multiple exacerbations in the past year. 3. Hypertension. 4. Hyperlipidemia. 5. History of moderate mitral and tricuspid regurgitation with last echocardiogram noted to be in August 2015 with no results currently available at time of admission. 6. Gastroesophageal reflux disease. 7. Coronary artery disease. 8. History of Crohn's disease with a history of being previously on chronic steroids but currently not on any regimen. 9. Osteoporosis. 10. Alzheimer's disease. 11. Obesity with a body mass index of 32.8 on admission. 12. Depression and anxiety. PLAN: We will continue present supportive care. I have stopped her p.o. steroids and will go back to a very slow taper of low dose IV steroids. Will have to watch her clinical response closely. Due to her poor response, may consider aspiration pneumonia as a differential. I will hold off on labs or x- rays for in the morning. We will watch her clinical response. She may just need a very slow taper of her IV steroids before changing to p.o. steroids. Will continue to monitor her closely and follow as needed. Dr. Marquez is the collaborating physician available for consultation. [facility][id number] [facility]
[2017-11-03] MEDS: methylPREDNISolone SODIUM SUC 40 MG/ML VIAL IV SCH ×3 (06:03→18:00)
[2017-11-03] MEDS: PANTOPRAZOLE SODIUM TAB 40 MG PO SCH (06:03)
[2017-11-03] MEDS: NYSTATIN SUSPENSION 5 ML UD MT SCH ×4 (06:45→20:29)
[2017-11-03] MEDS: FERROUS GLUCONATE 325 MG TAB PO SCH (07:29)
[2017-11-03] MEDS: POTASSIUM CHLORIDE 8 MEQ TAB PO SCH (07:29)
[2017-11-03] MEDS: UMECLIDINIUM BROMIDE INH SCH (08:50)
[2017-11-03] MEDS: SODIUM CHLORIDE 0.9% (FLUSH) 10 ML SYG IV SCH ×2 (08:51→20:30)
[2017-11-03] MEDS: guaiFENesin ER TAB 600 MG TAB PO SCH ×2 (08:51→20:29)
[2017-11-03] MEDS ORDERED: predniSONE 20 MG TAB PO SCH (09:00)
[2017-11-03] MEDS: NON-FORMULARY MEDICATION 1 EA MIS (Letrozole [Letrozole] 2.5 MG) PO SCH (11:34)
[2017-11-03] MEDS: IPRATROPIUM BROMIDE NEBS 0.5 MG/2.5 ML VIAL NEB PRN ×2 (16:10→20:45)
[2017-11-03] MEDS ORDERED: SODIUM CHL 0.9% 50ML MIN-BAG+ 50 ML IVPB ONE (16:16)
[2017-11-03] MEDS ORDERED: cefTRIAXone SODIUM 1 GM VIAL ONE (16:16)
[2017-11-03] MEDS: cefTRIAXone SODIUM 1 GM in SODIUM CHL 0.9% 50ML MIN-BAG+ 50 ML IVPB SCH (16:19)
[2017-11-03] MEDS: IV SET AND CAP CHANGE INJ INJ SCH (17:56)
[2017-11-03] MEDS: NYSTATIN POWDER 15GM BTTL TOP SCH (20:26)
[2017-11-03] MEDS: ESCITALOPRAM 10 MG TAB PO SCH (20:29)
[2017-11-03] MEDS: MONTELUKAST 10 MG TAB PO SCH (20:29)
[2017-11-03] MEDS: NON-FORMULARY MEDICATION 1 EA MIS (Memantine Hcl-Donepezil Hcl [Namzaric 28-10 Mg] 1 CAP) PO SCH (20:30)
[2017-11-03] MEDS: SIMVASTATIN 20 MG TAB PO SCH (20:30)
[2017-11-03] MEDS: ENOXAPARIN SODIUM 40 MG/0.4 ML SYG SUBCU SCH (20:30)
[2017-11-03] MEDS: lamoTRIgine 25 MG TAB PO SCH (20:30)
[2017-11-04] MEDS: methylPREDNISolone SODIUM SUC 40 MG/ML VIAL IV SCH ×3 (00:20→11:57)
[2017-11-04] MEDS: ZOLPIDEM TARTRATE 5 MG TAB PO PRN ×2 (00:23→23:25)
[2017-11-04] MEDS: LEVALBUTEROL NEBS 1.25 MG/3 ML VIAL NEB SCH ×6 (00:32→20:13)
[2017-11-04] MEDS: IPRATROPIUM BROMIDE NEBS 0.5 MG/2.5 ML VIAL NEB PRN ×2 (03:46→20:13)
[2017-11-04] MEDS: PANTOPRAZOLE SODIUM TAB 40 MG PO SCH (06:33)
[2017-11-04] MEDS: NYSTATIN SUSPENSION 5 ML UD MT SCH ×4 (06:33→21:14)
--- NOTE | 2017-11-04 06:54 | RAD ---
EXAM: PA and LATERAL CHEST RADIOGRAPHS CLINICAL INDICATION: Aspiration pneumonia? COMPARISON: Chest radiographs of November 02, 2017. FINDINGS: Cardiac size and pulmonary vasculature are normal. Unchanged bibasilar scar versus atelectasis in the hyperexpanded lungs. No pleural effusions or pneumothorax. No free peritoneal gas layering under the hemidiaphragms. No suspicious hilar or mediastinal lymphadenopathy. Bones are intact on these two views. IMPRESSION: Unchanged chest radiograph. No evidence of aspiration pneumonia. Electronically signed by: Calin Lopez MD 11/04/2017 6:53 AM CDT
[2017-11-04] MEDS: FERROUS GLUCONATE 325 MG TAB PO SCH (07:35)
[2017-11-04] MEDS: POTASSIUM CHLORIDE 8 MEQ TAB PO SCH (07:35)
--- NOTE | 2017-11-04 08:01 | PN ---
SUPERVISING PHYSICIAN: German Marquez M.D. DATE: 11/03/17 SUBJECTIVE: The patient is lying in her hospital bed. She is asleep. She awakens easily. She complains of wheezing and extreme fatigue, but is some better than yesterday. She has some coughing, but no fever, nausea or vomiting. OBJECTIVE: VITAL SIGNS: Afebrile. Heart rate 79. Blood pressure 131/66. Respiratory rate 22. O2 sat is 95% on 2 liters nasal cannula. RESPIRATORY: Expiratory wheezes in bilateral lower lung smith, slightly improved since yesterday. CARDIAC: Regular rate and rhythm. GASTROINTESTINAL: Abdomen is soft, nondistended, nontender. Bowel sounds are positive. EXTREMITIES: No cyanosis, clubbing or edema. NEUROLOGIC: She is awake, alert. LABORATORY: WBCs 7.6, hemoglobin 13.3, hematocrit 40.1, bands 7. Sodium 138, potassium 4.2, chloride 101, carbon dioxide 31, BUN 24, creatinine 0.87, glucose 208, calcium 9.5, magnesium 2.6. All other labs and films have been reviewed via the EMR. ASSESSMENT: 1. Acute exacerbation of chronic obstructive pulmonary disease with bronchial asthma having failed to respond to treatments in the outpatient setting. She is chronically O2 dependent. She had respiratory distress and hypercapnia on initial admission. During her hospitalization, she had a very slow clinical response with corticosteroids. She has improved, but very slowly. She has been switched from IV steroids to p.o. steroids several times and has not tolerated the change. She is also on Rocephin and azithromycin. 2. History of asthma with multiple exacerbations in the past year. 3. Hypertension. 4. Hyperlipidemia. 5. History of moderate mitral and tricuspid regurgitation with last echocardiogram noted to be in August 2015 with no results currently available at time of admission. 6. Gastroesophageal reflux disease. 7. Coronary artery disease. 8. History of Crohn's disease with a history of being previously on chronic steroids but currently not on any regimen. 9. Osteoporosis. 10. Alzheimer's disease. 11. Obesity with a body mass index of 32.8 on admission. 12. Depression and anxiety. PLAN: We will continue present supportive care. She was switched to IV steroids yesterday and she continues on 20 mg IV q.6h. We will watch her clinical response. 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 She may have to go home on some routine steroids. I spoke with her primary care physician, Dr. Socrates Mclain, yesterday afternoon and he suggested that we do a very slow taper on her steroids as well as watch for signs or symptoms of aspiration pneumonia. She may need an evaluation for that as an outpatient. I have ordered AM labs as well as a chest x-ray for in the morning. Will continue to monitor her closely and follow as needed. Dr. Marquez is the collaborating physician available for consultation. #[id number] [facility]
[2017-11-04] MEDS: NON-FORMULARY MEDICATION 1 EA MIS (Letrozole [Letrozole] 2.5 MG) PO SCH (08:02)
[2017-11-04] MEDS: guaiFENesin ER TAB 600 MG TAB PO SCH ×2 (08:05→21:15)
[2017-11-04] MEDS: SODIUM CHLORIDE 0.9% (FLUSH) 10 ML SYG IV SCH ×2 (08:05→21:14)
[2017-11-04] MEDS: UMECLIDINIUM BROMIDE INH SCH (08:06)
[2017-11-04] MEDS: NYSTATIN POWDER 15GM BTTL TOP SCH ×4 (08:06→21:13)
[2017-11-04] MEDS ORDERED: cefTRIAXone SODIUM 1 GM VIAL ONE (15:57)
[2017-11-04] MEDS ORDERED: SODIUM CHL 0.9% 50ML MIN-BAG+ 50 ML IVPB ONE (15:57)
[2017-11-04] MEDS: cefTRIAXone SODIUM 1 GM in SODIUM CHL 0.9% 50ML MIN-BAG+ 50 ML IVPB SCH (16:02)
[2017-11-04] MEDS ORDERED: predniSONE 20 MG TAB PO ONE (18:00)
[2017-11-04] MEDS: lamoTRIgine 25 MG TAB PO SCH (21:14)
[2017-11-04] MEDS: NON-FORMULARY MEDICATION 1 EA MIS (Memantine Hcl-Donepezil Hcl [Namzaric 28-10 Mg] 1 CAP) PO SCH (21:14)
[2017-11-04] MEDS: ENOXAPARIN SODIUM 40 MG/0.4 ML SYG SUBCU SCH (21:14)
[2017-11-04] MEDS: ESCITALOPRAM 10 MG TAB PO SCH (21:14)
[2017-11-04] MEDS: SIMVASTATIN 20 MG TAB PO SCH (21:15)
[2017-11-04] MEDS: MONTELUKAST 10 MG TAB PO SCH (21:15)
[2017-11-05] MEDS: LEVALBUTEROL NEBS 1.25 MG/3 ML VIAL NEB SCH ×3 (00:14→08:57)
[2017-11-05] MEDS: IPRATROPIUM BROMIDE NEBS 0.5 MG/2.5 ML VIAL NEB PRN ×2 (04:57→08:57)
[2017-11-05 06:16] VITALS: TEMP 98.1
[2017-11-05] MEDS: PANTOPRAZOLE SODIUM TAB 40 MG PO SCH (06:17)
[2017-11-05] MEDS: FERROUS GLUCONATE 325 MG TAB PO SCH (07:13)
[2017-11-05] MEDS: NYSTATIN SUSPENSION 5 ML UD MT SCH ×2 (07:13→11:49)
[2017-11-05] MEDS: POTASSIUM CHLORIDE 8 MEQ TAB PO SCH (07:13)
[2017-11-05] MEDS: NON-FORMULARY MEDICATION 1 EA MIS (Letrozole [Letrozole] 2.5 MG) PO SCH (08:27)
[2017-11-05] MEDS: SODIUM CHLORIDE 0.9% (FLUSH) 10 ML SYG IV SCH (08:56)
[2017-11-05] MEDS: guaiFENesin ER TAB 600 MG TAB PO SCH (08:56)
[2017-11-05] MEDS: UMECLIDINIUM BROMIDE INH SCH (08:57)
[2017-11-05] MEDS ORDERED: predniSONE 20 MG TAB PO SCH (09:00)
[2017-11-05] MEDS: NYSTATIN POWDER 15GM BTTL TOP SCH (09:51)
[2017-11-05 10:12] VITALS: BP 152/79; O2SAT 98
--- NOTE | 2017-11-07 08:46 | DS ---
SUPERVISING PHYSICIAN: German Marquez MD DISCHARGE DIAGNOSES: 1. Acute exacerbation of chronic obstructive pulmonary disease with bronchial asthma having failed initially to respond to treatments being chronic 02 and showing improvement initially but requiring slow taper of steroids. . 2. History of asthma with multiple exacerbations in the past year. 3. Hypertension. 4. Hyperlipidemia. 5. History of moderate mitral and tricuspid regurgitation with last echocardiogram in 2016 with results not available. 6. Gastroesophageal reflux disease. 7. Coronary artery disease. 8. History of Crohn's disease with a history of being previously on chronic steroids but currently before admission not on steroid regimen. 9. Osteoporosis. 10. Alzheimer's disease. 11. Obesity with a body mass index of 32.8 on admission. 12. Depression and anxiety. REASON FOR HOSPITALIZATION: Ms. Castillo is a 77 year-old female patient that presented to the Emergency Room on 10/28/17 due to significant worsening shortness of breath. She does have a longstanding history of chronic obstructive pulmonary disease with asthma and bronchial pneumonia in the past. Her daughter noted that she had been using her Xopenex treatment every couple of hours with no improvement over 24 hours prior to admission. She noted that initially her symptoms started developing in the past week and slowly progressed. She was denying any fevers, cough, congestion or sore throat on admission but was unable to fully speak in a complete sentences initially in the Emergency Department. She is 02 dependent 27/12. In the Emergency Room she had significant respirations and labored effort at 26 with audible inspiratory and expiratory wheezing. She was given Solu-Medrol and several breathing treatments with minimal relief but continued to have significant wheezing and shortness of breath with any exertional effort. Given the past history of recent hospitalization in September and her severe respiratory distress currently, the patient was admitted for continuation of treatment of acute exacerbation of chronic obstructive pulmonary disease and asthma. The patient was admitted in stable condition. LABORATORY: Initial CBC on admission showed a white count of 6,600. She never did show a leukocytosis even with the high-dose steroids and at discharge her white count was 8,800. Hemoglobin and hematocrit were stable at 12.8 and 39.2 at discharge with a platelet count of 192,000 on admission and 181,000 on discharge. She did show a left shift, although no extended white count and on the showed an increase in her bands. Electrolytes on admission were normal except for an elevated C02 of 35. BUN and creatinine were normal with a creatinine of 1.15, calcium 10.1 and magnesium 2.1. Liver functions all within normal limits as well as troponin at 0.02. BNP was elevated at 468. Through the hospitalization her electrolytes remained within normal limits and her C02 did normalize and at discharge was down to 31. Kidney function remained stable and on discharge her creatinine was 0.74. Urinalysis showed glucose of 250, otherwise was within normal limits. MICROBIOLOGY: She was never able to produce a sputum, I know that specimens were collected. RADIOLOGY: She had multiple chest x-rays. Initial chest x-ray on admission showed no obvious pleural effusion, pneumothorax or infiltrates or consolidations. Did show some enlargement of the cardiac silhouette but there was no pulmonary congestion noted. Multiple x-rays again were completed. She did start showing some edema as well as a right lung base consolidation. This was followed through admission and at time of discharge the last x-ray on day before discharge showed unchanged radiographic studies with no aspiration pneumonia evident. There were no suspicious hilar masses or lymphadenopathy. Cardiac size and patient underwent vasculature were normal. There remained unchanged bibasilar scar versus atelectasis and a hyperexpanded lung. There was no free peritoneal gas underlying the hemidiaphragms. Please see that report for full details. HOSPITAL COURSE: Ms. Castillo was admitted on 10/28/17 for exacerbation of her chronic obstructive pulmonary disease and bronchial asthma. She was started on aggressive pulmonary hygiene as well as antibiotic therapy with Rocephin and azithromycin. She was very slow to progress with Xopenex breathing treatments and high-dose steroids. She had to taper off at small increments and on 10/31, the patient started demonstrating after being placed on p.o. prednisone, rebound of her asthma and having extensive wheezing again. She was then restarted on Solu-Medrol which was tapered off slowly until final discharge at white time, 24 hours prior to discharge, she was tolerating high-dose prednisone 15 mg. She continued to show good results. Labs were stable. She has no chest pain, no abnormal rhythms on the director of cardiac cath lab and it was felt she had finally progressed to a point where she was clinically able to be discharged and continue with outpatient management. PLAN: Ms. Castillo is discharged on 11/05/17 with instructions to followup with Dr. Mclain and Dr. Roth, her felt washing machine tender. She was to call his office on Tuesday to discuss appointment. She was encouraged to increase activity as tolerated and to resume her home medications as previously directed. She was to take her new prescriptions as instructed and encouraged to return to the hospital or call Dr. Mclain office should she had any return of symptoms or other concerning symptoms. Discharge Diet: Regular. Activities: Increase as tolerated. New medications at discharge included: 1. Albuterol sulfate nebs 2.5 every 4 hours as needed. 2. Xopenex 1.25 mg 4 times a day, #60. 3. Guaifenesin 600 mg twice a day. 4. Prednisone tapered dose, 10 mg tablets with #94 tablets with instructions to taper 60 mg x4 days and 10 mg thereafter until she was on 10 mg.with each day by 3 days. No other antibiotics were continued at discharge and she had finished completion of azithromycin and actually had 7 days worth of Rocephin. Condition on discharge was stable and improved. #[id number] [facility]
== END 2017-11-05 12:00 | disposition home or self-care (01) | DRG 191 ==
LOC: ER 12:46 → MS 14:40
PROVIDERS: ADMIT Family Medicine; ATTEND Nurse Practitioner Family
DX: J44.1 Chronic obstructive pulmonary disease with (acute) exacerbation (principal); K50.90 Crohn's disease, unspecified, without complications; I10 Essential (primary) hypertension; E78.5 Hyperlipidemia, unspecified; K21.9 Gastro-esophageal reflux disease without esophagitis; I25.10 Atherosclerotic heart disease of native coronary artery without angina pectoris; M81.0 Age-related osteoporosis without current pathological fracture; G30.9 Alzheimer's disease, unspecified; F02.80 Dementia in other diseases classified elsewhere, unspecified severity, without behavioral disturbance, psychotic disturbance, mood disturbance, and anxiety; E66.9 Obesity, unspecified; F41.8 Other specified anxiety disorders; I08.1 Rheumatic disorders of both mitral and tricuspid valves; K27.9 Peptic ulcer, site unspecified, unspecified as acute or chronic, without hemorrhage or perforation; D50.9 Iron deficiency anemia, unspecified; Z68.32 Body mass index [BMI] 32.0-32.9, adult; Z99.81 Dependence on supplemental oxygen; Z79.52 Long term (current) use of systemic steroids; Z85.3 Personal history of malignant neoplasm of breast; Z79.51 Long term (current) use of inhaled steroids; Z79.891 Long term (current) use of opiate analgesic; Z88.6 Allergy status to analgesic agent; Z87.01 Personal history of pneumonia (recurrent)

== ENCOUNTER → 2018-02-08 | Outpatient (CLI) | payer MEDICARE, OTHER ==
--- NOTE | 2018-02-08 16:54 | US ---
EXAM DESCRIPTION: Breast,Left: Ultrasound CLINICAL HISTORY: 77 yearsFemaleABNORMAL MAMMOGRAM prior left breast cancer with treatment. COMPARISON: Digital diagnostic mammogram left breast on the same visit. Other TECHNIQUE: Transcutaneous scanning of the left breast utilizing gant-scale and Doppler modes. Scanning performed by the absorption plant operator helper with observation by Dr. Farley. FINDINGS: Scanning lower inner quadrant left breast with emphasis on the 830 clock sector. Also scanning 6 to 2 cm from the nipple. Heterogeneous fibroglandular and fatty tissues with minimal architectural changes consistent with scar tissue in the region of breast cancer treatment. Circumscribed hypoechoic mass measuring 4.7 x 6.7 mm with central echogenicity consistent with a lymph node.. No abnormal distinct solid mass and no distinct cyst. No parenchymal edema or large calcifications. Minimal scarring of the overlying skin. No abnormal vascularity. IMPRESSION: 1. Bi-Rads Category 2: Benign. 2. Please refer to digital diagnostic left breast mammographic examination and report on this visit. The FINDINGS and the FOLLOW-UP plan were reviewed in person with the patient after the examination. Written communication explaining the IMPRESSION and FOLLOW-UP will be mailed to the patient and referring care provider. Electronically signed by: Fahad Farley MD 02/08/2018 4:53 PM CDT
--- NOTE | 2018-02-09 13:08 | MAM ---
EXAM DESCRIPTION: 3D Diagnostic, Left: Digital Mammography CLINICAL HISTORY: 77 yearsFemaleABNORMAL MAMMOGRAM . Prior breast cancer anterior left breast lower inner quadrant.. COMPARISON: prior. No prior reports available.. TECHNIQUE: Left LM projection full-field images, digital mammographic tomosynthesis technique. Full-field left MLO 2-D technique. CAD not utilized. FINDINGS: The breast parenchymal density pattern is: Scattered areas of fibroglandular density. No nipple retraction scattered solitary microcalcifications. Scattered vascular calcifications. Stable skin thickening inferior and medial left breast. Architectural distortion is again noted. No mass density. No abnormal calcifications. Ultrasound: Scanning lower inner quadrant left breast with emphasis on the 830 clock sector. Also scanning 6 to 2 cm from the nipple. Heterogeneous fibroglandular and fatty tissues with minimal architectural changes consistent with scar tissue in the region of breast cancer treatment. Circumscribed hypoechoic mass measuring 4.7 x 6.7 mm with central echogenicity consistent with a lymph node.. No abnormal distinct solid mass and no distinct cyst. No parenchymal edema or large calcifications. Minimal scarring of the overlying skin. No abnormal vascularity. IMPRESSION: Benign exam. BIRAD CATEGORY: 2 BENIGN FINDINGS. RECOMMENDATIONS: FOLLOW UP: Return to routine digital bilateral screening, one year interval from January 2018. The FINDINGS and the FOLLOW-UP plan were reviewed in person with the patient after the examination. Written communication explaining the IMPRESSION and FOLLOW-UP will be mailed to the patient and referring care provider. According to the [employer], yearly mammograms are recommended starting at age 40 and continuing as long as a woman is in good health. Any breast change noted on a breast self-exam should be reported promptly to the patient's healthcare provider. Breast MRI is recommended for women with an approximately 20-25% or greater lifetime risk of breast cancer, including women with a strong family history of breast or ovarian cancer and women who have been treated for Hodgkin's disease. A negative mammographic report should not delay tissue diagnosis in patients with significant clinical history or physical findings. Extremely dense breast tissue limits the sensitivity of digital mammography. Electronically signed by: Fahad Farley MD 02/09/2018 1:06 PM CDT
== END ==
LOC: US 14:30
PROVIDERS: ATTEND Family Medicine
DX: R92.8 Other abnormal and inconclusive findings on diagnostic imaging of breast (principal)
CPT/HCPCS: 76641; 77065; G0279

== ENCOUNTER 2018-05-24 01:17 | Observation (INO) | payer MEDICARE, OTHER ==
--- NOTE | 2018-05-24 01:40 | CT ---
EXAM: CT head without contrast. INDICATION: Confusion. TECHNIQUE: Contiguous axial CT images of the brain. Intravenous contrast: Absent. DLP 859 mGy-cm. This exam was performed according to our departmental dose-optimization program, which includes automated exposure control, adjustment of the mA and/or kV according to patient size and/or use of iterative reconstruction technique. COMPARISON: None. FINDINGS: Subcutaneous: Unremarkable. No acute intracranial hemorrhage. No midline shift. No mass effect. Ventricles: No hydrocephalus. Barrow-white differentiation preserved. Paranasal sinuses/mastoid air cells: Visualized portions are aerated. Bones/orbits: Visualized portions are unremarkable. IMPRESSION: 1. No CT evidence of acute intracranial hemorrhage. Electronically signed by: Garrett Cosby MD 05/24/2018 1:39 AM ROBOT PROGRAMMER Workstation: [id number]
[2018-05-24] MEDS ORDERED: ONDANSETRON ODT 8 MG TAB SL ONE (02:36)
[2018-05-24] MEDS ORDERED: MECLIZINE HCL 12.5 MG TAB PO ONE (02:36)
[2018-05-24] MEDS ORDERED: MECLIZINE HCL 12.5 MG TAB ONE (02:37)
[2018-05-24] MEDS ORDERED: ONDANSETRON ODT 8 MG TAB ONE (02:38)
--- NOTE | 2018-05-24 02:41 | RAD ---
EXAM DESCRIPTION: Chest,1 View CLINICAL HISTORY: 78 years Female, dyspnea COMPARISON: Chest x-ray November 04, 2017 FINDINGS: No consolidation. No pneumothorax. No significant pleural effusion. Cardiac silhouette appears moderately enlarged. Aortic atherosclerosis is present. Moderate size hiatal hernia suggested. Osseous structures are unremarkable. IMPRESSION: No acute findings. Electronically signed by: Benigno Higgins MD 05/24/2018 2:40 AM TRIPLE AIR VALVE TESTER
--- NOTE | 2018-05-24 02:43 | RAD ---
CLINICAL HISTORY: fall with hip pain COMPARISON: None. TECHNIQUE: XR HIP 2 OR MORE VIEWS 05/24/2018 1:58 AM NEWSPAPER WRITER FINDINGS: There is no fracture. There is moderate left hip degenerative narrowing. Soft tissues are unremarkable. IMPRESSION: No acute osseous findings. Electronically signed by: Paul Kaba MD 05/24/2018 2:42 AM NEWSPAPER WRITER
--- NOTE | 2018-05-24 02:46 | CT ---
CLINICAL HISTORY: fall with back pain COMPARISON: None. TECHNIQUE: CT LUMBAR SPINE WITHOUT IV CONTRAST on 05/24/2018 1:58 AM RESTAURANT WORKER This exam was performed according to our departmental dose-optimization program, which includes automated exposure control, adjustment of the mA and/or kV according to patient size and/or use of iterative reconstruction technique. FINDINGS: There is no acute fracture. There is grade 1 anterolisthesis of L4 on L5. There is grade 1 retrolisthesis of L5 on S1. There is moderate lower lumbar facet arthritis. There is vacuum disc phenomenon at L4-5 and L5-S1. There is mild T12 compression deformity. There is minimal L1 compression deformity anteriorly. Soft tissues are unremarkable. IMPRESSION: Old fracture deformities of T12 and L1. No definite acute fracture. Electronically signed by: Paul Kaba MD 05/24/2018 2:45 AM RESTAURANT WORKER
--- NOTE | 2018-05-24 03:42 | ED.PDOC ---
History of Present Illness - General Chief Complaint: Neuro Symptoms/Deficits Stated Complaint: altered mental status Time Seen by Provider: 05/24/18 01:45 Source: patient, Vital Signs reviewed, family Exam Limitations: no limitations - History of Present Illness Initial Comments: Was using her walker to ambulate when she suddenly developed acute pain to both knees followed by numbness & weakness from the knees down & then fell on her left hip. Also with worsening of her chronic back pain. No head injury, no loss of bowel or bladder control. She describes that she couldn't move her legs at all at the time because they were weak & it hurt her knees to do so. She says she is somewhat better now. Her family reports that she was also confused. No previous episodes. Timing/Duration: 1 hour Severity: severe Improving Factors: nothing Worsening Factors: nothing Associated Symptoms: weakness Allergies/Adverse Reactions: Allergies NSAIDs Allergy (Verified 10/28/17 13:10) Home Medications: Ambulatory Orders Calcium Carbonate 600 mg PO DAILY 10/21/13 Simvastatin [Zocor] 20 mg PO HS 10/21/13 Cyanocobalamin Inj [Vitamin B-12 Inj] 1,000 mcg IM MONTHLY 04/13/17 Denosumab [Prolia] 60 mg SC .[id number] 04/13/17 Escitalopram Oxalate [Lexapro] 20 mg PO BEDTIME 04/13/17 Ferrous Gluconate [Fergon] 27 mg PO DAILY 04/13/17 Letrozole 2.5 mg PO DAILY 04/13/17 Montelukast [Singulair] 10 mg PO BEDTIME 04/13/17 Tramadol-Acetaminophen [Tramadol Hydrochloride/AC 37.5-325 mg] 1 tab PO Q4H PRN 04/13/17 Cholecalciferol [Vitamin D-3] 2,000 unit PO DAILY 09/05/17 Hyoscyamine Sulfate [Levsin] 0.125 mg PO DAILY PRN 09/05/17 Magnesium Oxide 400 mg PO BID 09/05/17 Dexlansoprazole [Dexilant] 60 mg PO DAILY 10/28/17 Lamotrigine 25 mg PO BEDTIME 10/28/17 Ranitidine HCl 150 mg PO DAILY 10/28/17 Albuterol Sulfate Nebs [Proventil Nebs] 2.5 mg INH Q4H PRN #30 vial 11/05/17 Levalbuterol HCl [Xopenex] 1.25 mg IN QID #60 neb 11/05/17 predniSONE [Prednisone] See Taper PO DAILY #94 tab 11/05/17 BuPROPion XL [Wellbutrin XL] 150 mg PO DAILY 05/24/18 Donepezil Hydrochloride [Donepezil HCl] 10 mg PO DAILY 05/24/18 Memantine [Namenda] 10 mg PO DAILY 05/24/18 Zolpidem Tartrate [Ambien] 10 mg PO BEDTIME PRN 05/24/18 Review of Systems - Review of Systems Constitutional: States: see HPI EENTM: States: no symptoms reported, other - has had a recent URI Respiratory: States: no symptoms reported Cardiology: States: no symptoms reported Gastrointestinal/Abdominal: States: no symptoms reported Genitourinary: States: dysuria - mild Musculoskeletal: States: see HPI, back pain - chronic but feels worse. Denies: neck pain Skin: States: no symptoms reported Neurological: States: see HPI, numbness, tingling - to both legs from the knees down, weakness. Denies: headache Endocrine: States: no symptoms reported Hematologic/Lymphatic: States: no symptoms reported Past Medical History (General) - Patient Medical History Hx Seizures: No Hx Stroke: No Hx Dementia: Yes Hx Asthma: Yes Hx of COPD: Yes Hx Cardiac Disorders: - A-fib Hx Congestive Heart Failure: Yes Hx Pacemaker: No Hx Hypertension: Yes Hx Thyroid Disease: Yes Hx Diabetes: No Hx Gastroesophageal Reflux: Yes Hx Renal Disease: No Hx Cancer: Yes Hx of HIV: No Hx Hepatitis C: No Hx MRSA: No Surgical History: appendectomy, cholecystectomy, tonsillectomy, Hysterectomy - Vaccination History Hx Tetanus, Diphtheria Vaccination: No Hx Influenza Vaccination: Yes Hx Pneumococcal Vaccination: Yes - 2016 - Social History Hx Tobacco Use: No Hx Chewing Tobacco Use: No Hx Alcohol Use: No Hx Substance Use: No Hx Substance Use Treatment: No Hx Depression: Yes Hx Physical Abuse: No Hx Emotional Abuse: No Hx Suspected Abuse: No - Female History Patient : No Family Medical History - Family History Mother Family History: Unknown Living Status: Hx Family Asthma: Yes - parents Hx Family Congestive Heart Failure: Yes Hx Family Hypertension: Yes Hx Family Stroke: Yes - Mother Age of Onset (years of age): 88 Hx Cardiac Disease: Yes - daddy Mass [place] Age of Onset (years of age): 66 Hx Family Diabetes: No Hx Family Cancer: Yes - breast-mom Physical Exam - Physical Exam General Appearance: Alert, Comfortable, No apparent distress Eye Exam: bilateral normal Ears, Nose, Throat: hearing grossly normal Neck: supple, normal inspection Respiratory: lungs clear, normal breath sounds, no respiratory distress, no accessory muscle use Cardiovascular/Chest: normal peripheral pulses, regular rate, rhythm, no JVD, no murmur Gastrointestinal/Abdominal: non tender, soft, no pulsatile mass Back Exam: normal inspection, other - able to hold each leg up off the bed without drift, can push herself up in the bed using her legs & turned onto her right side without aid. Her back is diffusely tender over the lumbar region. Extremity: normal range of motion, non-tender, normal inspection, normal capillary refill Neurologic: counter helper II-XII nml as tested, alert, normal mood/affect, oriented x 3, sensory deficit - subjective altered sensation to her legs; I detect no weakness but more a hesitancy to use her legs. Distractable. Skin Exam: normal color, warm/dry Progress - Progress Progress: 05/24/18 03:40 149/72. Sitting upright now. Says she is asymptomatic & back to her baseline. The etiology of her symptoms are unclear but the family is concerned she may have had a TIA. She did have "vertigo" & nausea earlier & the nurse said she was requesting meclizine as that helps. 05/24/18 04:02 05/24/18 04:28 Late note: nurse reports that the pt was able to get up to the bedside commode with minimal assistance earlier. - Results/Orders Results/Orders: Hgb 12 WBC 7 Elev BUN/Cr ratio urine SG elevated, trace markers for UTI Troponin nml - EKG/XRAY/CT EKG: Sinus - NSR @ 76; nml axis, intervals, ST segments & T waves, no ST T wave changes XRAY: chest - nml CT Ordered: Yes - head & L spine = no acute process - Consult/PCP Time Called: 04:08 Consult/PCP: Mickey Departure - Departure Clinical Impression: Weakness, Confusion, Dehydration Time of Disposition: 04:10 Condition: Good Home Medications: Ambulatory Orders Calcium Carbonate 600 mg PO DAILY 10/21/13 Simvastatin [Zocor] 20 mg PO HS 05/18/14 Cyanocobalamin Inj [Vitamin B-12 Inj] 1,000 mcg IM MONTHLY 04/13/17 Denosumab [Prolia] 60 mg SC .[id number] 04/13/17 Escitalopram Oxalate [Lexapro] 20 mg PO BEDTIME 04/13/17 Ferrous Gluconate [Fergon] 27 mg PO DAILY 04/13/17 Letrozole 2.5 mg PO DAILY 04/13/17 Montelukast [Singulair] 10 mg PO BEDTIME 04/13/17 Tramadol-Acetaminophen [Tramadol Hydrochloride/AC 37.5-325 mg] 1 tab PO Q4H PRN 04/13/17 Cholecalciferol [Vitamin D-3] 2,000 unit PO DAILY 09/05/17 Hyoscyamine Sulfate [Levsin] 0.125 mg PO DAILY PRN 09/05/17 Magnesium Oxide 400 mg PO BID 09/05/17 Dexlansoprazole [Dexilant] 60 mg PO DAILY 10/28/17 Lamotrigine 25 mg PO BEDTIME 10/28/17 Ranitidine HCl 150 mg PO DAILY 10/28/17 Albuterol Sulfate Nebs [Proventil Nebs] 2.5 mg INH Q4H PRN #30 vial 11/05/17 Levalbuterol HCl [Xopenex] 1.25 mg IN QID #60 neb 11/05/17 predniSONE [Prednisone] See Taper PO DAILY #94 tab 11/05/17 BuPROPion XL [Wellbutrin XL] 150 mg PO DAILY 05/24/18 Donepezil Hydrochloride [Donepezil HCl] 10 mg PO DAILY 05/24/18 Memantine [Namenda] 10 mg PO DAILY 05/24/18 Zolpidem Tartrate [Ambien] 10 mg PO BEDTIME PRN 05/24/18 Decision To Admit - Decistion To Admit Decision to Admit Reason: Admit from ER Decision to Admit Date: 05/24/18 Decision to Admit Time: 04:10
--- NOTE | 2018-05-24 04:50 | HP ---
SUPERVISING PHYSICIAN: Socrates Mclain M.D. CHIEF COMPLAINT: Possible transient ischemic attack. HISTORY OF PRESENT ILLNESS: Ms. Castillo is an 78 year-old female patient that presented to the E. R. early last night after she had what her daughter described as a possible transient ischemic attack. She was ambulating and had the sudden development of weakness and some numbness to her lower extremities and fell, but her daughter was able to catch her before she actually contacted the ground. The daughter notes that the symptoms were transient about 5 minutes and there was actually a time during that period that she was unable to communicate verbally. She has no history of transient ischemic attacks but has a history of atrial fibrillation in the past and is not on any antiplatelets due to allergies to NSAIDs from Crohn's disease and complications. In the E. R. she had a CT of the head which showed to be without any acute findings. She also had a CT of the lumbar spine due to chronic back pain and there was note of old fracture deformities in T12 and L1 but no acute fractures. She also had a hip x-ray which was without any acute findings. Laboratory studies showed a normal white count with a slight differential, but hemoglobin was 12, hematocrit 37.2. Chemistries showed a mildly elevated BUN at 24, creatinine was normal at 0.9. Carbon dioxide was slightly elevated at 32. All other electrolytes were normal. Magnesium 2.2, calcium 9.7. Liver functions were all within normal limits. Troponin was 0.03. Urinalysis showed a trace of blood with trace leukocyte esterase. Microscopic showing 3 to 5 RBCs, 5 to 10 WBCs, 3 to 5 epithelials and rare bacteria. The patient was kept in the E. R. and attempted at rehydration as the E. R. physician felt that maybe the patient had actually had some symptoms secondary to dehydration, however given the report from the daughter and the question of TIA the patient is now going to be placed in observation for further neurological assessments and further evaluation. She was placed in observation in stable condition. PAST MEDICAL HISTORY: 1. Coronary artery disease. 2. Hyperlipidemia. 3. Hypertension. 4. Asthma. 5. Chronic obstructive pulmonary disease. 6. Mild mitral and tricuspid regurgitation with no current echocardiogram. 7. Crohn's disease on chronic steroids. 8. Peptic ulcer disease. 9. Osteoporosis. 10. Iron-deficiency anemia. 11. History of breast cancer in 2013 with post surgical resection. 12. Gastroesophageal reflux disease. 13. Dementia. PAST SURGICAL HISTORY: 1. Breast surgery. 2. Appendectomy. 3. Tonsillectomy and adenoidectomy. 4. Tubal ligation. 5. Bladder suspension. 6. Cholecystectomy. 7. Hysterectomy. 8. Thyroidectomy. 9. Bilateral cataract removal. CURRENT MEDICATIONS: 1. Trelegy ellipta 100-62.5 - 25, one puff every day. 2. Wellbutrin 150 mg daily. 3. Proventil nebs 2.5 mg inhaled every 4 hours and as needed. 4. Calcium carbonate 600 mg b.i.d. 5. Vitamin D3, 2,000 units daily. 6. Dexilant 60 mg at bedtime. 7. Vitamin B12 injections 1,000 mcg monthly. 8. Lexapro 10 mg daily. 9. Lamotrigine 200 mg at bedtime. 10. Levsin 0.125 mg as needed. 11. Fergon 27 mg daily. 12. Xopenex 1.25 mg every 4 hours as needed. 13. Letrozole 2.5 mg daily. 14. Mag oxide 400 mg daily. 15. Zocor 20 mg at bedtime. 16. Ranitidine 150 mg daily. 17. Singulair 10 mg at bedtime. 18. Tylenol 325 mg every 4 hours as needed for pain. 19. Tramadol 50 mg every 4 hours as needed for pain. 20. Ambien 10 mg at bedtime. 21. Prednisone 5 mg daily. 22. Donepezil 10 mg daily. 23. Namenda 10 mg daily. 24. Prolia 60 mg every 6 months. ALLERGIES: NSAIDs RESULTING IN GI BLEED SECONDARY TO CROHN'S COMPLICATIONS. FAMILY HISTORY: Father from heart disease. Mother had a history of breast cancer and heart disease. SOCIAL HISTORY: The patient has never smoked but was exposed to many years of secondary smoke from her . She denies any illicit drug use or alcohol use. She lives in [place], [place] and is . REVIEW OF SYSTEMS: Negative for any chills, fever, unexplained weight loss or gain. HEENT: Negative for headache, sore throat, nasal congestion, ear aches. RESPIRATORY: Negative for any shortness of breath, wheezing, cough. CARDIOVASCULAR: Negative for any chest pains, edema, palpitations. Positive for near syncopal episode. GASTROINTESTINAL: Negative for any abdominal pains, nausea, vomiting or diarrhea. GENITOURINARY: Positive for dysuria. Negative for hematuria or polyuria. NEUROLOGIC: Negative for any ataxia or dizziness, headaches or seizures. Positive for near syncopal episodes. PHYSICAL EXAMINATION: VITAL SIGNS: In the E. R. on admission showed temperature 99.0, pulse 85, blood pressure was showing to be hypertensive up to 185/105 with respirations 20, satting 95% on 2 liters nasal cannula. On admission to the Medical/Surgical floor, blood pressure was showing at 148/79. Weight is 110.0 kg. GENERAL: The patient appears to be well hydrated, well nourished in no acute distress. She is alert. HEENT: Tympanic membranes are clear bilaterally. Oropharynx is pink and moist without any lesions. NECK: Supple, non-tender with full range of motion. No jugular venous distention. CHEST: Lungs were clear throughout, just slightly diminished towards the bases. CARDIOVASCULAR: Regular rate and rhythm without appreciable murmurs, gallops, or rubs with EKG showing normal sinus rhythm. BACK: Showed to be atraumatic on inspection but tender overlying the lumbar region but no obvious bruising. EXTREMITIES: She is able to move all extremities ad ruddy. No clubbing, cyanosis or edema. NEUROLOGIC: Cranial nerves II-XII are grossly intact. Facial features were symmetrical. Extraocular movements are within normal limits. No notable nystagmus. No reported neuro or sensory deficits. She is alert and oriented times three. SKIN: Normal color. Warm and dry. No lesions or rashes. LABORATORY: White count 7,600, hemoglobin 12, hematocrit 37.2, platelet count 213,000. Differential shows a slight left shift. Coagulation studies showed normal PT and PTT. Chemistries showed normal electrolytes. Potassium 4.4, carbon dioxide was slightly elevated at 32, BUN 24, creatinine 0.96, calcium 9.7, magnesium 2.2. Liver functions were all within normal limits. Troponin is 0.03. Urinalysis showed trace lysed blood with trace leukocyte esterase. Microscopic showed rare bacteria, 3 to 5 epithelials, 5 to 10 WBCs, 3 to 5 RBCs. MICROBIOLOGY: Urine culture is pending RADIOLOGY: She had a head CT, lumbar CT and hip x-ray all without any acute findings. Chest x-ray single view chest showed no acute findings as well. Carotid artery study is pending. Echocardiogram recommended on discharge. EKG showed normal sinus rhythm with no ST or T wave changes. ASSESSMENT: 1. Near syncopal episode with concern for possible transient ischemic attack requiring close neurological monitoring and further evaluation with the patient not currently on any antiplatelets but on Zocor. 2. Urinary tract infection with cultures pending with the patient started on antibiotics. 3. History of asthma without any signs of current exacerbation. 4. Hypertension showing to be hypertensive on admission possibly due to transient ischemic attack now showing to be controlled without any acute intervention. 5. Hyperlipidemia on Zocor. 6. History of moderate mitral and tricuspid regurgitation with no echocardiogram available for review. Will need an echocardiogram at discharge in followup as an outpatient. 7. History of gastroesophageal reflux disease with complications from NSAIDs. 8. Coronary artery disease. 9. History of Crohn's disease on chronic steroids. 10. Osteoporosis. 11. Alzheimer's disease with mild dementia. 12. Obesity with a body mass index of 34.8. 13. Depression and anxiety on multiple medications. PLAN: The patient is placed in observation for further neurological monitoring and cardiac monitoring as well. Will get a carotid study. She will be on DVT prophylaxis currently on Lovenox. Will hold off on antiplatelets until I can talk to Dr. Mclain regarding her NSAIDs allergy to clarify possible options. Will anticipate discharging tomorrow if no further evidence of any complications. Once discharged she will certainly need close followup as an outpatient and recommendation for an echocardiogram. Until she can transition to outpatient management will continue to monitor and treat as needed. #[id number] [facility]
[2018-05-24] MEDS ORDERED: SODIUM CHLORIDE 0.9% (FLUSH) 10 ML SYG IV PRN (06:53)
[2018-05-24] MEDS ORDERED: ACETAMINOPHEN 325 MG TAB PO PRN (06:55)
[2018-05-24] MEDS ORDERED: traMADol HCL 50 MG TAB PO PRN (06:55)
[2018-05-24] MEDS ORDERED: LEVALBUTEROL NEBS 1.25 MG/3 ML VIAL NEB PRN (06:55)
[2018-05-24] MEDS ORDERED: ALBUTEROL SULFATE 2.5 MG/3 ML VIAL NEB PRN (06:55)
[2018-05-24] MEDS ORDERED: NON-FORMULARY MEDICATION 1 EA MIS (Denosumab [Prolia] 60 MG) SC SCH (07:00)
[2018-05-24] MEDS ORDERED: CYANOCOBALAMIN INJ 1,000 MCG/ML INJ IM SCH (07:00)
[2018-05-24] MEDS ORDERED: IV SET AND CAP CHANGE INJ INJ SCH (07:00)
[2018-05-24] MEDS: ENOXAPARIN SODIUM 40 MG/0.4 ML SYG SUBCU SCH (07:32)
[2018-05-24] MEDS: SODIUM CHLORIDE 0.45% 1000ML 1,000 ML IV PRN ×3 (07:33→19:00)
[2018-05-24] MEDS: Wellbutrin XL 150 MG TAB PO SCH (09:38)
[2018-05-24] MEDS: FERROUS GLUCONATE 325 MG TAB PO SCH (09:38)
[2018-05-24] MEDS: CALCIUM CARBONATE (ANTACID) 500 MG CHEWABLE TAB PO SCH ×2 (09:38→20:04)
[2018-05-24] MEDS: DONEPEZIL HCL 5 MG TAB PO SCH (09:38)
[2018-05-24] MEDS: MAGNESIUM OXIDE 400 MG TAB PO SCH (09:39)
[2018-05-24] MEDS: predniSONE 10 MG TAB PO SCH (09:39)
[2018-05-24] MEDS: ESCITALOPRAM 10 MG TAB PO SCH (09:39)
[2018-05-24] MEDS: CHOLECALCIFEROL 2,000 IU TAB PO SCH (09:39)
[2018-05-24] MEDS: MEMANTINE 10 MG TAB PO SCH (09:39)
[2018-05-24] MEDS ORDERED: SODIUM CHL 0.9% 50ML MIN-BAG+ 50 ML IVPB ONE (09:49)
[2018-05-24] MEDS ORDERED: cefTRIAXone SODIUM 1 GM VIAL ONE (09:49)
[2018-05-24] MEDS: cefTRIAXone SODIUM 1 GM in SODIUM CHL 0.9% 50ML MIN-BAG+ 50 ML IVPB SCH (09:50)
[2018-05-24] MEDS: NON-FORMULARY MEDICATION 1 EA MIS (Fluticasone-Umeclidinium-Vilan [Trelegy Ellipta 100-62. PO SCH (11:10)
--- NOTE | 2018-05-24 15:34 | US ---
Procedure: US CAROTID DOPPLER BILATERAL Exam Date: 05/24/2018 Ordering Provider: Miguel Britt NP Clinical Indication: TIA Comparison: None TECHNIQUE : Real-time cerebrovascular ultrasonography was obtained from sternal notch to the angle of the mandible bilaterally utilizing gant scale, color flow and spectral Doppler analysis. Systolic velocity ratios were calculated for internal carotid artery to common carotid artery bilaterally. FINDINGS: RIGHT CAROTID BIFURCATION: Mild atherosclerotic plaque. Peak systolic and end-diastolic velocities in the right internal carotid artery are 79 and 20 cm/s. Internal carotid/common carotid ratio is 1.1. Right vertebral flow is antegrade. LEFT CAROTID BIFURCATION: Mild atherosclerotic plaque. Peak systolic and end-diastolic velocities in the left internal carotid artery are 107 and 18 cm/s. Internal carotid/common carotid ratio is 1.3. Left vertebral flow is antegrade. IMPRESSION: 1. Mild atherosclerotic plaque in each carotid bulb and ICA origin. 2. There is no significant stenosis (less than 50%) at either ICA origin. 3. Bilateral antegrade vertebral artery flow. Electronically signed by: Nico Quiroz MD 05/24/2018 3:33 PM [facility]
[2018-05-24] MEDS: NON-FORMULARY MEDICATION 1 EA MIS (Letrozole [Letrozole] 2.5 MG) PO SCH (18:17)
[2018-05-24] MEDS ORDERED: MONTELUKAST 10 MG TAB PO SCH (21:00)
[2018-05-24] MEDS ORDERED: lamoTRIgine 25 MG TAB PO SCH (21:00)
[2018-05-24] MEDS ORDERED: SIMVASTATIN 20 MG TAB PO SCH (21:00)
[2018-05-25] MEDS: SODIUM CHLORIDE 0.45% 1000ML 1,000 ML IV PRN (03:26)
[2018-05-25] MEDS: ENOXAPARIN SODIUM 40 MG/0.4 ML SYG SUBCU SCH (06:00)
[2018-05-25] MEDS ORDERED: OMEPRAZOLE CAP 20 MG CAP PO SCH (06:30)
[2018-05-25] MEDS ORDERED: SODIUM CHL 0.9% 50ML MIN-BAG+ 50 ML IVPB ONE (07:20)
[2018-05-25] MEDS ORDERED: cefTRIAXone SODIUM 1 GM VIAL ONE (07:21)
[2018-05-25] MEDS: Wellbutrin XL 150 MG TAB PO SCH (07:57)
[2018-05-25] MEDS: MAGNESIUM OXIDE 400 MG TAB PO SCH (07:57)
[2018-05-25] MEDS: predniSONE 10 MG TAB PO SCH (07:57)
[2018-05-25] MEDS: DONEPEZIL HCL 5 MG TAB PO SCH (07:57)
[2018-05-25] MEDS: CALCIUM CARBONATE (ANTACID) 500 MG CHEWABLE TAB PO SCH (07:57)
[2018-05-25] MEDS: ESCITALOPRAM 10 MG TAB PO SCH (07:57)
[2018-05-25] MEDS: CHOLECALCIFEROL 2,000 IU TAB PO SCH (07:57)
[2018-05-25] MEDS: FERROUS GLUCONATE 325 MG TAB PO SCH (07:59)
[2018-05-25] MEDS: NON-FORMULARY MEDICATION 1 EA MIS (Letrozole [Letrozole] 2.5 MG) PO SCH (07:59)
[2018-05-25] MEDS: cefTRIAXone SODIUM 1 GM in SODIUM CHL 0.9% 50ML MIN-BAG+ 50 ML IVPB SCH (08:07)
[2018-05-25] MEDS: MEMANTINE 10 MG TAB PO SCH (08:09)
[2018-05-25] MEDS: NON-FORMULARY MEDICATION 1 EA MIS (Fluticasone-Umeclidinium-Vilan [Trelegy Ellipta 100-62. PO SCH (08:25)
[2018-05-25] MEDS ORDERED: ASPIRIN (ENTERIC COATED) 81 MG TAB PO SCH (10:00)
[2018-05-25] MEDS ORDERED: ASPIRIN (CHEWABLE) 81 MG TAB ONE (10:09)
[2018-05-25 10:32] VITALS: BP 133/72; TEMP 98.3; O2SAT 97
--- NOTE | 2018-05-29 09:31 | DS ---
SUPERVISING PHYSICIAN: Socrates Mclain MD ADMISSION DIAGNOSIS: 1. Near syncopal episode with concern for possible transient ischemic attack requiring close neurological monitoring and further evaluation with the patient not currently on any antiplatelets but on Zocor. 2. Urinary tract infection with cultures pending with the patient started on antibiotics. 3. History of asthma without any signs of current exacerbation. 4. Hypertension showing to be hypertensive on admission possibly due to transient ischemic attack now showing to be controlled without any acute intervention. 5. Hyperlipidemia on Zocor. 6. History of moderate mitral and tricuspid regurgitation with no echocardiogram available for review. Will need an echocardiogram at discharge in followup as an outpatient. 7. History of gastroesophageal reflux disease with complications from NSAIDs. 8. Coronary artery disease. 9. History of Crohn's disease on chronic steroids. 10. Osteoporosis. 11. Alzheimer's disease with mild dementia. 12. Obesity with a body mass index of 34.8. 13. Depression and anxiety on multiple medications. DISCHARGE DIAGNOSIS: 1. Near syncopal episode probable transient ischemic attack with patient on Zocor and aspirin at discharge with needing a followup for an echocardiogram with carotids showing stenosis of both right and left ICAs less than 50%. 2. Urinary tract infection with final culture results showing 10 to 50,000 mixed urogenital alessandra per colony forming units per mil with patient on antibiotics at discharge. 3. History of asthma without any signs of exacerbation on current admission. 4. Uncontrolled hypertension on admission probably due to transient ischemic attack now showing good control without any acute interventions during hospitalization. 5. Hyperlipidemia on Zocor. 6. History of moderate mitral and tricuspid regurgitation with no current echocardiogram at time of admission. Will need one at followup. 7. History of gastroesophageal reflux disease with complications from NSAIDs. 8. Coronary artery disease. 9. History of Crohn's disease on chronic steroids. 10. Osteoporosis. 11. Alzheimer's disease with mild dementia. 12. Obesity with a body mass index of 34.8. 13. Depression and anxiety on multiple medications. REASON FOR HOSPITALIZATION: :Ms. Castillo is an 78 year-old female patient that presented to the Emergency Room early last night after she had what her daughter described as a possible transient ischemic attack. She was ambulating and had the sudden development of weakness and some numbness to her lower extremities and fell, but her daughter was able to catch her before she actually contacted the ground. The daughter notes that the symptoms were transient about 5 minutes and there was actually a time during that period that she was unable to communicate verbally. She has no history of transient ischemic attacks but has a history of atrial fibrillation in the past and is not on any antiplatelets due to allergies to NSAIDs from Crohn's disease and complications. In the Emergency Room she had a CT of the head which showed to be without any acute findings. She also had a CT of the lumbar spine due to chronic back pain and there was note of old fracture deformities in T12 and L1 but no acute fractures. She also had a hip x-ray which was without any acute findings. Laboratory studies showed a normal white count with a slight differential, but hemoglobin was 12, hematocrit 37.2. Chemistries showed a mildly elevated BUN at 24, creatinine was normal at 0.9. Carbon dioxide was slightly elevated at 32. All other electrolytes were normal. Magnesium 2.2, calcium 9.7. Liver functions were all within normal limits. Troponin was 0.03. Urinalysis showed a trace of blood with trace leukocyte esterase. Microscopic showing 3 to 5 RBCs, 5 to 10 WBCs, 3 to 5 epithelials and rare bacteria. The patient was kept in the Emergency Room and attempted at rehydration as the Emergency Room physician felt that maybe the patient had actually had some symptoms secondary to dehydration, however given the report from the daughter and the question of TIA the patient is now going to be placed in observation for further neurological assessments and further evaluation. She was placed in observation in stable condition. LABORATORY: Normal white count 7,600, hemoglobin 12, hematocrit 37.2, platelet count 213,000. Differential shows just a mild left shift. Coagulation studies showed normal PT and PTT. Chemistries showed normal electrolytes. Carbon dioxide was slightly elevated at 32, BUN 24, creatinine 0.96, calcium 9.7, magnesium 2.2. Liver functions were all within normal limits. Troponin is 0.03. Lipid panel showed 208 cholesterol with 113 LDL and 75 HDL. Urinalysis showed trace of leukoesterase and trace lysed blood. Microscopic showed 3 to 5 RBCs, 5 to 10 WBCs, 3 to 5 epithelials and rare bacteria. MICROBIOLOGY: Urine culture was submitted and showed normal urogenital alessandra on final report. RADIOLOGY: She had a head CT, lumbar spine, all without acute findings. She also had an x-ray of the hip which was without any acute findings. Please see those reports for full details. She then had a carotid artery ultrasound done on 05/24 and per radiology interpretation there was mild atherosclerotic plaque in each carotid bulb and ICA origin. There was no significant stenosis, less than 50%, at either ICA origins with bilateral anterior basilar vertebral arteries. Please see the carotid ultrasound report for details. HOSPITAL COURSE: Ms. Castillo was admitted as noted on 05/24 with concerns for possible transient ischemic attack as she had a syncopal episode at home. She was found to be without any acute findings on CT studies and x-rays. She was somewhat hypertensive on admission but was allowed to be clinically hypertensive given it was felt she might be having a transient ischemic attack which did resolve itself without any intervention. She was started on antibiotics in the Emergency Room for possible urinary tract infection with Rocephin. The patient was reporting some dysuria as well, although cultures came back to be normal urogenital alessandra. The patient was ambulating as well as had a tilt and vital signs done prior to discharge and had no recurrence of syncope and showed no significant change on her vital signs during the tilt study. It was felt she was well enough to continue outpatient management and was discharged. PLAN: The patient was discharged on 05/25/18 with instructions to followup with Dr. Mclain as scheduled on 06/07/18 at 3:30 PM. She was to resume her home medications as instructed. It was suggested that she possibly needs an echocardiogram at some point to further evaluate for the transient ischemic attack which can be arranged through Dr. Mclain office. She was told to return to the hospital should she have any concerning symptoms. DISCHARGE DIET: Diabetic diet as tolerated. ACTIVITIES: Increase as tolerated. NEW MEDICATIONS AT DISCHARGE: 1. Aspirin 81 mg daily, #30. 2. Ceftin 500 mg twice a day for 5 days. No refills. All other medications prior to admission to hospitalization were continued. DISPOSITION: Patient is discharged to the care of her daughter. CONDITION ON DISCHARGE: Stable and improved. #[id number] [facility]
== END 2018-05-25 13:00 | disposition home or self-care (01) ==
LOC: ER 01:17 → MS 04:49
PROVIDERS: ADMIT Nurse Practitioner; ATTEND Nurse Practitioner Family
DX: N39.0 Urinary tract infection, site not specified (principal); B96.89 Other specified bacterial agents as the cause of diseases classified elsewhere; R55 Syncope and collapse; J45.909 Unspecified asthma, uncomplicated; I10 Essential (primary) hypertension; E78.5 Hyperlipidemia, unspecified; I34.0 Nonrheumatic mitral (valve) insufficiency; I36.1 Nonrheumatic tricuspid (valve) insufficiency; K21.9 Gastro-esophageal reflux disease without esophagitis; I25.10 Atherosclerotic heart disease of native coronary artery without angina pectoris; K50.90 Crohn's disease, unspecified, without complications; M81.0 Age-related osteoporosis without current pathological fracture; G30.9 Alzheimer's disease, unspecified; F02.81 Dementia in other diseases classified elsewhere, unspecified severity, with behavioral disturbance; E66.9 Obesity, unspecified; Z68.34 Body mass index [BMI] 34.0-34.9, adult; F41.8 Other specified anxiety disorders; M25.552 Pain in left hip; M54.5 Low back pain; R41.0 Disorientation, unspecified; E07.9 Disorder of thyroid, unspecified; I65.23 Occlusion and stenosis of bilateral carotid arteries; Z66 Do not resuscitate; Z79.51 Long term (current) use of inhaled steroids; Z79.899 Other long term (current) drug therapy; Z88.8 Allergy status to other drugs, medicaments and biological substances; Z85.3 Personal history of malignant neoplasm of breast; Z77.22 Contact with and (suspected) exposure to environmental tobacco smoke (acute) (chronic); W18.39XA Other fall on same level, initial encounter; Y92.009 Unspecified place in unspecified non-institutional (private) residence as the place of occurrence of the external cause
CPT/HCPCS: 96365; 96376; 96372 ×2; J0696 ×2; J7512 ×2; J7799 ×4; J1650 ×2; J7050 ×2; 80053; 87086; 80061; 36415 ×2; 81001; 85025; 83735; 85730; 85610; 84484; 71045; 73502; 70450; 72131; 93880; 94760 ×5; 99285; 93005

== ENCOUNTER 2018-06-20 15:04 | Emergency (ER) | payer MEDICARE, OTHER ==
[2018-06-20 15:38] VITALS: TEMP 98.7
--- NOTE | 2018-06-20 16:07 | CT ---
EXAM DESCRIPTION: Head CLINICAL HISTORY: s/p fall COMPARISON: 05/24/2018 TECHNIQUE: Multiple axial images of the head without contrast. Multiplanar reformatted images. This exam was performed according to our departmental dose-optimization program, which includes automated exposure control, adjustment of the mA and/or kV according to patient size and/or use of iterative reconstruction technique. FINDINGS: There is no CT evidence of intracranial hemorrhage, mass effect, or large territory infarction. Mild generalized volume loss. Mild patchy supratentorial white matter hypodensities. Chronic lacunar infarct in the left basal ganglia. There are no abnormal extra-axial fluid collections. Calcific plaque in the visualized arteries. There is no acute calvarial defect. The visualized paranasal sinuses and the mastoids are clear. IMPRESSION: 1. No CT evidence of an acute intracranial abnormality. If there is concern for an acute or subacute infarct, consider follow-up MRI. 2. Senescent changes. Electronically signed by: Fabrizio Hyatt MD 06/20/2018 4:06 PM PRIMARY CARE COORDINATOR
--- NOTE | 2018-06-20 16:23 | ED.PDOC ---
History of Present Illness - General Chief Complaint: Trauma Stated Complaint: s/p fall Time Seen by Provider: 06/20/18 16:12 Source: patient, family Exam Limitations: no limitations - History of Present Illness Initial Comments: Patient presents with multiple pain complaints after a fall two days ago. She normally uses a walker but tried to walk without it and fell forward, striking the left side of her face against a dresser. She denies LOC. She has pain and bruising around the left eye. She has pain in the posterior left hip and lumbar vertebrae that are constant, worse with movement, better with rest, and aching in nature. She does have chronic back pain. Her left knee is aching as well. Worse with flexion, better with rest. Right wrist is painful and bruised at the lateral aspect over the radius. It is a dull constant pain. There is mild exacerbation with movement of the wrist. No loss of sensation in the right hand. No other complaints. Timing/Duration: other - two days Severity: moderate Improving Factors: rest Worsening Factors: movement Associated Symptoms: other - as in HPI Allergies/Adverse Reactions: Allergies NSAIDs Allergy (Verified 10/28/17 13:10) Home Medications: Ambulatory Orders Calcium Carbonate 600 mg PO BID 10/21/13 Simvastatin [Zocor] 20 mg PO HS 10/21/13 Cyanocobalamin Inj [Vitamin B-12 Inj] 1,000 mcg IM MONTHLY 04/13/17 Denosumab [Prolia] 60 mg SC [id number] 04/13/17 Escitalopram Oxalate [Lexapro] 10 mg PO BEDTIME 04/13/17 Ferrous Gluconate [Fergon] 27 mg PO TID 04/13/17 Letrozole 2.5 mg PO DAILY 04/13/17 Montelukast [Singulair] 10 mg PO BEDTIME 04/13/17 Cholecalciferol [Vitamin D-3] 2,000 unit PO DAILY 09/05/17 Hyoscyamine Sulfate [Levsin] 0.125 mg PO DAILY PRN 09/05/17 Magnesium Oxide 400 mg PO BID 09/05/17 Dexlansoprazole [Dexilant] 60 mg PO BEDTIME 10/28/17 Lamotrigine 200 mg PO BEDTIME 10/28/17 Ranitidine HCl 150 mg PO DAILY 10/28/17 Donepezil Hydrochloride [Donepezil HCl] 10 mg PO BEDTIME 05/24/18 Levalbuterol HCl [Xopenex] 1.25 mg IN Q4HR PRN 05/24/18 Memantine [Namenda] 10 mg PO BID 05/24/18 Tramadol HCl 50 mg PO Q4HR PRN 05/24/18 Zolpidem Tartrate [Ambien] 10 mg PO BEDTIME PRN 05/24/18 Aspirin [Aspirin Enteric Coated Ad] 81 mg PO DAILY #30 tab 05/25/18 Albuterol Sulfate Nebs [Proventil Nebs] 2.5 mg INH QID 06/20/18 Eodprshizpg-Fuwsmggmjjui-Avzvv [Trelegy Ellipta 100-62.5-25 Mcg/INH] 1 aer IN DAILY 06/20/18 Levalbuterol Inhaler [Xopenex Hfa 45 Mcg] 2 puff INH BID 06/20/18 Potassium Chloride [K-Tab] 8 meq PO DAILY 06/20/18 Prednisone 5 mg PO DAILY 06/20/18 Tramadol-Acetaminophen [Ultracet] 1 tab PO Q4H PRN 06/20/18 Review of Systems - Review of Systems Constitutional: States: no symptoms reported EENTM: States: no symptoms reported Respiratory: States: no symptoms reported Cardiology: States: no symptoms reported Gastrointestinal/Abdominal: States: no symptoms reported Genitourinary: States: no symptoms reported Musculoskeletal: States: see HPI Skin: States: no symptoms reported Neurological: States: no symptoms reported Endocrine: States: no symptoms reported Hematologic/Lymphatic: States: no symptoms reported Past Medical History (General) - Patient Medical History Hx Seizures: No Hx Stroke: No Hx Dementia: Yes Hx Asthma: Yes Hx of COPD: Yes Hx Cardiac Disorders: Yes - Atrial fib Hx Congestive Heart Failure: Yes Hx Pacemaker: No Hx Hypertension: Yes Hx Thyroid Disease: Yes Hx Diabetes: No Hx Gastroesophageal Reflux: Yes Hx Renal Disease: No Hx Cancer: Yes - Breast Hx of HIV: No Hx Hepatitis C: No Hx MRSA: No Surgical History: appendectomy, cholecystectomy, Hysterectomy - Vaccination History Hx Tetanus, Diphtheria Vaccination: No Hx Influenza Vaccination: Yes Hx Pneumococcal Vaccination: Yes - Social History Hx Tobacco Use: Yes Hx Chewing Tobacco Use: No Hx Alcohol Use: No Hx Substance Use: No Hx Substance Use Treatment: No Hx Depression: Yes Hx Physical Abuse: No Hx Emotional Abuse: No Hx Suspected Abuse: No - Female History Patient : No Family Medical History - Family History Mother Family History: Unknown Living Status: Hx Family Asthma: Yes - parents Hx Family Congestive Heart Failure: Yes Hx Family Hypertension: Yes Hx Family Stroke: Yes - Mother Age of Onset (years of age): 88 Hx Cardiac Disease: Yes - daddy [place] Age of Onset (years of age): 66 Hx Family Diabetes: No Hx Family Cancer: Yes - breast-mom Father Living Status: Hx Family Asthma: No Hx Family Congestive Heart Failure: No Hx Family Hypertension: No Hx Family Stroke: No Hx Cardiac Disease: Yes Hx Family Diabetes: No Hx Family Cancer: No Physical Exam - Physical Exam General Appearance: Alert Eye Exam: bilateral normal Ears, Nose, Throat: normal ENT inspection Neck: non-tender, full range of motion, supple Respiratory: lungs clear, normal breath sounds Cardiovascular/Chest: normal peripheral pulses, regular rate, rhythm, no edema Gastrointestinal/Abdominal: normal bowel sounds, non tender, soft Back Exam: normal inspection, no CVA tenderness Extremity: other - left hip is mildly TTP at the posterior iliac spine. Patient has 5/5 strength to flexion and extension of the left hip as well as adduction and abduction. Left knee has a negative Tanya's sign, no bruising nor edema, and 5/5 strength to flexion/extension. Right hand has a contusion on the lateral aspect that extends from the base of the thumb to the distal third of the radius. It is mildly TTP over the distal radius. No anatomical snuffbox tenderness. 5/5 strength to flexion/extension/addduction/abduction of the right wrist and fingers. 5/5 strength to pronation and supination of the right hand. Full sensation over the entire right hand, wrist, and forearm. Capillary refill in the right nailbeds is less than 2 seconds. Neurologic: histology supervisor II-XII nml as tested, no motor/sensory deficits, alert, normal mood/affect, oriented x 3 Skin Exam: other - contusion as noted, over the left eye and right hand. Lymphatic: no adenopathy Progress - Progress Progress: 06/20/18 18:45 Laboratory Tests 06/20/18 06/20/18 06/20/18 16:34 16:34 16:34 WBC 9.8 RBC 4.31 Hgb 12.4 Hct 38.6 MCV 89.5 MCH 28.7 MCHC 32.1 L RDW 15.6 H Plt Count 223 MPV 8.1 Absolute Neuts (auto) 9.10 H Absolute Lymphs (auto) 0.30 L Absolute Monos (auto) 0.20 Absolute Eos (auto) 0.10 Absolute Basos (auto) 0.10 Neutrophils % 93.3 H Lymphocytes % 3.1 L Monocytes % 2.2 Eosinophils % 0.8 L Basophils % 0.6 PT 10.2 INR 1.02 PTT (SP) 22.8 Sodium 141 Potassium 4.8 Chloride 103 Carbon Dioxide 32 H Anion Gap 10.8 L BUN 20 H Creatinine 1.32 H BUN/Creatinine Ratio 15.2 Random Glucose 105 Serum Osmolality 284.2 Calcium 9.7 Total Bilirubin 0.6 AST 19 ALT 17 Alkaline Phosphatase 70 Serum Total Protein 6.3 L Albumin 3.7 Globulin 2.6 Albumin/Globulin Ratio 1.4 Urine Color Urine Appearance Urine pH Ur Specific [place] Urine Protein Urine Glucose (UA) Urine Ketones Urine Blood Urine Nitrite Urine Bilirubin Urine Urobilinogen Ur Leukocyte Esterase Urine RBC Urine WBC Ur Epithelial Cells Urine Bacteria Urine Mucus 06/20/18 17:00 WBC RBC Hgb Hct MCV MCH MCHC RDW Plt Count MPV Absolute Neuts (auto) Absolute Lymphs (auto) Absolute Monos (auto) Absolute Eos (auto) Absolute Basos (auto) Neutrophils % Lymphocytes % Monocytes % Eosinophils % Basophils % PT INR PTT (SP) Sodium Potassium Chloride Carbon Dioxide Anion Gap BUN Creatinine BUN/Creatinine Ratio Random Glucose Serum Osmolality Calcium Total Bilirubin AST ALT Alkaline Phosphatase Serum Total Protein Albumin Globulin Albumin/Globulin Ratio Urine Color Yellow Urine Appearance Sl cloudy Urine pH 5.5 Ur Specific [place] >= 1.030 Urine Protein Trace Urine Glucose (UA) Negative Urine Ketones Trace Urine Blood Negative Urine Nitrite Negative Urine Bilirubin Small H Urine Urobilinogen 0.2 Ur Leukocyte Esterase Negative Urine RBC 0 Urine WBC 0-1 Ur Epithelial Cells 3-5 Urine Bacteria 0 Urine Mucus Moderate Radiographs of the left knee, right hand were negative. CT of head and pelvis negative. Labs indicated that the patient was dehyrated. She received one liter NS IV and her blood pressure increase to 134/65. She was discharged with instructions to increase oral fluids. E.R. warnings given. Care instructions given. Questions were elicited and answered. The patient voiced understanding and agreement with the plan. - EKG/XRAY/CT CT Ordered: Yes Departure - Departure Clinical Impression: Dehydration, Contusion of hand, Contusion of knee, Contusion of face Disposition: Discharge to Home or Self Care Condition: Good Departure Forms: ED Discharge - Pt. Copy, Patient Portal Self Enrollment Instructions: DI for Trauma Diet: other - increase oral fluids Activity: increase activity as tolerated, other - use your walker Referrals: Socrates Mclain MD [Primary Care Provider] - 1-2 Weeks Home Medications: Ambulatory Orders Calcium Carbonate 600 mg PO BID 10/21/13 Simvastatin [Zocor] 20 mg PO HS 10/21/13 Cyanocobalamin Inj [Vitamin B-12 Inj] 1,000 mcg IM MONTHLY 04/13/17 Denosumab [Prolia] 60 mg SC [id number] 04/13/17 Escitalopram Oxalate [Lexapro] 10 mg PO BEDTIME 04/13/17 Ferrous Gluconate [Fergon] 27 mg PO TID 04/13/17 Letrozole 2.5 mg PO DAILY 04/13/17 Montelukast [Singulair] 10 mg PO BEDTIME 04/13/17 Cholecalciferol [Vitamin D-3] 2,000 unit PO DAILY 09/05/17 Hyoscyamine Sulfate [Levsin] 0.125 mg PO DAILY PRN 09/05/17 Magnesium Oxide 400 mg PO BID 09/05/17 Dexlansoprazole [Dexilant] 60 mg PO BEDTIME 10/28/17 Lamotrigine 200 mg PO BEDTIME 10/28/17 Ranitidine HCl 150 mg PO DAILY 10/28/17 Donepezil Hydrochloride [Donepezil HCl] 10 mg PO BEDTIME 05/24/18 Levalbuterol HCl [Xopenex] 1.25 mg IN Q4HR PRN 05/24/18 Memantine [Namenda] 10 mg PO BID 05/24/18 Tramadol HCl 50 mg PO Q4HR PRN 05/24/18 Zolpidem Tartrate [Ambien] 10 mg PO BEDTIME PRN 05/24/18 Aspirin [Aspirin Enteric Coated Ad] 81 mg PO DAILY #30 tab 05/25/18 Albuterol Sulfate Nebs [Proventil Nebs] 2.5 mg INH QID 06/20/18 Xxyeqrgqkip-Igqycpcfyshm-Qrlbv [Trelegy Ellipta 100-62.5-25 Mcg/INH] 1 aer IN DAILY 06/20/18 Levalbuterol Inhaler [Xopenex Hfa 45 Mcg] 2 puff INH BID 06/20/18 Potassium Chloride [K-Tab] 8 meq PO DAILY 06/20/18 Prednisone 5 mg PO DAILY 06/20/18 Tramadol-Acetaminophen [Ultracet] 1 tab PO Q4H PRN 06/20/18 Additional Instructions: Increase oral fluids. Use your walker. Follow up with your regular doctor this week for evaluation of your hydration status.
--- NOTE | 2018-06-20 17:09 | RAD ---
EXAM DESCRIPTION: Foot,Right 3 Views CLINICAL HISTORY: pain after fall COMPARISON: None. TECHNIQUE: 3 views right FINDINGS: A plantar calcaneal spurs observed. Mild intertarsal arthritis is seen. Diffuse osteopenia is detected. No fracturing is detected. IMPRESSION: Mild diffuse degenerative changes are observed. No fracturing is detected. Electronically signed by: Shai Shea MD 06/20/2018 5:08 PM [facility]
--- NOTE | 2018-06-20 17:13 | CT ---
EXAM DESCRIPTION: Pelvis CLINICAL HISTORY: 78 years Female, left hip pain and lumbar pain after fall COMPARISON: None. TECHNIQUE: Transaxial images were obtained without intravenous contrast media. Sagittal and coronal reconstruction was performed.This exam was performed according to our departmental dose-optimization program, which includes automated exposure control, adjustment of the mA and/or kV according to patient size and/or use of iterative reconstruction technique. FINDINGS: Calcific atherosclerotic changes observed in the abdominal aorta without evidence of aneurysmal dilatation. A transsacral stimulator is observed in place. Diverticulosis of the colon is observed without evidence of diverticulitis. The patient is post hysterectomy. No inguinal region abnormality is seen. No free fluid is detected. Mild degenerative changes are observed in the pubic symphysis. No hip or pelvic fracturing is detected. Degenerative changes are seen in both sacroiliac joints. Degenerative changes are also observed in the facet joints in the lower lumbar spine. IMPRESSION: Degenerative changes are observed. No fracturing is detected. Electronically signed by: Shai Shea MD 06/20/2018 5:12 PM [facility]
--- NOTE | 2018-06-20 17:20 | RAD ---
EXAM DESCRIPTION: Hand,Right 3 Views CLINICAL HISTORY: pain after fall. COMPARISON: None. TECHNIQUE: 3 views right FINDINGS: Distal interphalangeal joint arthritis is observed throughout the hand. Degenerative changes are also observed in the metacarpal carpal articulation of the first digit. Radial side arthritis is observed. There is deformity of the fifth metacarpal which is believed to be the result of a prior fracture. Minimal soft tissue calcification is observed in the radial side of the fourth digit proximally. IMPRESSION: Degenerative changes are observed throughout the hand. No acute fracturing is detected. Electronically signed by: Shai Shea MD 06/20/2018 5:19 PM [facility]
--- NOTE | 2018-06-20 17:21 | RAD ---
EXAM DESCRIPTION: Knee,Left 2 or More Views CLINICAL HISTORY: pain after fall COMPARISON: None. TECHNIQUE: 2 views left FINDINGS: Medial and lateral tibial osteophyte formation is observed. Lateral femoral osteophyte formation is noted. Mild loss of joint space is observed. The exam also reveals minimal chondrocalcinosis. No significant joint effusion is seen. Patellofemoral joint degenerative changes are observed. No fracturing is detected. IMPRESSION: Degenerative changes are observed. No fracturing is detected. Electronically signed by: Shai Shea MD 06/20/2018 5:20 PM [facility]
--- NOTE | 2018-06-20 17:25 | RAD ---
EXAM DESCRIPTION: Chest,1 View CLINICAL HISTORY: fall COMPARISON: 24 May 2018 TECHNIQUE: AP portable chest FINDINGS: Cardiomegaly is evident. The lungs are clear. No pleural fluid is seen. No pneumothorax is seen. No fracturing is detected. Degenerative changes are seen in the right shoulder. IMPRESSION: Cardiomegaly is observed without evidence of congestive heart failure. Electronically signed by: Shai Shea MD 06/20/2018 5:24 PM [employer]
[2018-06-20] MEDS: SODIUM CHLORIDE 0.9% 1000ML 1,000 ML IVS ONE (17:45)
[2018-06-20 19:04] VITALS: BP 134/86; O2SAT 99
== END 2018-06-20 19:04 | disposition home or self-care (01) ==
LOC: ER 15:04
DX: S05.12XA Contusion of eyeball and orbital tissues, left eye, initial encounter (principal); S60.221A Contusion of right hand, initial encounter; S80.02XA Contusion of left knee, initial encounter; E86.0 Dehydration; M25.552 Pain in left hip; M54.5 Low back pain; G89.29 Other chronic pain; S60.211A Contusion of right wrist, initial encounter; F03.90 Unspecified dementia, unspecified severity, without behavioral disturbance, psychotic disturbance, mood disturbance, and anxiety; J44.9 Chronic obstructive pulmonary disease, unspecified; I48.91 Unspecified atrial fibrillation; I50.9 Heart failure, unspecified; I11.0 Hypertensive heart disease with heart failure; E07.9 Disorder of thyroid, unspecified; K21.9 Gastro-esophageal reflux disease without esophagitis; F32.9 Major depressive disorder, single episode, unspecified; Z85.3 Personal history of malignant neoplasm of breast; Z87.891 Personal history of nicotine dependence; Z79.82 Long term (current) use of aspirin; Z79.899 Other long term (current) drug therapy; Z88.6 Allergy status to analgesic agent; W01.190A Fall on same level from slipping, tripping and stumbling with subsequent striking against furniture, initial encounter
CPT/HCPCS: 36415; 70450; 71045; 72192; 73130; 73560; 73630; 80053; 81001; 85025; 85610; 85730; J7030

== ENCOUNTER 2018-07-09 04:00 | Emergency (ER) | payer MEDICARE, OTHER ==
--- NOTE | 2018-07-09 04:27 | ED.PDOC ---
History of Present Illness - General Chief Complaint: Trauma Time Seen by Provider: 07/09/18 04:24 Source: patient, family Exam Limitations: no limitations - History of Present Illness Initial Comments: patient comes in today for fall. Patient states she got up to go the bathroom and lost her balance and fell hitting her back, neck, and left hip and ribs on the bathtub. Patient states she often loses her balance and she did not feel dizzy or weak. She had no loss of consciousness and denies any head injury. She denies any chest pain or shortness of breath. Patient currently has pain in those areas Timing/Duration: 1/2 hour Severity: mild Improving Factors: nothing Worsening Factors: nothing Associated Symptoms: denies symptoms Allergies/Adverse Reactions: Allergies NSAIDs Allergy (Verified 10/28/17 13:10) Home Medications: Ambulatory Orders Calcium Carbonate 600 mg PO BID 10/21/13 Simvastatin [Zocor] 20 mg PO HS 10/21/13 Cyanocobalamin Inj [Vitamin B-12 Inj] 1,000 mcg IM MONTHLY 04/13/17 Denosumab [Prolia] 60 mg SC [id number] 04/13/17 Escitalopram Oxalate [Lexapro] 10 mg PO BEDTIME 04/13/17 Ferrous Gluconate [Fergon] 27 mg PO TID 04/13/17 Letrozole 2.5 mg PO DAILY 04/13/17 Montelukast [Singulair] 10 mg PO BEDTIME 04/13/17 Cholecalciferol [Vitamin D-3] 2,000 unit PO DAILY 09/05/17 Hyoscyamine Sulfate [Levsin] 0.125 mg PO DAILY PRN 09/05/17 Magnesium Oxide 400 mg PO BID 09/05/17 Dexlansoprazole [Dexilant] 60 mg PO BEDTIME 10/28/17 Lamotrigine 200 mg PO BEDTIME 10/28/17 Ranitidine HCl 150 mg PO DAILY 10/28/17 Donepezil Hydrochloride [Donepezil HCl] 10 mg PO BEDTIME 05/24/18 Levalbuterol HCl [Xopenex] 1.25 mg IN Q4HR PRN 05/24/18 Memantine [Namenda] 10 mg PO BID 05/24/18 Tramadol HCl 50 mg PO Q4HR PRN 05/24/18 Zolpidem Tartrate [Ambien] 10 mg PO BEDTIME PRN 05/24/18 Aspirin [Aspirin Enteric Coated Ad] 81 mg PO DAILY #30 tab 05/25/18 Albuterol Sulfate Nebs [Proventil Nebs] 2.5 mg INH QID 06/20/18 Svgkfvaprkd-Tqyfnnjrdxxh-Dbsyl [Trelegy Ellipta 100-62.5-25 Mcg/INH] 1 aer IN DAILY 06/20/18 Levalbuterol Inhaler [Xopenex Hfa 45 Mcg] 2 puff INH BID 06/20/18 Potassium Chloride [K-Tab] 8 meq PO DAILY 06/20/18 Prednisone 5 mg PO DAILY 06/20/18 Tramadol-Acetaminophen [Ultracet] 1 tab PO Q4H PRN 06/20/18 Review of Systems - Review of Systems Constitutional: States: no symptoms reported. Denies: chills, fever, malaise EENTM: States: no symptoms reported. Denies: ear pain, nose congestion Respiratory: States: no symptoms reported. Denies: cough, short of breath Cardiology: States: no symptoms reported. Denies: chest pain, palpitations Gastrointestinal/Abdominal: States: no symptoms reported. Denies: abdominal pain, diarrhea, nausea Genitourinary: States: no symptoms reported Musculoskeletal: States: see HPI Past Medical History (General) - Patient Medical History Hx Seizures: No Hx Stroke: No Hx Dementia: Yes Hx Asthma: Yes Hx of COPD: Yes Hx Cardiac Disorders: Yes - Atrial fib Hx Congestive Heart Failure: Yes Hx Pacemaker: No Hx Hypertension: Yes Hx Thyroid Disease: Yes Hx Diabetes: No Hx Gastroesophageal Reflux: Yes Hx Renal Disease: No Hx Cancer: Yes - Breast Hx of HIV: No Hx Hepatitis C: No Hx MRSA: No - Vaccination History Hx Tetanus, Diphtheria Vaccination: No Hx Influenza Vaccination: Yes Hx Pneumococcal Vaccination: Yes - Social History Hx Tobacco Use: Yes Hx Chewing Tobacco Use: No Hx Alcohol Use: No Hx Substance Use: No Hx Substance Use Treatment: No Hx Depression: Yes Hx Physical Abuse: No Hx Emotional Abuse: No Hx Suspected Abuse: No - Female History Patient : No Family Medical History - Family History Mother Family History: Unknown Living Status: Hx Family Asthma: Yes - parents Hx Family Congestive Heart Failure: Yes Hx Family Hypertension: Yes Hx Family Stroke: Yes - Mother Age of Onset (years of age): 88 Hx Cardiac Disease: Yes - daddy [place] Age of Onset (years of age): 66 Hx Family Diabetes: No Hx Family Cancer: Yes - breast-mom Father Living Status: Hx Family Asthma: No Hx Family Congestive Heart Failure: No Hx Family Hypertension: No Hx Family Stroke: No Hx Cardiac Disease: Yes Hx Family Diabetes: No Hx Family Cancer: No Physical Exam - Physical Exam General Appearance: Alert, Comfortable, No apparent distress Eye Exam: bilateral normal Ears, Nose, Throat: hearing grossly normal, normal ENT inspection, normal pharynx Neck: non-tender, full range of motion, supple, normal inspection Respiratory: chest non-tender, lungs clear, normal breath sounds, no respiratory distress Cardiovascular/Chest: normal peripheral pulses, regular rate, rhythm, no edema, systolic murmur, other - TTP at left rib 8-10 with no crepitus no bruising and right rib 8 with no bruising no crepitus Gastrointestinal/Abdominal: normal bowel sounds, non tender, soft Back Exam: vertebral tenderness - at T5-7 Extremity: non-tender, normal inspection Neurologic: alert, oriented x 3 Progress - Results/Orders Results/Orders: CT cervical spine: no fractures CT chest: L 9th fracture of the rib L hip: no fracture Departure - Departure Clinical Impression: Left rib fracture Qualifiers: Encounter type: initial encounter Rib fracture type: single rib Fracture type: closed Qualified Code(s): S22.32XA - Fracture of one rib, left side, initial encounter for closed fracture Disposition: Discharge to Home or Self Care Condition: Good Departure Forms: ED Discharge - Pt. Copy, Patient Portal Self Enrollment Instructions: DI for Trauma Referrals: Socrates Mclain MD [Primary Care Provider] - 1-2 Weeks Home Medications: Ambulatory Orders Calcium Carbonate 600 mg PO BID 10/21/13 Simvastatin [Zocor] 20 mg PO HS 10/21/13 Cyanocobalamin Inj [Vitamin B-12 Inj] 1,000 mcg IM MONTHLY 04/13/17 Denosumab [Prolia] 60 mg SC [id number] 04/13/17 Escitalopram Oxalate [Lexapro] 10 mg PO BEDTIME 04/13/17 Ferrous Gluconate [Fergon] 27 mg PO TID 04/13/17 Letrozole 2.5 mg PO DAILY 04/13/17 Montelukast [Singulair] 10 mg PO BEDTIME 04/13/17 Cholecalciferol [Vitamin D-3] 2,000 unit PO DAILY 09/05/17 Hyoscyamine Sulfate [Levsin] 0.125 mg PO DAILY PRN 09/05/17 Magnesium Oxide 400 mg PO BID 09/05/17 Dexlansoprazole [Dexilant] 60 mg PO BEDTIME 10/28/17 Lamotrigine 200 mg PO BEDTIME 10/28/17 Ranitidine HCl 150 mg PO DAILY 10/28/17 Donepezil Hydrochloride [Donepezil HCl] 10 mg PO BEDTIME 05/24/18 Levalbuterol HCl [Xopenex] 1.25 mg IN Q4HR PRN 05/24/18 Memantine [Namenda] 10 mg PO BID 05/24/18 Tramadol HCl 50 mg PO Q4HR PRN 05/24/18 Zolpidem Tartrate [Ambien] 10 mg PO BEDTIME PRN 05/24/18 Aspirin [Aspirin Enteric Coated Ad] 81 mg PO DAILY #30 tab 05/25/18 Albuterol Sulfate Nebs [Proventil Nebs] 2.5 mg INH QID 06/20/18 Laznwhyevab-Gnhnxqwldyxj-Jgpqk [Trelegy Ellipta 100-62.5-25 Mcg/INH] 1 aer IN DAILY 06/20/18 Levalbuterol Inhaler [Xopenex Hfa 45 Mcg] 2 puff INH BID 06/20/18 Potassium Chloride [K-Tab] 8 meq PO DAILY 06/20/18 Prednisone 5 mg PO DAILY 06/20/18 Tramadol-Acetaminophen [Ultracet] 1 tab PO Q4H PRN 06/20/18 Additional Instructions: follow up with PCP in 1-2 days. Return to ER for shortness of breath, temp >100.5, productive cough. Hydrocodone dispensed for pain
--- NOTE | 2018-07-09 05:55 | RAD ---
CLINICAL HISTORY: fall with pain COMPARISON: None. TECHNIQUE: XR HIP 2 OR MORE VIEWS 07/09/2018 4:24 AM IT DESKTOP SUPPORT SPECIALIST FINDINGS: There is no fracture. Joint spaces are preserved. Soft tissues are unremarkable. IMPRESSION: No acute osseous findings. Electronically signed by: Paul Kaba MD 07/09/2018 5:52 AM IT DESKTOP SUPPORT SPECIALIST
--- NOTE | 2018-07-09 05:58 | CT ---
CLINICAL HISTORY: fall COMPARISON: April 15, 2017. TECHNIQUE: CT CHEST WITHOUT IV CONTRAST on 07/09/2018 4:49 AM ALTERNATIVE DISPUTE RESOLUTION MEDIATOR This exam was performed according to our departmental dose-optimization program, which includes automated exposure control, adjustment of the mA and/or kV according to patient size and/or use of iterative reconstruction technique. FINDINGS: The heart is enlarged. Main pulmonary artery is dilated measuring 3.9 cm. There is no pericardial effusion. Intrathoracic lymph nodes are not enlarged. There is biapical pleural parenchymal scarring. Central airways are patent. There are scattered areas of atelectasis and scarring in both lungs. There is a moderate hiatal hernia. There is a mildly angulated fracture of the left ninth rib laterally. IMPRESSION: Cardiomegaly with dilated main pulmonary artery which can be seen worsening pulmonary arterial hypertension. Moderate hiatal hernia. No definite pneumonia. Left ninth rib fracture. Electronically signed by: Paul Kaba MD 07/09/2018 5:55 AM ALTERNATIVE DISPUTE RESOLUTION MEDIATOR
--- NOTE | 2018-07-09 05:59 | CT ---
CLINICAL HISTORY: fall COMPARISON: None. TECHNIQUE: CT CERVICAL SPINE WITHOUT IV CONTRAST on 07/09/2018 4:49 AM CORRESPONDENCE SCHOOL TEACHER This exam was performed according to our departmental dose-optimization program, which includes automated exposure control, adjustment of the mA and/or kV according to patient size and/or use of iterative reconstruction technique. FINDINGS: There is no acute fracture. Alignment is anatomic. Moderate diffuse facet arthritis. There is chronic opacification of the right sphenoid sinus. There is moderate narrowing of the C6-7 disc. Vertebral body heights are preserved. Soft tissues are unremarkable. IMPRESSION: No acute fracture or subluxation. Electronically signed by: Paul Kaba MD 07/09/2018 5:56 AM CORRESPONDENCE SCHOOL TEACHER
[2018-07-09] MEDS ORDERED: HYDROcodone 5MG/APAP 325MG 1 EA TAB PO ONE (06:03)
[2018-07-09] MEDS ORDERED: HYDROCOD/APAP 5/325 (ER DISP) #3 TAB PO ONE (06:03)
[2018-07-09 07:11] VITALS: BP 172/90; TEMP 97.9; O2SAT 96
== END 2018-07-09 06:42 | disposition home or self-care (01) ==
LOC: ER 04:00
DX: S22.32XA Fracture of one rib, left side, initial encounter for closed fracture (principal); M54.2 Cervicalgia; F32.9 Major depressive disorder, single episode, unspecified; I48.91 Unspecified atrial fibrillation; J44.9 Chronic obstructive pulmonary disease, unspecified; E07.9 Disorder of thyroid, unspecified; I50.9 Heart failure, unspecified; I11.0 Hypertensive heart disease with heart failure; K21.9 Gastro-esophageal reflux disease without esophagitis; Z85.3 Personal history of malignant neoplasm of breast; Z87.891 Personal history of nicotine dependence; F03.90 Unspecified dementia, unspecified severity, without behavioral disturbance, psychotic disturbance, mood disturbance, and anxiety; Z79.82 Long term (current) use of aspirin; Z79.899 Other long term (current) drug therapy; Z88.6 Allergy status to analgesic agent; W01.198A Fall on same level from slipping, tripping and stumbling with subsequent striking against other object, initial encounter

== ENCOUNTER 2018-08-31 15:27 | Inpatient (IN) | payer MEDICARE, OTHER ==
--- NOTE | 2018-08-31 15:32 | HP ---
CHIEF COMPLAINT: Weakness and shortness of breath. SUPERVISING PHYSICIAN: Abebe Fam MD HISTORY OF PRESENT ILLNESS: This is an 78 year-old female patient who presented to her primary care physician's office, Dr. Mclain, office for extreme weakness and shortness of breath. This has been going on several days but had worsened to the point today that she needed to see her physician. Her daughter actually said it took over 2 hours for her to get ready because she was so weak. When she came to Dr. Mclain' office she had an oxygen saturation in the mid 80s. Her other vital signs were within normal limits but she was very, very pale. In Dr. Mclain' office she had a hemoglobin of 6.6. She has an extensive history of iron-deficiency anemia. She also has end-stage chronic obstructive pulmonary disease. She was visibly tachypneic and Dr. Mclain called me for a direct admission to the hospital. She was brought to the Emergency Room and a chest x- ray was done. Her cardiacs silhouette was slightly enlarged and her aorta partially calcified. She had scattered basilar atelectasis without lobar consolidation. No pleural effusion or pneumothorax. Her electrolytes were basically wrinkle but her BUN was high at 19. Her iron was 10, TIBC was 341.6 and her own saturation was 2.9. Her ferritin is 20.1, B12 is 851 and folate is 9.65. Urinalysis showed dark yellow urine color with 100 urine protein, 15 urine ketones, 3 to 5 urine WBCs. She was typed and crossed for 2 units of packed red blood cells. PAST MEDICAL HISTORY: 1. Coronary artery disease. 2. Hyperlipidemia. 3. Hypertension. 4. Asthma. 5. Chronic obstructive pulmonary disease. 6. Mild mitral and tricuspid regurgitation. 7. Crohn's disease on chronic steroids. 8. Peptic ulcer disease. 9. Osteoporosis. 10. Iron-deficiency anemia. 11. History of breast cancer in 2014 with post surgical resection. 12. Gastroesophageal reflux disease. 13. Mild dementia. PAST SURGICAL HISTORY: 1. Breast surgery. 2. Appendectomy. 3. Tonsillectomy and adenoidectomy. 4. Tubal ligation. 5. Bladder suspension. 6. Cholecystectomy. 7. Hysterectomy. 8. Thyroidectomy. 9. Bilateral cataract removal. CURRENT MEDICATIONS: Per the EMR and awaiting verification. ALLERGIES: NSAIDs FAMILY HISTORY: Positive for heart disease and breast cancer. SOCIAL HISTORY: The patient lives in [place]. She denies smoking, drinking or illicit drug use. She has been exposed to secondary smoke most of her life. REVIEW OF SYSTEMS: Positive for chills, negative for fever or unexplained weight loss. HEENT: Negative for vision changes, sore throat, sinus symptoms or ear pain. RESPIRATORY: Positive for shortness of breath, wheezing, and a mild cough. CARDIOVASCULAR: Negative for chest pains, palpitations or tachycardia. GASTROINTESTINAL: Negative for abdominal pains, nausea, vomiting or diarrhea. GENITOURINARY: Negative for dysuria, hematuria or polyuria. NEUROLOGIC: Positive for weakness and dizziness. Negative for headaches or seizures. PHYSICAL EXAMINATION: VITAL SIGNS: Temperature 99.1, heart rate 76, blood pressure 106/68, respiratory rate 20. 02 saturation is 92% on 2 liters nasal cannula. GENERAL: This is an 78 year-old female patient who is very pale and looks to be moderately ill, sitting in her hospital bed. HEENT: Normocephalic and atraumatic. Pupils are equal and reactive. Oropharynx is clear. Oral mucous membranes are very pale. NECK: Supple without mass. CHEST: Diminished breath sounds throughout with scattered wheezing through bilateral apices. She is tachypneic at times and has to speak in short phrases due to her shortness of breath. There is equal rise and fall with inspiration and expiration. CARDIOVASCULAR: Regular rate and rhythm. ABDOMEN: Soft, nondistended, non-tender. Bowel sounds are positive. EXTREMITIES: No cyanosis, clubbing, or edema. NEUROLOGIC: She is awake, alert and oriented x 3 LABORATORY/RADIOLOGY: Her labs and films are as per the history of present illness. ASSESSMENT: 1. Severe symptomatic anemia, most likely iron-deficiency anemia. 2. Acute exacerbation of chronic obstructive pulmonary disease, most likely exacerbated by her anemia. 3. History of Crohn's disease on chronic steroid therapy. 4. Gastroesophageal reflux disease. 5. Hypertension. 6. Coronary artery disease. 7. Hyperlipidemia. PLAN: We will admit the patient to the hospital. She has been typed and crossed for 2 units of packed red blood cells and we will infuse those overnight. We will recheck her labs in the morning. At this time, I am not going to start her on any antibiotic therapy as I think most of her shortness of breath is due to her severe anemia. At this point, the patient is a DNR. Dr. Mclain has actually talked to the daughter about placing the patient in hospice care at discharge. I will restart her home medications as soon as those are verified. I have also ordered an anemia panel, part of those are still pending. She also has blood cultures that have been drawn. Will do a chest x-ray again in the morning and will continue to monitor closely and follow as needed. Dr. Fam is the collaborating physician available for consultation. #[id number] [facility]
[2018-08-31] MEDS ORDERED: diphenhydrAMINE HCL 50 MG/ML VIAL IV ONE (15:46)
[2018-08-31] MEDS ORDERED: FUROSEMIDE INJ 40 MG/4 ML VIAL IV ONE (15:46)
[2018-08-31] MEDS ORDERED: ACETAMINOPHEN 325 MG TAB PO ONE (15:46)
[2018-08-31] MEDS ORDERED: SODIUM CHLORIDE 0.9% (FLUSH) 10 ML SYG IV PRN (15:50)
[2018-08-31] MEDS ORDERED: ALBUTEROL SULFATE 2.5 MG/3 ML VIAL NEB PRN (15:50)
[2018-08-31] MEDS ORDERED: IV SET AND CAP CHANGE INJ INJ SCH (16:00)
[2018-08-31] MEDS ORDERED: SODIUM CHLORIDE 0.9% 500ML 500 ML IVS SCH (16:00)
--- NOTE | 2018-08-31 16:10 | RAD ---
EXAM DESCRIPTION: Chest,1 View CLINICAL HISTORY: 78 years Female, copd COMPARISON: Chest radiograph 06/20/2018 TECHNIQUE: Single frontal view of the chest. IMPRESSION: Cardiac silhouette is stably enlarged. Aorta is partially calcified. Scattered basilar atelectasis without lobar consolidation otherwise appreciated. No pleural effusion or pneumothorax. Thoracic spondylosis. Electronically signed by: Rashawn Osman MD 08/31/2018 4:06 PM CDT
[2018-08-31] MEDS: IPRATROPIUM/ALBUTEROL 3 ML VIAL INH SCH ×2 (16:50→20:28)
[2018-08-31] MEDS ORDERED: PANTOPRAZOLE SODIUM IV 40 MG VIAL ONE (20:25)
[2018-09-01] MEDS: PANTOPRAZOLE SODIUM IV 40 MG VIAL IV SCH (05:59)
--- NOTE | 2018-09-01 07:32 | RAD ---
EXAM DESCRIPTION: Chest,2 Views: CR/ CLINICAL HISTORY: 78 years Female Pneumonia COMPARISON: Single view chest x-ray 08/31/2018.. Single view chest x-ray 06/20/2018. TECHNIQUE: Two views. PA and Lateral. FINDINGS: Lungs: Hyperinflation bilaterally with stable bilateral densities in the lung bases.. Stable bilateral interstitial process. No new infiltrate. Improved volume in the left lower lobe. Pleural spaces: No effusion or pneumothorax bilaterally. Heart: Borderline cardiomegaly. Pulmonary Vascularity: Not increased. Mediastinum: Not widened. Aorta: Atherosclerotic calcifications. Bony Thorax/Spine: No acute bony thoracic abnormalities. Narrowed intrathoracic disc spaces. IMPRESSION: Mild air trapping in bilateral chronic interstitial markings. No new consolidation or pleural effusion. Stable mild cardiomegaly with pulmonary vascularity not increased. Electronically signed by: Fahad Farley MD 09/01/2018 7:29 AM CDT
[2018-09-01] MEDS: IPRATROPIUM/ALBUTEROL 3 ML VIAL INH SCH ×4 (09:08→20:26)
[2018-09-01] MEDS: Wellbutrin XL 150 MG TAB PO SCH (14:00)
[2018-09-01] MEDS: predniSONE 5 MG TAB PO SCH (14:00)
[2018-09-01] MEDS: NON-FORMULARY MEDICATION 1 EA MIS (Letrozole [Letrozole] 2.5 MG) PO SCH (19:16)
[2018-09-01] MEDS: FERROUS GLUCONATE 325 MG TAB PO SCH (19:56)
[2018-09-01] MEDS: MAGNESIUM OXIDE 400 MG TAB PO SCH (20:37)
[2018-09-01] MEDS: MEMANTINE 10 MG TAB PO SCH (20:37)
[2018-09-01] MEDS ORDERED: DONEPEZIL HCL 5 MG TAB PO SCH (21:00)
[2018-09-01] MEDS ORDERED: lamoTRIgine 25 MG TAB PO SCH (21:00)
[2018-09-01] MEDS ORDERED: ESCITALOPRAM 10 MG TAB PO SCH (21:00)
[2018-09-01] MEDS ORDERED: NON-FORMULARY MEDICATION 1 EA MIS (Dexlansoprazole [Dexilant] 60 MG) PO SCH (21:00)
[2018-09-02] MEDS: PANTOPRAZOLE SODIUM IV 40 MG VIAL IV SCH (06:32)
[2018-09-02] MEDS: IPRATROPIUM/ALBUTEROL 3 ML VIAL INH SCH (08:50)
[2018-09-02] MEDS ORDERED: ASPIRIN (ENTERIC COATED) 81 MG TAB PO SCH (09:00)
[2018-09-02] MEDS ORDERED: SODIUM CHLORIDE 0.9% (FLUSH) 10 ML SYG IV SCH (09:00)
[2018-09-02] MEDS ORDERED: POTASSIUM CHLORIDE 8 MEQ TAB PO SCH ×2 (09:00)
[2018-09-02] MEDS ORDERED: NON-FORMULARY MEDICATION 1 EA MIS (Fluticasone-Umeclidinium-Vilan [Trelegy Ellipta 100-62. INH SCH (09:00)
[2018-09-02 10:29] VITALS: BP 166/73; TEMP 99.5; O2SAT 94
[2018-09-02] MEDS: MEMANTINE 10 MG TAB PO SCH (10:49)
[2018-09-02] MEDS: Wellbutrin XL 150 MG TAB PO SCH (10:50)
[2018-09-02] MEDS: predniSONE 5 MG TAB PO SCH (10:50)
[2018-09-02] MEDS: FERROUS GLUCONATE 325 MG TAB PO SCH (10:50)
[2018-09-02] MEDS: MAGNESIUM OXIDE 400 MG TAB PO SCH (10:50)
[2018-09-02] MEDS: NON-FORMULARY MEDICATION 1 EA MIS (Letrozole [Letrozole] 2.5 MG) PO SCH (10:51)
--- NOTE | 2018-09-02 10:57 | PN ---
SUPERVISING PHYSICIAN: German Marquez MD DATE: 09/01/18 SUBJECTIVE: The patient is sitting on her bed, says she feels a little bit better today, has more energy, not as short of breath after getting 2 units of packed red blood cells. She had no complications with the infusion. She has had no fevers, no chest pain. OBJECTIVE: VITAL SIGNS: Temperature 98.6, pulse 76, blood pressure 126/73, respirations 20, saturation 96% on nasal cannula at 2 liters at rest. I&O: weight 104.1. GENERAL: The patient appears to be comfortable and in no distress. She is alert. CHEST: Lungs clear to auscultation bilaterally. HEART: Regular rate and rhythm. ABDOMEN: Obese, soft, non-tender, positive bowel sounds. EXTREMITIES: Without any edema. NEUROLOGIC: She is alert and oriented x3. LABORATORY: Repeat today, hemoglobin 8.6, hematocrit 26.5, from this morning 8.2 and 25.7 after transfusion of 2 units packed red blood cells. Platelet count remains within normal limits at 360,000. Retic count pending. Chemistries show a mildly low potassium at 3.4, otherwise electrolytes within normal limits. BUN 20, creatinine 1.19. Liver functions all within normal limits. [id number]: Blood cultures remain negative at 24 hours. RADIOLOGY: Chest x-ray per radiology interpretation showed air trapping and bilateral chronic interstitial markings, no new consolidations or pleural effusions with stable mild cardiomegaly with pulmonary vascularity not increased. ASSESSMENT: 1. Severe symptomatic anemia, most likely iron-deficiency anemia. Note the patient received 2 units of packed red blood cells, showing to be improving with her hemoglobin and hematocrit stable with no complications. 2. Acute exacerbation of chronic obstructive pulmonary disease, most likely exacerbated by her anemia, improved with infusion of 2 units of packed red blood cells. 3. History of Crohn's disease on chronic steroid therapy. 4. Gastroesophageal reflux disease. 5. Hypertension. 6. Coronary artery disease. 7. Hyperlipidemia. PLAN: Will continue to monitor the patient closely today and repeat hemoglobin and hematocrit in the morning. She did show improvement at this point. We will hold off on antibiotics given that it seems that her exacerbation relates to her anemia. Will again check her labs in the morning and should she show stable, will hopefully be able to discharge later tomorrow. Until she can transition to outpatient management, we will continue to monitor and treat as needed. #[id number] [facility]
[2018-09-02] MEDS ORDERED: lamoTRIgine 100 MG TAB PO SCH (21:00)
[2018-09-02] MEDS ORDERED: PANTOPRAZOLE SODIUM TAB 40 MG PO SCH (21:00)
--- NOTE | 2018-09-18 09:31 | DS ---
SUPERVISING PHYSICIAN: German Marquez MD ADMISSION DIAGNOSIS: 1. Severe symptomatic anemia, most likely iron-deficiency anemia. 2. Acute exacerbation of chronic obstructive pulmonary disease, most likely exacerbated by her anemia. 3. History of Crohn's disease on chronic steroid therapy. 4. Gastroesophageal reflux disease. 5. Hypertension. 6. Coronary artery disease. 7. Hyperlipidemia. DISCHARGE DIAGNOSIS: 1. Severe symptomatic anemia, most likely iron-deficiency anemia. Note the patient received 2 units of packed red blood cells, showing to be improving with her hemoglobin and hematocrit stable with no complications. 2. Acute exacerbation of chronic obstructive pulmonary disease, most likely exacerbated by her anemia, improved with infusion of 2 units of packed red blood cells. 3. History of Crohn's disease on chronic steroid therapy. 4. Gastroesophageal reflux disease. 5. Hypertension. 6. Coronary artery disease. 7. Hyperlipidemia. REASON FOR HOSPITALIZATION: This is an 78 year-old female patient who presented to her primary care physician's office, Dr. Mclain, for extreme weakness and shortness of breath. This has been going on several days but had worsened to the point today that she needed to see her physician. Her daughter actually said it took over 2 hours for her to get ready because she was so weak. When she came to Dr. Mclain' office she had an oxygen saturation in the mid 80s. Her other vital signs were within normal limits but she was very, very pale. In Dr. Mclain' office she had a hemoglobin of 6.6. She has an extensive history of iron-deficiency anemia. She also has end-stage chronic obstructive pulmonary disease. She was visibly tachypneic and Dr. Mclain called me for a direct admission to the hospital. She was brought to the Emergency Room and a chest x- ray was done. Her cardiacs silhouette was slightly enlarged and her aorta partially calcified. She had scattered basilar atelectasis without lobar consolidation. No pleural effusion or pneumothorax. Her electrolytes were basically wrinkle but her BUN was high at 19. Her iron was 10, TIBC was 341.6 and her own saturation was 2.9. Her ferritin is 20.1, B12 is 851 and folate is 9.65. Urinalysis showed dark yellow urine color with 100 urine protein, 15 urine ketones, 3 to 5 urine WBCs. She was typed and crossed for 2 units of packed red blood cells. LABORATORY: Initial hemoglobin was 6.6. After 2 units of packed red blood cells, hemoglobin and hematocrit were stable and at discharge were hemoglobin 9 and hematocrit 28.4. Platelet count 360,000. Differential was without a left shift. Retic count was 2.1. Absolute retic was 56,070. Chemistries on admission showed normal electrolytes with BUN 19, creatinine 1.13. Iron was 10, TIBC 341, iron saturation 2.9, ferritin 20. Liver functions all within normal limits. Vitamin B12 851, serum folate 9.65. At discharge, potassium 3.4, BUN 20, creatinine 1.18, calcium 9.1. MICROBIOLOGY: Blood culture remained negative after 5 days. Urine showed 100 protein, 15 ketones, otherwise within normal limits. Microscopic showed 3 to 5 RBCs, 3 to 5 WBCs, 1+ bacteria, 220 epithelials. Stool occult blood x1 was negative. RADIOLOGY: Chest x-ray on admission and on the day prior to discharge on 09/01/18 per radiologic interpretation showed mild air trapping in bilateral chronic interstitial markings. No new consolidation or pleural effusion. Stable mild cardiomegaly with pulmonary vascularity not increased. HOSPITAL COURSE: Ms. Castillo was admitted for symptomatic anemia. She was transfused 2 units of packed red blood cells and had no complications after transfusion or intra-transfusion time frame. She was showing stable hemoglobin and hematocrit prior to discharge and was felt clinically stable enough to be discharged to continue with outpatient management. PLAN: Ms. Castillo was discharged on 09/02/18 with instructions to followup with Dr. Mclain on 09/04/18. She was to resume her home medications as prior to hospitalization. She was given warnings and instructions to return to the hospital for any concerning symptoms. No new medications prescribed at discharge. Diet at discharge was regular diet as tolerated. Activity to increase as tolerated. CONDITION AT DISCHARGE: Stable and improving. DISPOSITION: The patient was discharged to the care of family. #[id number] [facility]
== END 2018-09-02 13:35 | disposition home or self-care (01) | DRG 812 ==
LOC: MS 15:27
PROVIDERS: ADMIT Nurse Practitioner Acute Care; ATTEND Nurse Practitioner Acute Care
PROC: 30233N1 Transfusion of Nonautologous Red Blood Cells into Peripheral Vein, Percutaneous Approach (ICD-10-PCS; principal; 2018-08-31)
DX: D50.9 Iron deficiency anemia, unspecified (principal); J44.1 Chronic obstructive pulmonary disease with (acute) exacerbation; K50.90 Crohn's disease, unspecified, without complications; K21.9 Gastro-esophageal reflux disease without esophagitis; I10 Essential (primary) hypertension; I25.10 Atherosclerotic heart disease of native coronary artery without angina pectoris; E78.5 Hyperlipidemia, unspecified; I08.1 Rheumatic disorders of both mitral and tricuspid valves; M81.0 Age-related osteoporosis without current pathological fracture; F03.90 Unspecified dementia, unspecified severity, without behavioral disturbance, psychotic disturbance, mood disturbance, and anxiety; Z66 Do not resuscitate; Z85.3 Personal history of malignant neoplasm of breast; Z88.6 Allergy status to analgesic agent; Z79.52 Long term (current) use of systemic steroids

== ENCOUNTER → 2018-09-03 | Outpatient (CLI) | payer MEDICARE, OTHER | LOC: YCHH 16:53 | PROVIDERS: ATTEND Family Medicine | DX: K92.2 Gastrointestinal hemorrhage, unspecified (principal) ==

== ENCOUNTER → 2018-09-06 | Outpatient (CLI) | payer MEDICARE, OTHER | LOC: YCHH 16:31 | PROVIDERS: ATTEND Family Medicine | DX: D64.9 Anemia, unspecified (principal) ==

== ENCOUNTER 2018-09-12 17:28 | Emergency (ER) | payer MEDICARE, OTHER ==
--- NOTE | 2018-09-12 19:17 | RAD ---
EXAM DESCRIPTION: Pelvis CLINICAL HISTORY: 78 years Female fall with pain COMPARISON: None TECHNIQUE: AP view of the pelvis was obtained. FINDINGS: No acute fracture seen. Patent simulating electrode wire present overlying the left sacrum. Electrodes overlying the right iliac crest. Degenerative changes symphysis pubis. Moderate bony demineralization. IMPRESSION: No acute fracture or dislocation seen. Electronically signed by: Sera Jensen MD 09/12/2018 7:13 PM CDT
--- NOTE | 2018-09-12 19:20 | RAD ---
EXAM DESCRIPTION: Chest,1 View CLINICAL HISTORY: 78 years Female recurrent falls COMPARISON: September 01, 2018. TECHNIQUE: AP view of the chest was obtained. FINDINGS: Cardiac silhouette is enlarged. Central vessels are moderately increased. Patchy airspace opacities lower lungs bilaterally left greater than right not significantly changed. No effusion on right. Possible small effusion on left. No pneumothorax. IMPRESSION: Enlarged heart with moderate central congestion. Atelectatic change versus infiltrate lower lungs bilaterally left greater than right. Findings overall unchanged when correlated with the prior study. Electronically signed by: Sera Jensen MD 09/12/2018 7:16 PM CDT
--- NOTE | 2018-09-12 19:21 | RAD ---
EXAM DESCRIPTION: Hip,Left 2 Views CLINICAL HISTORY: 78 years Female fall with pain COMPARISON: None TECHNIQUE: Two images of the left hip were obtained. FINDINGS: Satisfactory articulation left femoral head with acetabular region. No fracture seen. Gluteal calcifications. Mild joint space narrowing. IMPRESSION: No acute fracture or dislocation seen. Mild degenerative change. Electronically signed by: Sera Jensen MD 09/12/2018 7:17 PM CDT
--- NOTE | 2018-09-12 19:22 | RAD ---
EXAM DESCRIPTION: Knee,Left Complete CLINICAL HISTORY: 78 years Female fall with pain COMPARISON: None TECHNIQUE: Three images of the left knee were obtained. FINDINGS: No fracture seen. Marked degenerative spurring lateral joint compartment. Mild degenerative spurring medial joint compartment. No significant joint space narrowing. Moderate posterior patellar spurring with narrowing of the patellofemoral joint space. Small joint effusion. Suspected vascular calcifications. IMPRESSION: No acute fracture or dislocation seen. Moderate osteoarthritic change. Small joint effusion. Electronically signed by: Sera Jensen MD 09/12/2018 7:19 PM CDT
--- NOTE | 2018-09-12 19:25 | RAD ---
EXAM DESCRIPTION: Lumbar Spine 3 Views CLINICAL HISTORY: 78 years Female fall with pain COMPARISON: CT scan of the lumbar spine dated May 24, 2018. TECHNIQUE: Three images of the lumbar spine were obtained. FINDINGS: More remote compression fractures T12 and L1 vertebral bodies unchanged. Height of the remaining lumbar vertebral bodies is intact. 6 mm anterior subluxation L4 with relationship to L5 unchanged. Moderate bony demineralization. No erosive or lytic lesions seen. Marked vascular calcification. IMPRESSION: More remote fractures T12 and L1 vertebral bodies unchanged. Grade 1 spondylolisthesis L4-L5 unchanged. No acute fracture or subluxation seen. Electronically signed by: Sera Jensen MD 09/12/2018 7:22 PM CDT
--- NOTE | 2018-09-12 19:28 | CT ---
EXAM DESCRIPTION: Head CLINICAL HISTORY: 78 years Female fall wiht facial contusion, mild ams COMPARISON: None TECHNIQUE: Images were obtained in axial, sagittal, and coronal planes. This exam was performed according to our departmental dose-optimization program which includes use of Automated Exposure Control, adjustment of the mA and/or kV according to patient size and/or use of iterative reconstruction technique. FINDINGS: Ventricular system is mildly enlarged. Mild prominence of the cortical sulci. No abnormal areas of increased or decreased attenuation seen. No extra-axial fluid collections noted. No evidence for skull fracture. Symmetric aeration mastoid air cells bilaterally. Unremarkable paranasal sinuses. IMPRESSION: No acute intracranial abnormality. No evidence for hemorrhage, mass lesion, or large acute infarction. Age-appropriate changes. Electronically signed by: Sera Jensen MD 09/12/2018 7:25 PM CDT
[2018-09-12] MEDS ORDERED: AMOXICILLIN & POT CLAVULANATE 875 MG TAB PO ONE (19:39)
--- NOTE | 2018-09-12 19:46 | ED.PDOC ---
History of Present Illness - General Chief Complaint: Trauma Stated Complaint: s/p fall x2 Time Seen by Provider: 09/12/18 17:59 Source: patient, family Exam Limitations: other - mild dementia - History of Present Illness Initial Comments: the patient is an 78-year-old female presenting to emergency room secondary to 2 falls in the last 3 days. The patient is staying at her son's house and she is not used to staying at. She had a fall Tuesday that get her right side of her face and she has a bruise to the right chin and a bruise to the right cheek. Extraocular movements are intact. Nasal bridges straight. She does have a loose upper incisor. No difficulty with occlusion however. No neck pain. Son seems to think she is a little weaker than normal. The patient is reporting some left knee pain from a fall today. Is also mild increased low back pain from the fall today. No syncope. No real altered mental status. In her previous environment she was getting therapy fairly frequently. She has not had any therapy since she moved to this new environment. Family and patient are most pleasant and cooperative. Patient does have some mild dementia. Severity: moderate Improving Factors: immobilization Worsening Factors: movement Associated Symptoms: malaise, weakness - generalized Allergies/Adverse Reactions: Allergies NSAIDs Allergy (Verified 10/28/17 13:10) Home Medications: Ambulatory Orders Calcium Carbonate 600 mg PO BID 10/21/13 Simvastatin [Zocor] 20 mg PO HS 10/21/13 Cyanocobalamin Inj [Vitamin B-12 Inj] 1,000 mcg IM MONTHLY 04/13/17 Escitalopram Oxalate [Lexapro] 10 mg PO BEDTIME 04/13/17 Ferrous Gluconate [Fergon] 27 mg PO DAILY 04/13/17 Letrozole 2.5 mg PO DAILY 04/13/17 Montelukast [Singulair] 10 mg PO BEDTIME 04/13/17 Cholecalciferol [Vitamin D-3] 1,000 unit PO DAILY 09/05/17 Hyoscyamine Sulfate [Levsin] 0.125 mg PO DAILY PRN 09/05/17 Magnesium Oxide 250 mg PO BID 09/05/17 Dexlansoprazole [Dexilant] 60 mg PO BEDTIME 10/28/17 Lamotrigine 200 mg PO BEDTIME 10/28/17 Ranitidine HCl 150 mg PO DAILY 10/28/17 Donepezil Hydrochloride [Donepezil HCl] 10 mg PO BEDTIME 05/24/18 Memantine [Namenda] 10 mg PO BID 05/24/18 Tramadol HCl 50 mg PO Q4HR PRN 05/24/18 Zolpidem Tartrate [Ambien] 10 mg PO BEDTIME PRN 05/24/18 [id number]-[id number]-Wfwup [Trelegy Ellipta 100-62.5-25 Mcg/INH] 1 aer IN DAILY 06/20/18 Potassium Chloride [K-Tab] 8 meq PO DAILY 06/20/18 Prednisone 5 mg PO DAILY 06/20/18 Bupropion HCl [Wellbutrin Sr] 150 mg PO DAILY 08/31/18 Amoxicillin & Pot Clavulanate [Augmentin Tab] 875 mg PO BID #14 tab 09/12/18 Denosumab [Prolia] 60 mg SC .[id number] 09/12/18 Review of Systems - Review of Systems Constitutional: States: malaise EENTM: States: no symptoms reported Respiratory: States: no symptoms reported Cardiology: States: no symptoms reported Gastrointestinal/Abdominal: States: no symptoms reported Genitourinary: States: no symptoms reported Musculoskeletal: States: see HPI Skin: States: see HPI Neurological: States: see HPI Endocrine: States: no symptoms reported All other Systems: No Change from Baseline Past Medical History (General) - Patient Medical History Hx Seizures: No Hx Stroke: No Hx Dementia: Yes Hx Asthma: Yes Hx of COPD: Yes Hx Cardiac Disorders: Yes Hx Congestive Heart Failure: Yes Hx Pacemaker: No Hx Hypertension: Yes Hx Thyroid Disease: Yes Hx Diabetes: No Hx Gastroesophageal Reflux: Yes Hx Renal Disease: No Hx Cancer: Yes - Breast Hx of HIV: No Hx Hepatitis C: No Hx MRSA: No Surgical History: appendectomy, cholecystectomy, tonsillectomy, Hysterectomy - Vaccination History Hx Tetanus, Diphtheria Vaccination: No Hx Influenza Vaccination: Yes Hx Pneumococcal Vaccination: Yes - Social History Hx Tobacco Use: Yes Hx Chewing Tobacco Use: No Hx Alcohol Use: No Hx Substance Use: No Hx Substance Use Treatment: No Hx Depression: Yes Hx Physical Abuse: No Hx Emotional Abuse: No Hx Suspected Abuse: No - Female History Patient : No Family Medical History - Family History Mother Family History: Unknown Living Status: Hx Family Asthma: Yes - parents Hx Family Congestive Heart Failure: Yes Hx Family Hypertension: Yes Hx Family Stroke: Yes - Mother Age of Onset (years of age): 88 Hx Cardiac Disease: Yes - dad[place] Age of Onset (years of age): 66 Hx Family Diabetes: No Hx Family Cancer: Yes - breast-mom Father Living Status: Hx Family Asthma: No Hx Family Congestive Heart Failure: No Hx Family Hypertension: No Hx Family Stroke: No Hx Cardiac Disease: Yes Hx Family Diabetes: No Hx Family Cancer: No Physical Exam - Physical Exam General Appearance: Alert, Comfortable, No apparent distress Eye Exam: bilateral normal - extraocular movements are intact. No pain with extraocular movements. No proptosis. pupils are reactive. Ears, Nose, Throat: hearing grossly normal, normal ENT inspection - with the exception of the upper loose incisor, other - she does have bruising to her face as described in history of present illness Neck: full range of motion, supple Respiratory: no respiratory distress, no accessory muscle use, other - very mild bibasilar rales. Cardiovascular/Chest: normal peripheral pulses, no edema, other - regular rate Peripheral Pulses: radial,right: 2+, radial,left: 2+, dorsalis pedis,right: 2+, dorsalis pedis,left: 2+ Gastrointestinal/Abdominal: non tender, soft, other - mildly obese Rectal Exam: deferred Back Exam: no vertebral tenderness, other - hronic diffuse pain. No obvious new trauma. Extremity: no calf tenderness, normal capillary refill, pedal edema - mild chronic edema but no obvious new edema., other - she does have pain to her left knee where she did fall on itearlier today. Good active passive range of motion. She was able to stand on it after she was able to get up. Neurologic: blockers skiver II-XII nml as tested, alert, normal mood/affect, oriented x 3 Skin Exam: normal color - ith the exception of the bruises and the abrasion of the left knee. Comments: Vital Signs - 24 hr 09/12/18 09/12/18 09/12/18 17:45 19:09 19:20 Temperature 98 F Pulse Rate [ 94 H 70 76 Right Brachial] Respiratory 20 20 Rate Blood Pressure 136/66 139/62 138/52 [Right Arm] O2 Sat by Pulse 91 L 95 Oximetry Progress - Progress Progress: 09/12/18 19:49 the patient's an 78-year-old female presenting to the emergency room secondary to 2 falls over the last several days. This does very likely have to do with a change in environment. She needs to ambulate carefully. The patient does have some generalized weakness and would benefit from continuation of physical therapy. The patient will likely be sore from her falls for the next week or so. Imaging of the head, pelvis, lumbar spine and knee and hip show no evidence of any acute pathologies. Chest x-ray does show the possibility of a mild bibasilar infiltrate and there is a mild leukocytosis. The patient will be treated for supposed pneumonia with Augmentin twice daily for the next 7 days. She is saturating well. She also has moderate anemia but is not up to the standard of transfusion at this time. These 2 issues do need to be followed. ER warnings were given for any significant worsening. Ambulate carefully prevent further falls and further injuries. - Results/Orders Results/Orders: CT scan of the head shows no acute pathology. X-ray of the pelvis, lumbar spine, left knee and left hip show chronic degenerative changes but no acute pathology. Chest x-ray shows very mildly increased cardiomegaly and mild bibasilar infiltrates versus atelectasis. Laboratory Tests 09/12/18 09/12/18 09/12/18 18:09 18:09 18:52 WBC 10.8 RBC 3.50 L Hgb 8.5 L Hct 27.7 L MCV 79.2 L MCH 24.4 L MCHC 30.7 L RDW 22.2 H Plt Count 354 MPV 7.6 Absolute Neuts (auto) 9.40 H Absolute Lymphs (auto) 0.60 L Absolute Monos (auto) 0.70 Absolute Eos (auto) 0.10 Absolute Basos (auto) 0.10 Neutrophils % 86.5 H Lymphocytes % 5.8 L Monocytes % 6.2 Eosinophils % 0.9 L Basophils % 0.6 Normal RBC Morphology 1+microcytosis Sodium 135 Potassium 4.7 Chloride 97 L Carbon Dioxide 27 Anion Gap 15.7 BUN 17 Creatinine 1.25 BUN/Creatinine Ratio 13.6 Random Glucose 108 H Serum Osmolality 272.2 L Calcium 9.2 Magnesium 2.5 Total Bilirubin 0.4 AST 19 ALT 14 Alkaline Phosphatase 91 Serum Total Protein 6.6 Albumin 3.1 L Globulin 3.5 Albumin/Globulin Ratio 0.9 L Urine Color Yellow Urine Appearance Cloudy H Urine pH 5.0 Ur Specific [place] >= 1.030 Urine Protein 100 H Urine Glucose (UA) Negative Urine Ketones Trace Urine Blood Negative Urine Nitrite Negative Urine Bilirubin Moderate Urine Urobilinogen 1.0 Ur Leukocyte Esterase Negative Urine RBC 0-1 Urine WBC 5-10 H Ur Epithelial Cells 10-20 Amorphous Sediment 1+ Urine Bacteria 2+ H Hyaline Casts 1-3 Urine Mucus Moderate Departure - Departure Clinical Impression: Chronic anemia, Physical deconditioning Fall at home Qualifiers: Encounter type: initial encounter Qualified Code(s): W19.XXXA - Unspecified fall, initial encounter; Y92.009 - Unspecified place in unspecified non- institutional (private) residence as the place of occurrence of the external cause Pneumonia Qualifiers: Pneumonia type: due to unspecified organism Laterality: bilateral Lung location: lower lobe of lung Qualified Code(s): J18.1 - Lobar pneumonia, unspecified organism Disposition: Discharge to Home or Self Care Condition: Fair Departure Forms: ED Discharge - Pt. Copy, Patient Portal Self Enrollment Instructions: DI for Trauma, Pneumonia, Adult (DC), Preventing Falls, Anemia Caused by Low Iron Diet: regular diet Activity: increase activity as tolerated Referrals: Socrates Mclain MD [Primary Care Provider] - 1-5 Days Prescriptions: Amoxicillin & Pot Clavulanate [Augmentin Tab] 875 mg PO BID #14 tab Home Medications: Ambulatory Orders Calcium Carbonate 600 mg PO BID 10/21/13 Simvastatin [Zocor] 20 mg PO HS 10/21/13 Cyanocobalamin Inj [Vitamin B-12 Inj] 1,000 mcg IM MONTHLY 04/13/17 Escitalopram Oxalate [Lexapro] 10 mg PO BEDTIME 04/13/17 Ferrous Gluconate [Fergon] 27 mg PO DAILY 04/13/17 Letrozole 2.5 mg PO DAILY 04/13/17 Montelukast [Singulair] 10 mg PO BEDTIME 04/13/17 Cholecalciferol [Vitamin D-3] 1,000 unit PO DAILY 09/05/17 Hyoscyamine Sulfate [Levsin] 0.125 mg PO DAILY PRN 09/05/17 Magnesium Oxide 250 mg PO BID 09/05/17 Dexlansoprazole [Dexilant] 60 mg PO BEDTIME 10/28/17 Lamotrigine 200 mg PO BEDTIME 10/28/17 Ranitidine HCl 150 mg PO DAILY 10/28/17 Donepezil Hydrochloride [Donepezil HCl] 10 mg PO BEDTIME 05/24/18 Memantine [Namenda] 10 mg PO BID 05/24/18 Tramadol HCl 50 mg PO Q4HR PRN 05/24/18 Zolpidem Tartrate [Ambien] 10 mg PO BEDTIME PRN 05/24/18 [id number]-Fzlfsbhsgaud-Zijlk [Trelegy Ellipta 100-62.5-25 Mcg/INH] 1 aer IN DAILY 06/20/18 Potassium Chloride [K-Tab] 8 meq PO DAILY 06/20/18 Prednisone 5 mg PO DAILY 06/20/18 Bupropion HCl [Wellbutrin Sr] 150 mg PO DAILY 08/31/18 Amoxicillin & Pot Clavulanate [Augmentin Tab] 875 mg PO BID #14 tab 09/12/18 Denosumab [Prolia] 60 mg SC .[id number] 09/12/18 Additional Instructions: the patient's an 78-year-old female presenting to the emergency room secondary to 2 falls over the last several days. This does very likely have to do with a change in environment. She needs to ambulate carefully. The patient does have some generalized weakness and would benefit from continuation of physical therapy. The patient will likely be sore from her falls for the next week or so. Imaging of the head, pelvis, lumbar spine and knee and hip show no evidence of any acute pathologies. Chest x-ray does show the possibility of a mild bibasilar infiltrate and there is a mild leukocytosis. The patient will be treated for supposed pneumonia with Augmentin twice daily for the next 7 days. She is saturating well. She also has moderate anemia but is not up to the standard of transfusion at this time. These 2 issues do need to be followed. ER warnings were given for any significant worsening. Ambulate carefully prevent further falls and further injuries.
[2018-09-12 20:16] VITALS: BP 141/64; TEMP 98.3; O2SAT 96
== END 2018-09-12 20:16 | disposition home or self-care (01) ==
LOC: ER 17:28
DX: J18.1 Lobar pneumonia, unspecified organism (principal); D64.9 Anemia, unspecified; R53.1 Weakness; M25.562 Pain in left knee; S00.83XA Contusion of other part of head, initial encounter; M54.5 Low back pain; F03.90 Unspecified dementia, unspecified severity, without behavioral disturbance, psychotic disturbance, mood disturbance, and anxiety; J44.9 Chronic obstructive pulmonary disease, unspecified; I50.9 Heart failure, unspecified; I11.0 Hypertensive heart disease with heart failure; E07.9 Disorder of thyroid, unspecified; K21.9 Gastro-esophageal reflux disease without esophagitis; F32.9 Major depressive disorder, single episode, unspecified; Z85.3 Personal history of malignant neoplasm of breast; Z87.891 Personal history of nicotine dependence; Z79.899 Other long term (current) drug therapy; Z88.6 Allergy status to analgesic agent; Z91.81 History of falling; W06.XXXA Fall from bed, initial encounter; Y92.009 Unspecified place in unspecified non-institutional (private) residence as the place of occurrence of the external cause

== ENCOUNTER → 2018-11-15 | Outpatient (CLI) | payer MEDICARE, OTHER | LOC: YCHH 16:01 | PROVIDERS: ATTEND Family Medicine | DX: D64.9 Anemia, unspecified (principal); R06.02 Shortness of breath; D50.8 Other iron deficiency anemias ==

== ENCOUNTER → 2018-12-15 | Outpatient (CLI) | payer MEDICARE, OTHER | LOC: YCHH 10:07 | PROVIDERS: ATTEND Family Medicine | DX: D64.9 Anemia, unspecified (principal); N18.9 Chronic kidney disease, unspecified; E53.8 Deficiency of other specified B group vitamins; E78.5 Hyperlipidemia, unspecified; I50.9 Heart failure, unspecified; I25.10 Atherosclerotic heart disease of native coronary artery without angina pectoris ==

== ENCOUNTER → 2019-04-18 | Outpatient (CLI) | payer MEDICARE, OTHER | LOC: BFHOS 17:17 | PROVIDERS: ATTEND Family Medicine | DX: R30.0 Dysuria (principal); R39.15 Urgency of urination ==

== ENCOUNTER → 2019-05-23 | Outpatient (CLI) | payer MEDICARE, OTHER | LOC: BFHOS 15:23 | PROVIDERS: ATTEND Family Medicine | DX: R30.0 Dysuria (principal) ==